=== PATIENT | male | born 1945 | race Caucasian/White ===

== ENCOUNTER → 2016-12-17 | Outpatient (CLI) | payer OTHER ==
[2016-04-22 11:12] VITALS: BP 114/72
--- NOTE | 2016-12-17 11:27 | MRI ---
MRI right knee without contrast Indication: Right knee pain Technique: Multisequence, multiplanar MR images of the right knee were obtained without IV contrast. Comparison: None Findings: No acute fracture, malalignment or suspicious osseous lesion is identified. There is diffuse, full thickness cartilage loss throughout the medial femorotibial compartment with patchy subchondral edema within the posterior weight-bearing medial femoral condyle. The lateral fem otibial and patellofemoral articular cartilage appears relatively well-maintained apart from small p artial thickness cartilage fissures along the mid sagittal ridge and medial patellar facet. Advanced degenerative changes of the proximal tibiofibular articulation are noted with prominent subchondral cyst formation. A small intraosseous ganglion within the posterior lateral tibial plateau is presen t. Prominent tricompartmental marginal osteophytes are noted. There is a small joint effusion. No lo ose intra-articular bodies or Malhotra's cyst is identified. There is a complex degenerative tear of the posterior horn medial meniscus with involvement of the p osterior root. There is also a complex central free edge tear of the medial meniscal body with exten patrick into the anterior junctional zone. There is small, 8 mm multiseptated cyst within the inferior medial gutter, likely a parameniscal cyst. The lateral meniscus is intact. The ACL is attenuated with diffuse intermediate intrasubstance signal. The PCL is intact. There is s mall edema surrounding the superficial MCL, which appears intact. The major lateral stabilizers of t he knee and extensor mechanism are unremarkable. Impression: 1. 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 2. Associated complex degenerative tears of the posterior horn and body medial meniscus with an 8 mm parameniscal cyst within the inferior medial gutter. 3. Mild edema surrounding the intact superficial MCL is either reactive from meniscal tear or reflec t mild grade 1 sprain. 4. 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 5. Small, likely reactive joint effusion. Mucoid ACL Reported By:
== END ==
LOC: RAD 08:31
PROVIDERS: ATTEND Internal Medicine
DX: M25.561 Pain in right knee (principal); M17.0 Bilateral primary osteoarthritis of knee
CPT/HCPCS: 73721

== ENCOUNTER 2020-11-23 14:12 | Inpatient (IN) ==
[2020-11-23 16:43] LABS: BASOPHILS % (AUTO) 0.1 % (0.2-1.0); EOSINOPHILS % (AUTO) 0.5 % (0.9-2.9); HEMOGLOBIN 12.9 g/dL (13.5-18.0); LYMPHOCYTES # (AUTO) 0.1 X10^3/uL (1.3-2.9); LYMPHOCYTES % (AUTO) 1.3 % (21.0-51.0); MEAN CORPUSCULAR HEMOGLOBIN 33.1 pg (27.0-34.0); MEAN CORPUSCULAR HGB CONC 34.8 g/dL (33.0-35.0); MEAN CORPUSCULAR VOLUME 95.2 fL (80.0-100.0); MEAN PLATELET VOLUME 10.2 fL (7.4-11.0); MONOCYTES # (AUTO) 0 x10^3/uL (0.3-0.8); MONOCYTES % (AUTO) 0.8 % (0.0-13.0); NEUTROPHILS # (AUTO) 4.7 x10^3/uL (2.2-4.8); NEUTROPHILS % (AUTO) 97.3 % (42.0-75.0); PLATELET COUNT 78 X10^3/uL (150.0-450.0); RED BLOOD COUNT 3.89 X10^6/uL (4.7-6.0); RED CELL DISTRIBUTION WIDTH 14.9 % (11.6-16.5); WHITE BLOOD COUNT 4.8 X10^3/uL (3.6-10.0)
[2020-11-23 16:52] LABS: ALBUMIN 2.6 g/dL (3.4-5.0); CALCIUM 9.1 mg/dL (8.5-10.1); COR CA(FOR HYPOALB) 10.2 mg/dL (8.5-10.1); CREATININE 4.45 mg/dL (0.70-1.30); TOTAL PROTEIN 7.3 g/dL (6.4-8.2)
[2020-11-23 16:58] LABS: BAND NEUTROPHILS % 12 % (0-10); PLATELET MORPHOLOGY COMMENT NORMAL (NORMAL)
[2020-11-23] MEDS ORDERED: LEVAQUIN PREMIX IV 500 MG 500 MG/100 ML BAG IV SCH (17:00)
[2020-11-23] MEDS ORDERED: NS 100 ML IV 100 ML ONE (17:23)
[2020-11-23] MEDS: NS 1000 ML 1,000 ML IV SCH (17:51)
[2020-11-23] MEDS: ZOSYN VIAL 3.375 GRAMS 3.375 G in NS 100 ML IV + SPIKE MINIBAG* 100 ML IV SCH ×2 (18:32→23:25)
[2020-11-23 18:59] LABS: CKMB % 1.8 % (<4); CREATINE KINASE 56 Units/L (39-308); CREATINE KINASE MB < 1.0 ng/mL (0-4.0); TROPONIN I < 0.02 ng/mL (0-1.5)
[2020-11-23] MEDS ORDERED: DILAUDID PO PRN (19:59)
[2020-11-23] MEDS: ZOCOR TAB 40 MG PO SCH (20:55)
[2020-11-23] MEDS: LIPITOR TAB 40 MG PO SCH (20:55)
[2020-11-23] MEDS: CARDIZEM CD 240 MG 24-HR PO SCH (23:28)
[2020-11-24] MEDS: NS 1000 ML 1,000 ML IV SCH ×5 (05:33→21:05)
[2020-11-24] MEDS: ZOSYN VIAL 3.375 GRAMS 3.375 G in NS 100 ML IV + SPIKE MINIBAG* 100 ML IV SCH (05:34)
[2020-11-24] MEDS: SYNTHROID 50 mcg TAB PO SCH (06:15)
[2020-11-24 06:31] LABS: BASOPHILS % (AUTO) 0.4 % (0.2-1.0); EOSINOPHILS # (AUTO) 0.4 x10^3/uL (0.0-0.2); EOSINOPHILS % (AUTO) 6.9 % (0.9-2.9); HEMATOCRIT 33.8 % (42.0-54.0); HEMOGLOBIN 11.8 g/dL (13.5-18.0); LYMPHOCYTES # (AUTO) 0.3 X10^3/uL (1.3-2.9); LYMPHOCYTES % (AUTO) 3.9 % (21.0-51.0); MEAN CORPUSCULAR HEMOGLOBIN 33.2 pg (27.0-34.0); MEAN CORPUSCULAR HGB CONC 34.9 g/dL (33.0-35.0); MEAN CORPUSCULAR VOLUME 95.1 fL (80.0-100.0); MONOCYTES # (AUTO) 0.4 x10^3/uL (0.3-0.8); MONOCYTES % (AUTO) 5.8 % (0.0-13.0); NEUTROPHILS # (AUTO) 5.3 x10^3/uL (2.2-4.8); PLATELET COUNT 73 X10^3/uL (150.0-450.0); RED BLOOD COUNT 3.55 X10^6/uL (4.7-6.0); RED CELL DISTRIBUTION WIDTH 15.2 % (11.6-16.5); WHITE BLOOD COUNT 6.4 X10^3/uL (3.6-10.0)
[2020-11-24 06:42] LABS: LACTIC ACID 2.5 mmol/L (0.4-2.0)
[2020-11-24 06:44] LABS: ALBUMIN 2.2 g/dL (3.4-5.0); CALCIUM 8.4 mg/dL (8.5-10.1); CARBON DIOXIDE 16.1 mmol/L (21-32); COR CA(FOR HYPOALB) 9.8 mg/dL (8.5-10.1); CREATININE 4.75 mg/dL (0.70-1.30); TOTAL PROTEIN 6.7 g/dL (6.4-8.2)
[2020-11-24 07:18] LABS: BAND NEUTROPHILS % 17 % (0-10); PLATELET MORPHOLOGY COMMENT NORMAL (NORMAL)
[2020-11-24] MEDS: VITAMIN D3 125 mcg (5,000 UNITS) PO SCH (08:25)
[2020-11-24] MEDS: ASPIRIN EC 81 MG PO SCH (08:25)
[2020-11-24] MEDS: CARDIZEM CD 240 MG 24-HR PO SCH ×2 (08:25→21:00)
[2020-11-24] MEDS: HEMOCYTE-PLUS PO SCH (08:25)
[2020-11-24] MEDS ORDERED: LEVOTHYROXINE 50 MCG PO SCH (09:00)
[2020-11-24] MEDS ORDERED: FERROUS SULFATE PO SCH (09:00)
--- NOTE | 2020-11-24 10:03 | DR.H&P ---
H&P - History & Physical for Day of: H&P Date: 11/23/20 - Chief Complaint Chief Complaint: SOB, LOWER EXTREMITY WEAKNESS, LEFT KNEE PAIN AND SWELLING, CHILLS, VOMITING, DECREASED APPETITE - History of Present Illness History of Present Illness: IS A 75 YEAR OLD W/M WHO IS A PATIENT OF OURS. HE WAS A DIRECT ADMISSION TO THE HOSPITAL DUE TO COMPLAINTS OF SHORTNESS OF BREATH, WEAKNESS TO BILATERAL LOWER EXTREMITIES. LEFT KNEE PAIN AND SWELLING. PATIENT REPORTS THAT HE HAS BEEN UNABLE TO BEAR WEIGHT ON THE LEFT LEG. PATIENT ALSO COMPLAINS OF CHILLS, VOMITING, AND DECREASED APPETITE. LEFT KNEE PAIN IS DESCRIBED THROBBING, CONSTANT, AND WAS RATED A 7/10. HE WAS SEEN IN THE ER ON 11/22. LABS WERE DRAWN AT THAT TIME. HIS BUN WAS 40 AND CREATININE 2.35. CHEST XRAY FROM THE ER REVEALED CARDIOMEGALY AND PULMONARY VASCULAR CONGESTION. LEFT KNEE XRAY REVEALED: SOFT TISSUE SWELLING WITH PROBABLE SMALL JOINT EFFUSION. HE WAS SENT HOME TO FOLLOW UP WITH US, HOWEVER SYMPTOMS PERSISTED AND WEAKNESS HAS PROGRESSIVELY GOTTEN WORSE. PATIENTS SPOUSE REPORTS THAT SHE HAS TO CALL HER SONS TO ASSIST THE PATIENT IN AMBULATING DUE TO SEVERE WEAKNESS. ON PATIENTS ARRIVAL TO THE HOSPITAL FOR ADMISSION, HIS VITALS WERE 98.0-80-24-95%-101/63. LABS WERE OBTAINED. ABNORMAL LAB VALUES INCLUDE THE FOLLOWING: RBC 3.89, HGB 12.9, HCT 37.0, PLT COUNT 78, POTASSIUM 3.1, BUN 61, CREATININE 4.45, GLCUOSE 181, TOTAL BILI 1.80, ALK PHOS 195, ALBUMIN 2.6, GLOBULIN 4.7, LACTIC ACID 4.8. STOOL IS POSITIVE FOR OCCULT BLOOD AND WHITE CELLS. BLOOD AND STOOL CULTURES WERE SET UP. HE WAS STARTED ON NORMAL SALINE AT 150 ML/HR, ZOSYN 3.375G IV TID, LEVAQUIN 250MG IV Q48H, HUMULIN R SLIDING SCALE, OTBS ACHS, AND HIS HOME MEDICATIONS OF ECOTRIN 81MG, LIPITOR, CARDIZEM, DILAUDID, SYNTHROID, HEMOCYTE PLUS, AND ZOCOR WERE RESUMED. WE PLAN TO OBTAIN BILATERAL LOWER EXTREMITY VENOUS DOPPLERS AND A CHEST XRAY. OTHERWISE, WE WILL FOLLOW UP WITH AM LABS AND CONTINUE TO MONITOR. TIME SPENT ON CLINICAL ASSESSMENT, REVIEWING LABS AND IMAGING, DECISION MAKING, AND DOCUMENTATION GREATER THAN 75 MINUTES. - Past Medical History Past Medical History: Arthritis, Coronary Artery Disease, Diabetes, Dyslipidemia, Hypertension, Hypothyroidism, Kidney Stones - Past Surgical History Surgical History: CABG/Valve Surgery, Ortho Surgery Additional Surgical History: BILATERAL TKA, HERNIA REPAIR - Family History Family Medical History: [place], Hypertension - Social History Does any household member use tobacco: No Alcohol Use: None Drug Use: None - Medications Home Medications: pseudoephedrine Allergy (Verified 11/23/20 17:33) CONTINUE taking the following medications aspirin [Aspir-81] 81 mg PO DAILY 11/23/20 [History] atorvastatin 40 mg PO HS 11/23/20 [History] cholecalciferol (vitamin D3) [Vitamin D3] 125 mcg PO DAILY 11/23/20 [History] diltiazem HCl 240 mg PO BID 11/23/20 [History] ferrous sulfate [Iron (ferrous sulfate)] 325 mg PO DAILY 11/23/20 [History] hydralazine 25 mg PO TID 11/23/20 [History] hydromorphone 4 mg PO TID PRN 11/23/20 [History] levothyroxine 50 mcg PO DAILY 11/23/20 [History] losartan 100 mg PO HS 11/23/20 [History] modafinil [Provigil] 200 mg PO DAILY 11/23/20 [History] sotalol [Betapace] 80 mg PO BID 11/23/20 [History] tamsulosin 0.4 mg PO HS 11/23/20 [History] - Review of Systems Constitutional: See HPI, Chills, Weakness Eyes: No Symptoms Reported ENT: No Symptoms Reported Respiratory: Shortness of Breath, SOB with Excertion Cardiovascular: No Symptoms Reported Gastrointestinal: Vomiting Genitourinary: No Symptoms Reported Musculoskeletal: See HPI, Leg Pain, Other (LEFT KNEE PAIN ) Neurological: Weakness - Physical Exam Vital Signs: Temperature 97.6 F Pulse Rate [Brachial] 79 Respiratory Rate 24 Blood Pressure [Left Arm] 118/64 O2 Sat by Pulse Oximetry 99 Oriented: Normal Eyes: Normal Ear: Normal Nose: Normal Throat: Normal Respiratory: Wheezes Throughout Cardiovascular: Normal : Normal Auscultation: Bowel Sounds: Normal Palpation: Normal Tenderness: Normal Skin: Red, Hot Musculoskeletal: Right, Left, Knee, Swelling, Tender Psychiatric: Normal Mood Description: Calm Affect: Normal Speech Pattern: Clear - Assessment/Plan (1) Acute renal failure Qualifiers: Acute renal failure type: unspecified Qualified Code(s): N17.9 - Acute kidney failure, unspecified Status: Acute Plan: ADMIT, NORMAL SALINE AT 150 ML/HR, ZOSYN 3.375G IV TID, LEVAQUIN 250MG IV Q48H, HUMULIN R SLIDING SCALE, OTBS ACHS, AND HIS HOME MEDICATIONS OF ECOTRIN 81MG, LIPITOR, CARDIZEM, DILAUDID, SYNTHROID, HEMOCYTE PLUS, AND ZOCOR WERE RESUMED. (2) Lower extremity cellulitis Qualifiers: Laterality: left Qualified Code(s): L03.116 - Cellulitis of left lower limb Status: Acute (3) Dehydration Status: Acute (4) Hypokalemia Status: Acute (5) Nausea and vomiting Qualifiers: Vomiting type: unspecified Vomiting Intractability: non-intractable Qualified Code(s): R11.2 - Nausea with vomiting, unspecified Status: Acute (6) Generalized weakness Status: Acute - Allergies Allergies/Adverse Reactions: Allergies Allergy/AdvReac Type Severity Reaction Status Date / Time pseudoephedrine Allergy Verified 11/23/20 17:33
[2020-11-24] MEDS: XARELTO PO SCH (10:12)
--- NOTE | 2020-11-24 10:34 | RAD ---
HISTORYsob, lower extremity cellulitis, renal failureSTUDYCHEST x-ray, 1 VIEWCOMPARISONX-ray 11/22/2020FINDINGSPrior cardiac surgery. Cardiomegaly is seen but is improved. Pulmonary venous congestion is present but improved. Likely improving mild pulmonary edema. No pneumothorax or pleural effusion is seen.IMPRESSIONLikely CHF and mild pulmonary edema but appearance is improved from prior study.Electronically signed by: Gary Noriega (Nov 24, 2020 10:32:46)
--- NOTE | 2020-11-24 12:25 | VAS ---
Bilateral lower extremity venous DopplerIndication: Bilateral leg painTECHNIQUEDynamic grayscale and color Doppler imaging through the bilateral lower extremity veins compression techniques and spectral analysis.FINDINGSThe bilateral common femoral veins, superficial femoral veins throughout their lengths and popliteal veins are patent and compressible with normal respiratory phasicity. Visualized calf veins are patent. Reactive lymph nodes seen in the left inguinal region.IMPRESSIONNo left or right lower extremity deep vein thrombosis. Left inguinal adenopathy, presumably reactive. Correlate with physical exam.Electronically signed by: THELMA ALATORRE (Nov 24, 2020 12:23:09)
[2020-11-24] MEDS ORDERED: XYLOCAINE 1 % (PLAIN) ONE (17:21)
[2020-11-24] MEDS: ZOFRAN INJ 4 MG VIAL IVP PRN (18:12)
[2020-11-24] MEDS: ZOCOR TAB 40 MG PO SCH (21:00)
[2020-11-24] MEDS: LIPITOR TAB 40 MG PO SCH (21:00)
[2020-11-24] MEDS: ZOSYN VIAL 3.375 GRAMS 3.375 G in NS 50 ML IV + SPIKE MINIBAG* 50 ML IV SCH (21:00)
[2020-11-24] MEDS: SNACK - Diabetic Appropriate PO SCH (21:56)
[2020-11-25] MEDS: NS 1000 ML 1,000 ML IV SCH ×3 (02:44→09:53)
[2020-11-25] MEDS: SYNTHROID 50 mcg TAB PO SCH (05:36)
[2020-11-25 06:00] LABS: BASOPHILS % (AUTO) 0.4 % (0.2-1.0); EOSINOPHILS # (AUTO) 0.2 x10^3/uL (0.0-0.2); EOSINOPHILS % (AUTO) 1.8 % (0.9-2.9); HEMATOCRIT 29.8 % (42.0-54.0); HEMOGLOBIN 10.2 g/dL (13.5-18.0); LYMPHOCYTES # (AUTO) 0.3 X10^3/uL (1.3-2.9); LYMPHOCYTES % (AUTO) 2.9 % (21.0-51.0); MEAN CORPUSCULAR HGB CONC 34.4 g/dL (33.0-35.0); MEAN PLATELET VOLUME 10.6 fL (7.4-11.0); MONOCYTES # (AUTO) 0.7 x10^3/uL (0.3-0.8); MONOCYTES % (AUTO) 6.4 % (0.0-13.0); NEUTROPHILS # (AUTO) 9.8 x10^3/uL (2.2-4.8); NEUTROPHILS % (AUTO) 88.5 % (42.0-75.0); PLATELET COUNT 99 X10^3/uL (150.0-450.0); RED CELL DISTRIBUTION WIDTH 15.4 % (11.6-16.5)
[2020-11-25 06:33] LABS: ALBUMIN 1.9 g/dL (3.4-5.0); CARBON DIOXIDE 15.2 mmol/L (21-32); COR CA(FOR HYPOALB) 9.7 mg/dL (8.5-10.1); CREATININE 4.58 mg/dL (0.70-1.30); TOTAL PROTEIN 6.5 g/dL (6.4-8.2)
[2020-11-25 07:01] LABS: BAND NEUTROPHILS % 10 % (0-10)
[2020-11-25 07:02] LABS: PLATELET MORPHOLOGY COMMENT NORMAL (NORMAL)
--- NOTE | 2020-11-25 07:11 | RAD ---
HISTORYShortness of breath, acute renal failureSTUDYChest AP [id number]/12/2021FINDINGSPatient is rotated slightly to the left. Patient is status post m edian sternotomy. The heart remains enlarged. No definite congestive heart failure on today's examina tion. No definite acute alveolar infiltrates or pleural effusions are identified. Bony thorax is unre markable.IMPRESSIONCardiomegaly without congestive heart failureNo definite infiltratesElectronically signed by: JUSTINE SOUSA (Nov 25, 2020 07:09:51)
[2020-11-25] MEDS: XARELTO PO SCH (08:41)
[2020-11-25] MEDS: ASPIRIN EC 81 MG PO SCH (08:41)
[2020-11-25] MEDS: HEMOCYTE-PLUS PO SCH (08:41)
[2020-11-25] MEDS: CARDIZEM CD 240 MG 24-HR PO SCH ×2 (08:41→20:53)
[2020-11-25] MEDS: VITAMIN D3 125 mcg (5,000 UNITS) PO SCH (08:41)
[2020-11-25] MEDS: ZOSYN VIAL 3.375 GRAMS 3.375 G in NS 50 ML IV + SPIKE MINIBAG* 50 ML IV SCH ×2 (08:43→20:55)
[2020-11-25] MEDS: LEVAQUIN PREMIX IV 250 MG 250 MG/50 ML BAG IV SCH (08:43)
[2020-11-25] MEDS ORDERED: NS 1000 ML 1,000 ML IV ONE ×2 (10:23→10:24)
[2020-11-25] MEDS ORDERED: SODIUM BICARBONATE IV SCH ×2 (11:00)
[2020-11-25] MEDS ORDERED: NS IV SCH ×2 (11:00)
[2020-11-25 11:01] LABS: BILIRUBIN,URINE NEGATIVE (NEGATIVE); BLOOD/HEMOGLOBIN,URINE 2+ (NEGATIVE); GLUCOSE, URINE NEGATIVE (NEGATIVE); KETONES,URINE NEGATIVE (NEGATIVE); LEUKOCYTE ESTERASE ,URINE NEGATIVE (NEGATIVE); NITRITES,URINE NEGATIVE (NEGATIVE); PROTEIN,URINE 2+ (NEGATIVE); UROBILINOGEN,URINE NORMAL (NORMAL)
[2020-11-25 11:08] LABS: AMORPHOUS SEDIMENT,UR 2+ /HPF (NEGATIVE); APPEARANCE,URINE CLEAR (CLEAR); BACTERIA,URINE TRACE /HPF (NEGATIVE); COLOR,URINE YELLOW (YELLOW); SQUAMOUS EPITHELIAL CELL,UR FEW /HPF (NEGATIVE)
[2020-11-25] MEDS: NS 1000 ML 1,000 ML with SODIUM BICARBONATE 8.4% INJ ADULT 100 ML IV SCH ×4 (12:00→20:53)
[2020-11-25] MEDS ORDERED: PHARMACY CONSULT - VANCOMYCIN XX SCH (14:00)
[2020-11-25] MEDS ORDERED: VANCOMYCIN IV *PREMIX 1 G/200 ML BAG 1 G/200 ML PIGGYBACK IV NR (14:30)
[2020-11-25] MEDS: HumuLIN R SUBCUT PRN ×2 (16:58→20:54)
--- NOTE | 2020-11-25 17:26 | PCM.PROG ---
Progress Note - Progress Note for Day of Date of Exam: 11/24/20 - Subjective Subjective: WAS ADMITTED FOR ACUTE RENAL FAILURE, DEHYDRATION, LLE CELLULITIS, HYPOKALEMIA, GENERALIZED WEAKNESS, AND NAUSEA/VOMITING. TODAY, HE IS ALERT AND ORIENTED, LYING IN BED ON MORNING ROUNDS. HE CONTINUES WITH COMPLAINTS OF GENERALIZED WEAKNESS AND BILATERAL LOWER EXTREMITY PAIN AND WEAKNESS. PAIN IS WORSE IN LEFT KNEE. THERE IS MODERATE SWELLING OF THE LEFT KNEE. HE REPORTS BEING UNABLE TO LIFT LEGS OFF OF BED DUE TO SEVERE PAIN. HE DENIES NAUSEA/VOMITING THIS MORNING. ON EXAMINATION, HEART IS REGULAR IN RATE AND RHYTHM. BILATERAL LUNGS ARE NOTED TO HAVE DIMINISHED LUNG SOUNDS THROUGHOUT. ABDOMEN IS ROUND, SOFT, AND NON-TENDER WITH NORMAL BOWEL SOUNDS NOTED IN ALL QUADRANTS. LEFT KNEE NOTED WITH ERYTHEMA AND EDEMA. HIS VITALS THIS MORNING ARE: 97.6-76-28-97%-106/65. LABS WERE OBTAINED. ABNORMAL LAB VALUES INCLUDE THE FOLLOWING: RBC 3.55, HGB 11.8, HCT 33.8, PLT COUNT 73, D-DIMER 5.55, CARBON DIOXIDE 16.1, BUN 75, CREATININE 4.75, GLUCOSE 193, LACTIC ACID 2.5, CALCIUM 8.4 , TOTAL BILI 2.10, AST 41, BNP 1440, ALBUMIN 2.2. BLOOD, STOOL, AND URINE CULTURES ARE PENDING. WE WILL OBTAIN BILATERAL LOWER EXTREMITY VENOUS DOPPLERS AND CHEST XRAY TODAY. HE IS CURRENTLY RECEIVING NORMAL SALINE AT 150 ML/HR, ZOSYN 3.375G IV TID, LEVAQUIN 250MG IV Q48H, HUMULIN R SLIDING SCALE, OTBS ACHS, AND HIS HOME MEDICATIONS OF ECOTRIN 81MG, LIPITOR, CARDIZEM, DILAUDID, SYNTHROID, HEMOCYTE PLUS, AND ZOCOR WERE RESUMED. WE WILL START XARELTO 10MG PO DAILY TODAY. OTHERWISE, WE WILL FOLLOW UP WITH AM LABS AND CONTINUE TO MONITOR. TIME SPENT ON CLINICAL ASSESSMENT, REVIEWING LABS AND IMAGING, DECISION MAKING, AND DOCUMENTATION WAS GREATER THAN 45 MINUTES. - Past Medical Family Social History Past Med/Fam/Surg Hx: No changes since H&P Allergies: Allergies pseudoephedrine Allergy (Verified 11/23/20 17:33) - Review of Systems ROS: No change since H&P - Vital Signs and I&O's Vital Signs: Temperature 97.4 F Pulse Rate [Brachial] 59 Respiratory Rate 20 Blood Pressure [Left Arm] 128/62 O2 Sat by Pulse Oximetry 95 Intake and Output: Intake & Output 11/23/20 11/24/20 11/25/20 11/26/20 11:59 11:59 11:59 11:59 Intake Total 1690 / 1690 3052 / 3052 2680 / 2680 Output Total 100 / 100 800 / 800 600 / 600 Balance 1590 / 1590 2252 / 2252 2080 / 2080 - Physical Exam Oriented: Normal Eyes: Normal Ear: Normal Nose: Normal Throat: Normal Respiratory: Generalized, Diminished Cardiovascular: Normal : Normal Auscultation: Bowel Sounds: Normal Palpation: Normal Tenderness: Normal Skin: Red, Hot Musculoskeletal: Right, Left, Knee, Swelling, Tender Psychiatric: Normal Mood Description: Calm Affect: Normal Speech Pattern: Appropriate - Laboratory and Diagnostics Result Diagrams: 11/25/20 04:25 11/25/20 04:25 Labs: 11/24/20 07:00 Stool Stool Culture - Preliminary 11/24/20 07:00 Stool - Final 11/24/20 14:30 Urine,Clean Catch Urine Culture - Preliminary 11/23/20 16:25 Blood Blood Culture - Preliminary 11/23/20 16:15 Blood Blood Culture - Preliminary Laboratory WBC 11.0 X10^3/uL (3.6-10.0) H 11/25/20 04:25 RBC 3.10 X10^6/uL (4.7-6.0) L 11/25/20 04:25 Hgb 10.2 g/dL (13.5-18.0) L 11/25/20 04:25 Hct 29.8 % (42.0-54.0) L 11/25/20 04:25 MCV 96.0 fL (80.0-100.0) 11/25/20 04:25 MCH 33.0 pg (27.0-34.0) 11/25/20 04:25 MCHC 34.4 g/dL (33.0-35.0) 11/25/20 04:25 RDW 15.4 % (11.6-16.5) 11/25/20 04:25 Plt Count 99 X10^3/uL (150.0-450.0) L 11/25/20 04:25 Plt Count Comment Decreased (ADEQUATE) 11/25/20 04:25 MPV 10.6 fL (7.4-11.0) 11/25/20 04:25 Neut % (Auto) 88.5 % (42.0-75.0) H 11/25/20 04:25 Lymph % (Auto) 2.9 % (21.0-51.0) L 11/25/20 04:25 [place] % (Auto) 6.4 % (0.0-13.0) 11/25/20 04:25 Eos % (Auto) 1.8 % (0.9-2.9) 11/25/20 04:25 Baso % (Auto) 0.4 % (0.2-1.0) 11/25/20 04:25 Neut # (Auto) 9.8 x10^3/uL (2.2-4.8) H 11/25/20 04:25 Lymph # (Auto) 0.3 X10^3/uL (1.3-2.9) L 11/25/20 04:25 [place] # (Auto) 0.7 x10^3/uL (0.3-0.8) 11/25/20 04:25 Eos # (Auto) 0.2 x10^3/uL (0.0-0.2) 11/25/20 04:25 Baso # (Auto) 0.0 X10^3/uL (0.0-0.1) 11/25/20 04:25 Absolute Nucleated RBC 0.1 /100WBC 11/25/20 04:25 Total Counted 100 11/25/20 04:25 Neutrophils % (Manual) 84 % (39-76) H 11/25/20 04:25 Band Neutrophils % 10 % (0-10) 11/25/20 04:25 Lymphocytes % (Manual) 3 % (13-43) L 11/25/20 04:25 Monocytes % (Manual) 3 % (4-9) L 11/25/20 04:25 Plt Morphology Comment Normal (NORMAL) 11/25/20 04:25 RBC Morphology Normal (NORMAL) 11/25/20 04:25 D-Dimer 5.55 ug/ml (0.0-0.57) H* 11/24/20 09:16 Sodium 136 mmol/L (136-145) 11/25/20 04:25 Corrected Sodium 138 mmol/L (136-145) 11/25/20 04:25 Potassium 4.3 mmol/L (3.5-5.1) 11/25/20 04:25 Chloride 103 mmol/L (98-107) 11/25/20 04:25 Carbon Dioxide 15.2 mmol/L (21-32) L 11/25/20 04:25 BUN 92 mg/dL (7-18) H 11/25/20 04:25 Creatinine 4.58 mg/dL (0.70-1.30) H 11/25/20 04:25 Est GFR (MDRD) Af Amer 16 (>60) L 11/25/20 04:25 Est GFR (MDRD) Non-Af 13 (>60) L 11/25/20 04:25 Glucose 184 mg/dL (65-99) H 11/25/20 04:25 POC Glucose (mg/dL) 253 mg/dL (65-99) H 11/25/20 16:45 Lactic Acid 2.5 mmol/L (0.4-2.0) H 11/24/20 05:57 Uric Acid 7.9 mg/dL (3.5-7.2) H 11/25/20 04:25 Calcium 8.0 mg/dL (8.5-10.1) L 11/25/20 04:25 Corrected Calcium 9.7 mg/dL (8.5-10.1) 11/25/20 04:25 Total Bilirubin 2.30 mg/dL (0.2-1.0) H 11/25/20 04:25 AST 83 Units/L (15-37) H 11/25/20 04:25 ALT 24 Units/L (12-78) 11/25/20 04:25 Alkaline Phosphatase 160 Units/L (46-116) H 11/25/20 04:25 Creatine Kinase 56 Units/L (39-308) 11/23/20 16:15 CK-MB (CK-2) < 1.0 ng/mL (0-4.0) 11/23/20 16:15 CK/CKMB % Calc 1.8 % (<4) 11/23/20 16:15 Troponin I < 0.02 ng/mL (0-1.5) 11/23/20 16:15 B-Natriuretic Peptide 439 pg/mL (0-79) H 11/25/20 04:25 Total Protein 6.5 g/dL (6.4-8.2) 11/25/20 04:25 Albumin 1.9 g/dL (3.4-5.0) L 11/25/20 04:25 Globulin 4.6 g/dL (2.5-4.5) H 11/25/20 04:25 Albumin/Globulin Ratio 0.4 Ratio (1.1-2.1) L 11/25/20 04:25 Specimen Type Catherized urine 11/25/20 10:20 Urine Color Yellow (YELLOW) 11/25/20 10:20 Urine Appearance Clear (CLEAR) 11/25/20 10:20 Urine pH 5.0 (5.0 - 8.0) 11/25/20 10:20 Ur Specific [place] 1.020 (1.000-1.030) 11/25/20 10:20 Urine Protein 2+ (NEGATIVE) 11/25/20 10:20 Urine Glucose (UA) Negative (NEGATIVE) 11/25/20 10:20 Urine Ketones Negative (NEGATIVE) 11/25/20 10:20 Urine Occult Blood 2+ (NEGATIVE) 11/25/20 10:20 Urine Nitrite Negative (NEGATIVE) 11/25/20 10:20 Urine Bilirubin Negative (NEGATIVE) 11/25/20 10:20 Urine Urobilinogen Normal (NORMAL) 11/25/20 10:20 Ur Leukocyte Esterase Negative (NEGATIVE) 11/25/20 10:20 Urine RBC 3-5 /HPF (0-3) A 11/25/20 10:20 Urine WBC 0-2 /HPF (0-5) 11/25/20 10:20 Ur Squamous Epith Cells Few /HPF (NEGATIVE) 11/25/20 10:20 Amorphous Sediment 2+ /HPF (NEGATIVE) 11/25/20 10:20 Urine Bacteria Trace /HPF (NEGATIVE) 11/25/20 10:20 Ur Culture Indicated? No/not indicated 11/25/20 10:20 Stool Description 15g unformed brown 11/24/20 07:00 Stl Occult Blood (IFOB) Positive (NEGATIVE) A 11/24/20 07:00 Stool for White Cells Positive (NEGATIVE) A 11/24/20 07:00 Stl C. diff Tox B Gene Negative (NEGATIVE) 11/24/20 07:00 Stl C. diff [id number] Presumptive negative (NEGATIVE) 11/24/20 07:00 - Plan (1) Acute renal failure Status: Acute Qualifiers: Acute renal failure type: unspecified Qualified Code(s): N17.9 - Acute kidney failure, unspecified Plan: , NORMAL SALINE AT 150 ML/HR, ZOSYN 3.375G IV TID, LEVAQUIN 250MG IV Q48H, HUMULIN R SLIDING SCALE, OTBS ACHS, XARELTO 10MG PO DAILY, AND HIS HOME MEDICATIONS OF ECOTRIN 81MG, LIPITOR, CARDIZEM, DILAUDID, SYNTHROID, HEMOCYTE PLUS, AND ZOCOR WERE RESUMED. (2) Lower extremity cellulitis Status: Acute Qualifiers: Laterality: left Qualified Code(s): L03.116 - Cellulitis of left lower limb (3) Dehydration Status: Acute (4) Hypokalemia Status: Acute (5) Nausea and vomiting Status: Acute Qualifiers: Vomiting type: unspecified Vomiting Intractability: non-intractable Qualified Code(s): R11.2 - Nausea with vomiting, unspecified (6) Generalized weakness Status: Acute
--- NOTE | 2020-11-25 17:53 | PCM.PROG ---
Progress Note - Progress Note for Day of Date of Exam: 11/25/20 - Subjective Subjective: WAS ADMITTED FOR ACUTE RENAL FAILURE, DEHYDRATION, LLE CELLULITIS, HYPOKALEMIA, GENERALIZED WEAKNESS, AND NAUSEA/VOMITING. TODAY, HE IS ALERT AND ORIENTED, LYING IN BED ON MORNING ROUNDS. HE CONTINUES WITH COMPLAINTS OF GENERALIZED WEAKNESS AND BILATERAL LOWER EXTREMITY PAIN AND WEAKNESS. PAIN IS WORSE IN LEFT KNEE. THERE CONTINUES TO BE SWELLING OF THE LEFT KNEE, SLIGHTLY IMPROVED SINCE YESTERDAY. HE DENIES NAUSEA/VOMITING THIS MORNING. ON EXAMINATION, HEART IS REGULAR IN RATE AND RHYTHM. BILATERAL LUNGS ARE NOTED TO HAVE DIMINISHED LUNG SOUNDS THROUGHOUT. ABDOMEN IS ROUND, SOFT, AND NON-TENDER WITH NORMAL BOWEL SOUNDS NOTED IN ALL QUADRANTS. LEFT KNEE NOTED WITH ERYTHEMA AND EDEMA. HIS VITALS THIS MORNING ARE: 98.4-58-20-98%-116/58. LABS WERE OBTAINED. ABNORMAL LAB VALUES INCLUDE THE FOLLOWING: HGB 11.0, HCT 3.10, HGB 10.2, HCT 29.8, PLT COUNT 99, CARBON DIOXIDE 15.2, BUN 92, CREATININE 4.58, GLUCOSE 184, URIC ACID 7.9, CALCIUM 8.0, TOTAL BILI 2.30, AST 83, ALK PHOS 160, BNP 439, ALBUMIN 1.9. BLOOD, STOOL, AND URINE CULTURES ARE PENDING. PRELIMINARY BLOOD CULTURES REVEALED: GRAM POSITIVE COCCI. VENOUS DOPPLERS WERE NEGATIVE. CHEST XRAY OBTAINED AND REVEALED: Cardiomegaly without congestive heart failure. No definite infiltrates. HE IS CURRENTLY RECEIVING NORMAL SALINE AT 150 ML/HR, ZOSYN 3.375G IV TID, LEVAQUIN 250MG IV Q48H, HUMULIN R SLIDING SCALE, OTBS ACHS, AND HIS HOME MEDICATIONS OF ECOTRIN 81MG, XARELTO 10MG PO DAILY, LIPITOR, CARDIZEM, DILAUDID, SYNTHROID, HEMOCYTE PLUS, AND ZOCOR WERE RESUMED. TODAY, WE WILL ADD VANCOMYCIN. WE WILL ADMINISTER (TWO) 1 LITER NORMAL SALINE BOLUSES. WE WILL THEN ADD TWO AMPS OF SODIUM BICARBONATE TO EACH LITER OF IV MAINTENANCE FLUIDS. WE WILL INSERT A SHEA CATHETER AND OBTAIN AN ECHOCARDIOGRAM. OTHERWISE, WE WILL FOLLOW UP WITH AM LABS AND CONTINUE TO MONITOR. TIME SPENT ON CLINICAL ASSESSMENT, REVIEWING LABS AND IMAGING, DECISION MAKING, AND DOCUMENTATION WAS GREATER THAN 45 MINUTES. - Past Medical Family Social History Past Med/Fam/Surg Hx: No changes since H&P Allergies: Allergies pseudoephedrine Allergy (Verified 11/23/20 17:33) - Review of Systems ROS: No change since H&P - Vital Signs and I&O's Vital Signs: Temperature 97.4 F Pulse Rate [Brachial] 59 Respiratory Rate 20 Blood Pressure [Left Arm] 128/62 O2 Sat by Pulse Oximetry 95 Intake and Output: Intake & Output 11/23/20 11/24/20 11/25/20 11/26/20 11:59 11:59 11:59 11:59 Intake Total 1690 / 1690 3052 / 3052 2680 / 2680 Output Total 100 / 100 800 / 800 600 / 600 Balance 1590 / 1590 2252 / 2252 2079 / 2079 - Physical Exam Oriented: Normal Eyes: Normal Ear: Normal Nose: Normal Throat: Normal Respiratory: Generalized, Diminished Cardiovascular: Normal : Normal Auscultation: Bowel Sounds: Normal Palpation: Normal Tenderness: Normal Skin: Red, Hot Musculoskeletal: Right, Left, Knee, Swelling, Tender Psychiatric: Normal Mood Description: Calm Affect: Normal Speech Pattern: Appropriate - Laboratory and Diagnostics Result Diagrams: 11/25/20 04:25 11/25/20 04:25 Labs: 11/24/20 07:00 Stool Stool Culture - Preliminary 11/24/20 07:00 Stool - Final 11/24/20 14:30 Urine,Clean Catch Urine Culture - Preliminary 11/23/20 16:25 Blood Blood Culture - Preliminary 11/23/20 16:15 Blood Blood Culture - Preliminary Laboratory WBC 11.0 X10^3/uL (3.6-10.0) H 11/25/20 04:25 RBC 3.10 X10^6/uL (4.7-6.0) L 11/25/20 04:25 Hgb 10.2 g/dL (13.5-18.0) L 11/25/20 04:25 Hct 29.8 % (42.0-54.0) L 11/25/20 04:25 MCV 96.0 fL (80.0-100.0) 11/25/20 04:25 MCH 33.0 pg (27.0-34.0) 11/25/20 04:25 MCHC 34.4 g/dL (33.0-35.0) 11/25/20 04:25 RDW 15.4 % (11.6-16.5) 11/25/20 04:25 Plt Count 99 X10^3/uL (150.0-450.0) L 11/25/20 04:25 Plt Count Comment Decreased (ADEQUATE) 11/25/20 04:25 MPV 10.6 fL (7.4-11.0) 11/25/20 04:25 Neut % (Auto) 88.5 % (42.0-75.0) H 11/25/20 04:25 Lymph % (Auto) 2.9 % (21.0-51.0) L 11/25/20 04:25 [place] % (Auto) 6.4 % (0.0-13.0) 11/25/20 04:25 Eos % (Auto) 1.8 % (0.9-2.9) 11/25/20 04:25 Baso % (Auto) 0.4 % (0.2-1.0) 11/25/20 04:25 Neut # (Auto) 9.8 x10^3/uL (2.2-4.8) H 11/25/20 04:25 Lymph # (Auto) 0.3 X10^3/uL (1.3-2.9) L 11/25/20 04:25 [place] # (Auto) 0.7 x10^3/uL (0.3-0.8) 11/25/20 04:25 Eos # (Auto) 0.2 x10^3/uL (0.0-0.2) 11/25/20 04:25 Baso # (Auto) 0.0 X10^3/uL (0.0-0.1) 11/25/20 04:25 Absolute Nucleated RBC 0.1 /100WBC 11/25/20 04:25 Total Counted 100 11/25/20 04:25 Neutrophils % (Manual) 84 % (39-76) H 11/25/20 04:25 Band Neutrophils % 10 % (0-10) 11/25/20 04:25 Lymphocytes % (Manual) 3 % (13-43) L 11/25/20 04:25 Monocytes % (Manual) 3 % (4-9) L 11/25/20 04:25 Plt Morphology Comment Normal (NORMAL) 11/25/20 04:25 RBC Morphology Normal (NORMAL) 11/25/20 04:25 D-Dimer 5.55 ug/ml (0.0-0.57) H* 11/24/20 09:16 Sodium 136 mmol/L (136-145) 11/25/20 04:25 Corrected Sodium 138 mmol/L (136-145) 11/25/20 04:25 Potassium 4.3 mmol/L (3.5-5.1) 11/25/20 04:25 Chloride 103 mmol/L (98-107) 11/25/20 04:25 Carbon Dioxide 15.2 mmol/L (21-32) L 11/25/20 04:25 BUN 92 mg/dL (7-18) H 11/25/20 04:25 Creatinine 4.58 mg/dL (0.70-1.30) H 11/25/20 04:25 Est GFR (MDRD) Af Amer 16 (>60) L 11/25/20 04:25 Est GFR (MDRD) Non-Af 13 (>60) L 11/25/20 04:25 Glucose 184 mg/dL (65-99) H 11/25/20 04:25 POC Glucose (mg/dL) 253 mg/dL (65-99) H 11/25/20 16:45 Lactic Acid 2.5 mmol/L (0.4-2.0) H 11/24/20 05:57 Uric Acid 7.9 mg/dL (3.5-7.2) H 11/25/20 04:25 Calcium 8.0 mg/dL (8.5-10.1) L 11/25/20 04:25 Corrected Calcium 9.7 mg/dL (8.5-10.1) 11/25/20 04:25 Total Bilirubin 2.30 mg/dL (0.2-1.0) H 11/25/20 04:25 AST 83 Units/L (15-37) H 11/25/20 04:25 ALT 24 Units/L (12-78) 11/25/20 04:25 Alkaline Phosphatase 160 Units/L (46-116) H 11/25/20 04:25 Creatine Kinase 56 Units/L (39-308) 11/23/20 16:15 CK-MB (CK-2) < 1.0 ng/mL (0-4.0) 11/23/20 16:15 CK/CKMB % Calc 1.8 % (<4) 11/23/20 16:15 Troponin I < 0.02 ng/mL (0-1.5) 11/23/20 16:15 B-Natriuretic Peptide 439 pg/mL (0-79) H 11/25/20 04:25 Total Protein 6.5 g/dL (6.4-8.2) 11/25/20 04:25 Albumin 1.9 g/dL (3.4-5.0) L 11/25/20 04:25 Globulin 4.6 g/dL (2.5-4.5) H 11/25/20 04:25 Albumin/Globulin Ratio 0.4 Ratio (1.1-2.1) L 11/25/20 04:25 Specimen Type Catherized urine 11/25/20 10:20 Urine Color Yellow (YELLOW) 11/25/20 10:20 Urine Appearance Clear (CLEAR) 11/25/20 10:20 Urine pH 5.0 (5.0 - 8.0) 11/25/20 10:20 Ur Specific [place] 1.020 (1.000-1.030) 11/25/20 10:20 Urine Protein 2+ (NEGATIVE) 11/25/20 10:20 Urine Glucose (UA) Negative (NEGATIVE) 11/25/20 10:20 Urine Ketones Negative (NEGATIVE) 11/25/20 10:20 Urine Occult Blood 2+ (NEGATIVE) 11/25/20 10:20 Urine Nitrite Negative (NEGATIVE) 11/25/20 10:20 Urine Bilirubin Negative (NEGATIVE) 11/25/20 10:20 Urine Urobilinogen Normal (NORMAL) 11/25/20 10:20 Ur Leukocyte Esterase Negative (NEGATIVE) 11/25/20 10:20 Urine RBC 3-5 /HPF (0-3) A 11/25/20 10:20 Urine WBC 0-2 /HPF (0-5) 11/25/20 10:20 Ur Squamous Epith Cells Few /HPF (NEGATIVE) 11/25/20 10:20 Amorphous Sediment 2+ /HPF (NEGATIVE) 11/25/20 10:20 Urine Bacteria Trace /HPF (NEGATIVE) 11/25/20 10:20 Ur Culture Indicated? No/not indicated 11/25/20 10:20 Stool Description 15g unformed brown 11/24/20 07:00 Stl Occult Blood (IFOB) Positive (NEGATIVE) A 11/24/20 07:00 Stool for White Cells Positive (NEGATIVE) A 11/24/20 07:00 Stl C. diff Tox B Gene Negative (NEGATIVE) 11/24/20 07:00 Stl C. diff [id number] Presumptive negative (NEGATIVE) 11/24/20 07:00 - Plan (1) Acute renal failure Status: Acute Qualifiers: Acute renal failure type: unspecified Qualified Code(s): N17.9 - Acute kidney failure, unspecified Plan: NS BOLUS X 2, NORMAL SALINE WITH 2 AMPS SODIUM BICARB AT 150 ML/HR, ZOSYN 3.375G IV TID, LEVAQUIN 250MG IV Q48H, VANCOMYCIN, HUMULIN R SLIDING SCALE, OTBS ACHS, XARELTO 10MG PO DAILY, AND HIS HOME MEDICATIONS OF ECOTRIN 81MG, LIPITOR, CARDIZEM, DILAUDID, SYNTHROID, HEMOCYTE PLUS, AND ZOCOR WERE RESUMED. (2) Sepsis Status: Acute Qualifiers: Sepsis type: sepsis due to unspecified organism Sepsis acute organ dysfunction status: with acute organ dysfunction Severe sepsis acute organ dysfunction type: acute renal failure Acute renal failure type: unspecified Severe sepsis shock status: unspecified Qualified Code(s): A41.9 - Sepsis, unspecified organism; R65.20 - Severe sepsis without septic shock; N17.9 - Acute kidney failure, unspecified (3) Lower extremity cellulitis Status: Acute Qualifiers: Laterality: left Qualified Code(s): L03.116 - Cellulitis of left lower limb (4) Dehydration Status: Acute (5) Hypokalemia Status: Acute (6) Nausea and vomiting Status: Acute Qualifiers: Vomiting type: unspecified Vomiting Intractability: non-intractable Qualified Code(s): R11.2 - Nausea with vomiting, unspecified (7) Generalized weakness Status: Acute
[2020-11-25] MEDS: ZOFRAN INJ 4 MG VIAL IVP PRN (18:16)
[2020-11-25] MEDS: SNACK - Diabetic Appropriate PO SCH (20:00)
[2020-11-25] MEDS: LIPITOR TAB 40 MG PO SCH (20:53)
[2020-11-25] MEDS: ZOCOR TAB 40 MG PO SCH (20:54)
[2020-11-26] MEDS: NS 1000 ML 1,000 ML with SODIUM BICARBONATE 8.4% INJ ADULT 100 ML IV SCH ×8 (05:56→20:16)
[2020-11-26] MEDS: HumuLIN R SUBCUT PRN ×4 (05:56→20:17)
[2020-11-26] MEDS: SYNTHROID 50 mcg TAB PO SCH (05:57)
[2020-11-26 06:02] LABS: BASOPHILS % (AUTO) 0.2 % (0.2-1.0); EOSINOPHILS % (AUTO) 0.2 % (0.9-2.9); HEMATOCRIT 29.9 % (42.0-54.0); HEMOGLOBIN 10.5 g/dL (13.5-18.0); LYMPHOCYTES # (AUTO) 0.3 X10^3/uL (1.3-2.9); LYMPHOCYTES % (AUTO) 2.6 % (21.0-51.0); MEAN CORPUSCULAR HGB CONC 35.1 g/dL (33.0-35.0); MEAN CORPUSCULAR VOLUME 94.1 fL (80.0-100.0); MEAN PLATELET VOLUME 10.1 fL (7.4-11.0); MONOCYTES # (AUTO) 0.7 x10^3/uL (0.3-0.8); MONOCYTES % (AUTO) 7.1 % (0.0-13.0); NEUTROPHILS # (AUTO) 9.5 x10^3/uL (2.2-4.8); NEUTROPHILS % (AUTO) 89.9 % (42.0-75.0); PLATELET COUNT 105 X10^3/uL (150.0-450.0); RED BLOOD COUNT 3.18 X10^6/uL (4.7-6.0); RED CELL DISTRIBUTION WIDTH 15.4 % (11.6-16.5); WHITE BLOOD COUNT 10.5 X10^3/uL (3.6-10.0)
[2020-11-26 07:00] LABS: ALBUMIN 1.8 g/dL (3.4-5.0); CALCIUM 7.6 mg/dL (8.5-10.1); CARBON DIOXIDE 22.3 mmol/L (21-32); COR CA(FOR HYPOALB) 9.4 mg/dL (8.5-10.1); CREATININE 3.63 mg/dL (0.70-1.30); TOTAL PROTEIN 6.2 g/dL (6.4-8.2)
[2020-11-26 08:28] LABS: HEMATOCRIT 31.1 % (42.0-54.0); HEMOGLOBIN 10.8 g/dL (13.5-18.0)
--- NOTE | 2020-11-26 08:34 | RAD ---
HISTORYshortness of breathSTUDYCHEST x-ray, 1 VIEWCOMPARISONChest x-ray 11/25/2020FINDINGSPrior cardiac surgery. Probable cardiomegaly and possible CHF. Possible hazy lung infiltrates could be pulmonary edema but may be artifactual appearance from AP portable technique. Possible small pleural effusions. No pneumothorax is seen.IMPRESSIONCardiomegaly and possible CHF. Pulmonary edema is not excluded but appearance in the lungs could be artifactual. Continued x-ray follow-up is recommended.Electronically signed by: Gary Noriega (Nov 26, 2020 08:32:38)
[2020-11-26] MEDS: ZOFRAN INJ 4 MG VIAL IVP PRN ×2 (08:37→20:15)
[2020-11-26] MEDS: CARDIZEM CD 240 MG 24-HR PO SCH ×2 (08:38→20:15)
[2020-11-26] MEDS: ASPIRIN EC 81 MG PO SCH (08:38)
[2020-11-26] MEDS: HEMOCYTE-PLUS PO SCH (08:38)
[2020-11-26] MEDS: VITAMIN D3 125 mcg (5,000 UNITS) PO SCH (08:38)
[2020-11-26] MEDS: XARELTO PO SCH (08:38)
[2020-11-26] MEDS: ZOSYN VIAL 3.375 GRAMS 3.375 G in NS 50 ML IV + SPIKE MINIBAG* 50 ML IV SCH ×2 (09:37→20:15)
[2020-11-26] MEDS ORDERED: LASIX IVP ONE (10:12)
[2020-11-26] MEDS ORDERED: PHENERGAN INJ 25 MG IM PRN (10:14)
[2020-11-26] MEDS ORDERED: PHARMACY CONSULT - VANCOMYCIN XX SCH (11:00)
[2020-11-26] MEDS ORDERED: PEPCID 20 MG IV PREMIX* 20 MG/50 ML BAG IV SCH (11:00)
[2020-11-26] MEDS: PROTONIX INJ 40 MG VIAL IVP SCH ×2 (11:17→20:15)
[2020-11-26] MEDS ORDERED: PHARMACY COMMENT IV NR (13:30)
[2020-11-26 16:38] LABS: VANCOMYCIN,TROUGH 5.1 ug/mL (15-20)
[2020-11-26] MEDS ORDERED: VANCOMYCIN IV *PREMIX 1.25 G/250 ML BAG 1.25 G/250 ML PIGGYBACK IV SCH (17:00)
--- NOTE | 2020-11-26 19:51 | PCM.PROG ---
Progress Note - Progress Note for Day of Date of Exam: 11/26/20 - Subjective Subjective: IS BEING TREATED FOR SEPSIS, ACUTE RENAL FAILURE, DEHYDRATION, LLE CELLULITIS, HYPOKALEMIA, GENERALIZED WEAKNESS, AND NAUSEA/VOMITING. TODAY, HE IS ALERT AND ORIENTED, LYING IN BED ON MORNING ROUNDS. HE CONTINUES WITH COMPLAINTS OF GENERALIZED WEAKNESS AND BILATERAL LOWER EXTREMITY PAIN AND WEAKNESS. PAIN IS WORSE IN LEFT KNEE. THERE CONTINUES TO BE SWELLING OF THE LEFT KNEE. SWELLING AND ERYTHEMA HAS SLIGHTLY IMPROVED SINCE YESTERDAY. HE ADMITS TO NAUSEA AND VOMITING THIS MORNING. NURSING STAFF REPORTS THAT PATIENT VOMITED COFFEE GROUND EMESIS PRIOR TO MORNING ROUNDS. ON EXA MINATION, HEART IS REGULAR IN RATE AND RHYTHM. BILATERAL LUNGS ARE NOTED TO HAVE DIMINISHED LUNG SOUNDS THROUGHOUT. ABDOMEN IS ROUND, SOFT, AND NON-TENDER WITH NORMAL BOWEL SOUNDS NOTED IN ALL QUADRANTS. LEFT KNEE NOTED WITH ERYTHEMA AND EDEMA. HIS VITALS THIS MORNING ARE: 97.6-67-18-96%-159/77. LABS WERE OBTAINED. ABNORMAL LAB VALUES INCLUDE THE FOLLOWING: WBC 10.5, RBC 3.18, HGB 10.5, HCT 29.9, PLT COUNT 105, BUN 87, CREATININE 3.63, GLUCOSE 217, CALCIUM 7.6, TOTAL BILI 1.20, AST 81, ALK PHOS 189, BNP 747, TOTAL PROTEIN 6.2, ALBUMIN 1.8. BLOOD, STOOL, AND URINE CULTURES ARE PENDING. PRELIMINARY BLOOD CULTURES REVEALED: GRAM POSITIVE COCCI. VENOUS DOPPLERS WERE NEGATIVE. CHEST XRAY OBTAINED AND REVEALED: Cardiomegaly and possible CHF. Pulmonary edema is not excluded but appearance in the lungs could be artifactual. Continued x-ray follow-up is recommended. HE IS CURRENTLY RECEIVING NORMAL SALINE WITH 2 AMPS OF BICARB AT 150 ML/HR, VANCOMYCIN 1.25G IV DAILY, ZOSYN 3.375G IV TID, LEVAQUIN 250MG IV Q48H, HUMULIN R SLIDING SCALE, OTBS ACHS, AND HIS HOME MEDICATIONS OF ECOTRIN 81MG, XARELTO 10MG PO DAILY, LIPITOR, CARDIZEM, DILAUDID, SYNTHROID, HEMOCYTE PLUS, AND ZOCOR WERE RESUMED. TODAY, WE WILL ADD PEPCID 20MG IV BID, PROTONIX 40MG IV BID, AND LASIX 20MG IV X 1 DOSE. OTHERWISE, WE WILL FOLLOW UP WITH AM LABS AND CONTINUE TO MONITOR. TIME SPENT ON CLINICAL ASSESSMENT, REVIEWING LABS AND IMAGING, DECISION MAKING, AND DOCUMENTATION WAS GREATER THAN 45 MINUTES. - Past Medical Family Social History Past Med/Fam/Surg Hx: No changes since H&P Allergies: Allergies pseudoephedrine Allergy (Verified 11/23/20 17:33) - Review of Systems ROS: No change since H&P - Vital Signs and I&O's Vital Signs: Temperature 98.2 F Pulse Rate [Brachial] 74 Respiratory Rate 18 Blood Pressure [Left Arm] 162/83 O2 Sat by Pulse Oximetry 97 Intake and Output: Intake & Output 11/24/20 11/25/20 11/26/20 11/27/20 11:59 11:59 11:59 11:59 Intake Total 1690 / 1690 3052 / 3052 5361 / 5361 1460 / 1460 Output Total 100 / 100 800 / 800 2150 / 2150 2800 / 2800 Balance 1590 / 1590 2252 / 2252 3211 / 3211 -1340 / -1340 - Physical Exam Oriented: Normal Eyes: Normal Ear: Normal Nose: Normal Throat: Normal Respiratory: Generalized, Diminished Cardiovascular: Normal : Normal Auscultation: Bowel Sounds: Normal Palpation: Normal Tenderness: Normal Skin: Red, Hot Musculoskeletal: Right, Left, Knee, Swelling, Tender Psychiatric: Normal Mood Description: Calm Affect: Normal Speech Pattern: Clear, Appropriate - Laboratory and Diagnostics Result Diagrams: 11/26/20 08:21 11/26/20 16:06 Labs: 11/23/20 16:25 Blood Blood Culture - Preliminary 11/23/20 16:15 Blood Blood Culture - Preliminary 11/24/20 07:00 Stool Stool Culture - Final 11/24/20 07:00 Stool - Final 11/24/20 14:30 Urine,Clean Catch Urine Culture - Final Laboratory WBC 10.5 X10^3/uL (3.6-10.0) H 11/26/20 04:45 RBC 3.18 X10^6/uL (4.7-6.0) L 11/26/20 04:45 Hgb 10.8 g/dL (13.5-18.0) L 11/26/20 08:21 Hct 31.1 % (42.0-54.0) L 11/26/20 08:21 MCV 94.1 fL (80.0-100.0) 11/26/20 04:45 MCH 33.0 pg (27.0-34.0) 11/26/20 04:45 MCHC 35.1 g/dL (33.0-35.0) H 11/26/20 04:45 RDW 15.4 % (11.6-16.5) 11/26/20 04:45 Plt Count 105 X10^3/uL (150.0-450.0) L 11/26/20 04:45 Plt Count Comment Decreased (ADEQUATE) 11/25/20 04:25 MPV 10.1 fL (7.4-11.0) 11/26/20 04:45 Neut % (Auto) 89.9 % (42.0-75.0) H 11/26/20 04:45 Lymph % (Auto) 2.6 % (21.0-51.0) L 11/26/20 04:45 [place] % (Auto) 7.1 % (0.0-13.0) 11/26/20 04:45 Eos % (Auto) 0.2 % (0.9-2.9) L 11/26/20 04:45 Baso % (Auto) 0.2 % (0.2-1.0) 11/26/20 04:45 Neut # (Auto) 9.5 x10^3/uL (2.2-4.8) H 11/26/20 04:45 Lymph # (Auto) 0.3 X10^3/uL (1.3-2.9) L 11/26/20 04:45 [place] # (Auto) 0.7 x10^3/uL (0.3-0.8) 11/26/20 04:45 Eos # (Auto) 0.0 x10^3/uL (0.0-0.2) 11/26/20 04:45 Baso # (Auto) 0.0 X10^3/uL (0.0-0.1) 11/26/20 04:45 Absolute Nucleated RBC 0.0 /100WBC 11/26/20 04:45 Total Counted 100 11/25/20 04:25 Neutrophils % (Manual) 84 % (39-76) H 11/25/20 04:25 Band Neutrophils % 10 % (0-10) 11/25/20 04:25 Lymphocytes % (Manual) 3 % (13-43) L 11/25/20 04:25 Monocytes % (Manual) 3 % (4-9) L 11/25/20 04:25 Plt Morphology Comment Normal (NORMAL) 11/25/20 04:25 RBC Morphology Normal (NORMAL) 11/25/20 04:25 D-Dimer 5.55 ug/ml (0.0-0.57) H* 11/24/20 09:16 Sodium 142 mmol/L (136-145) 11/26/20 04:45 Corrected Sodium 145 mmol/L (136-145) 11/26/20 04:45 Potassium 3.5 mmol/L (3.5-5.1) 11/26/20 04:45 Chloride 107 mmol/L (98-107) 11/26/20 04:45 Carbon Dioxide 22.3 mmol/L (21-32) 11/26/20 04:45 BUN 87 mg/dL (7-18) H 11/26/20 04:45 Creatinine 3.00 mg/dL (0.70-1.30) H 11/26/20 16:06 Est GFR (MDRD) Af Amer 21 (>60) L 11/26/20 04:45 Est GFR (MDRD) Non-Af 17 (>60) L 11/26/20 04:45 Glucose 217 mg/dL (65-99) H 11/26/20 04:45 POC Glucose (mg/dL) 226 mg/dL (65-99) H 11/26/20 19:27 Lactic Acid 2.5 mmol/L (0.4-2.0) H 11/24/20 05:57 Uric Acid 7.9 mg/dL (3.5-7.2) H 11/25/20 04:25 Calcium 7.6 mg/dL (8.5-10.1) L 11/26/20 04:45 Corrected Calcium 9.4 mg/dL (8.5-10.1) 11/26/20 04:45 Total Bilirubin 1.20 mg/dL (0.2-1.0) H 11/26/20 04:45 AST 81 Units/L (15-37) H 11/26/20 04:45 ALT 32 Units/L (12-78) 11/26/20 04:45 Alkaline Phosphatase 189 Units/L (46-116) H 11/26/20 04:45 Creatine Kinase 56 Units/L (39-308) 11/23/20 16:15 CK-MB (CK-2) < 1.0 ng/mL (0-4.0) 11/23/20 16:15 CK/CKMB % Calc 1.8 % (<4) 11/23/20 16:15 Troponin I < 0.02 ng/mL (0-1.5) 11/23/20 16:15 B-Natriuretic Peptide 747 pg/mL (0-79) H* 11/26/20 04:45 Total Protein 6.2 g/dL (6.4-8.2) L 11/26/20 04:45 Albumin 1.8 g/dL (3.4-5.0) L 11/26/20 04:45 Globulin 4.4 g/dL (2.5-4.5) 11/26/20 04:45 Albumin/Globulin Ratio 0.4 Ratio (1.1-2.1) L 11/26/20 04:45 Specimen Type Catherized urine 11/25/20 10:20 Urine Color Yellow (YELLOW) 11/25/20 10:20 Urine Appearance Clear (CLEAR) 11/25/20 10:20 Urine pH 5.0 (5.0 - 8.0) 11/25/20 10:20 Ur Specific [place] 1.020 (1.000-1.030) 11/25/20 10:20 Urine Protein 2+ (NEGATIVE) 11/25/20 10:20 Urine Glucose (UA) Negative (NEGATIVE) 11/25/20 10:20 Urine Ketones Negative (NEGATIVE) 11/25/20 10:20 Urine Occult Blood 2+ (NEGATIVE) 11/25/20 10:20 Urine Nitrite Negative (NEGATIVE) 11/25/20 10:20 Urine Bilirubin Negative (NEGATIVE) 11/25/20 10:20 Urine Urobilinogen Normal (NORMAL) 11/25/20 10:20 Ur Leukocyte Esterase Negative (NEGATIVE) 11/25/20 10:20 Urine RBC 3-5 /HPF (0-3) A 11/25/20 10:20 Urine WBC 0-2 /HPF (0-5) 11/25/20 10:20 Ur Squamous Epith Cells Few /HPF (NEGATIVE) 11/25/20 10:20 Amorphous Sediment 2+ /HPF (NEGATIVE) 11/25/20 10:20 Urine Bacteria Trace /HPF (NEGATIVE) 11/25/20 10:20 Ur Culture Indicated? No/not indicated 11/25/20 10:20 Stool Description 15g unformed brown 11/24/20 07:00 Stl Occult Blood (IFOB) Positive (NEGATIVE) A 11/24/20 07:00 Stool for White Cells Positive (NEGATIVE) A 11/24/20 07:00 Stl C. diff Tox B Gene Negative (NEGATIVE) 11/24/20 07:00 Stl C. diff [id number] Presumptive negative (NEGATIVE) 11/24/20 07:00 Vancomycin Trough 5.1 ug/mL (15-) L 11/26/20 16:06 - Plan (1) Acute renal failure Status: Acute Qualifiers: Acute renal failure type: unspecified Qualified Code(s): N17.9 - Acute kidney failure, unspecified Plan: NORMAL SALINE WITH 2 AMPS SODIUM BICARB AT 150 ML/HR, ZOSYN 3.375G IV TID, LEVAQUIN 250MG IV Q48H, VANCOMYCIN, PEPCID IV BID, PROTONIX IV BID, HUMULIN R SLIDING SCALE, OTBS ACHS, XARELTO 10MG PO DAILY, AND HIS HOME MEDICATIONS OF ECOTRIN 81MG, LIPITOR, CARDIZEM, DILAUDID, SYNTHROID, HEMOCYTE PLUS, AND ZOCOR WERE RESUMED. (2) Sepsis Status: Acute Qualifiers: Sepsis type: sepsis due to unspecified organism Sepsis acute organ dysfunction status: with acute organ dysfunction Severe sepsis acute organ dysfunction type: acute renal failure Acute renal failure type: unspecified Severe sepsis shock status: unspecified Qualified Code(s): A41.9 - Sepsis, unspecified organism; R65.20 - Severe sepsis without septic shock; N17.9 - Acute kidney failure, unspecified (3) Lower extremity cellulitis Status: Acute Qualifiers: Laterality: left Qualified Code(s): L03.116 - Cellulitis of left lower limb (4) Dehydration Status: Acute (5) Hypokalemia Status: Acute (6) Nausea and vomiting Status: Acute Qualifiers: Vomiting type: unspecified Vomiting Intractability: non-intractable Qualified Code(s): R11.2 - Nausea with vomiting, unspecified (7) Generalized weakness Status: Acute
[2020-11-26] MEDS: SNACK - Diabetic Appropriate PO SCH (20:00)
[2020-11-26] MEDS: ZOCOR TAB 40 MG PO SCH (20:16)
[2020-11-26] MEDS: LIPITOR TAB 40 MG PO SCH (20:16)
[2020-11-27 05:34] LABS: BASOPHILS % (AUTO) 0.2 % (0.2-1.0); EOSINOPHILS % (AUTO) 0.2 % (0.9-2.9); HEMATOCRIT 29.5 % (42.0-54.0); HEMOGLOBIN 10.4 g/dL (13.5-18.0); LYMPHOCYTES # (AUTO) 0.5 X10^3/uL (1.3-2.9); LYMPHOCYTES % (AUTO) 6.9 % (21.0-51.0); MEAN CORPUSCULAR HEMOGLOBIN 32.9 pg (27.0-34.0); MEAN CORPUSCULAR HGB CONC 35.3 g/dL (33.0-35.0); MEAN CORPUSCULAR VOLUME 93.2 fL (80.0-100.0); MEAN PLATELET VOLUME 9.9 fL (7.4-11.0); MONOCYTES # (AUTO) 0.9 x10^3/uL (0.3-0.8); MONOCYTES % (AUTO) 12.2 % (0.0-13.0); NEUTROPHILS # (AUTO) 6.2 x10^3/uL (2.2-4.8); NEUTROPHILS % (AUTO) 80.5 % (42.0-75.0); PLATELET COUNT 111 X10^3/uL (150.0-450.0); RED BLOOD COUNT 3.16 X10^6/uL (4.7-6.0); RED CELL DISTRIBUTION WIDTH 15.6 % (11.6-16.5); WHITE BLOOD COUNT 7.7 X10^3/uL (3.6-10.0)
[2020-11-27] MEDS: SYNTHROID 50 mcg TAB PO SCH (05:41)
[2020-11-27] MEDS: HumuLIN R SUBCUT PRN ×3 (05:41→22:31)
[2020-11-27] MEDS: NS 1000 ML 1,000 ML with SODIUM BICARBONATE 8.4% INJ ADULT 100 ML IV SCH ×4 (05:41→13:33)
[2020-11-27 05:45] LABS: ALBUMIN 1.7 g/dL (3.4-5.0); CALCIUM 7.9 mg/dL (8.5-10.1); CARBON DIOXIDE 27.1 mmol/L (21-32); COR CA(FOR HYPOALB) 9.7 mg/dL (8.5-10.1); CREATININE 2.48 mg/dL (0.70-1.30); MAGNESIUM 2.6 mg/dL (1.7-2.9)
[2020-11-27 06:16] LABS: PLATELET MORPHOLOGY COMMENT NORMAL (NORMAL)
--- NOTE | 2020-11-27 07:59 | RAD ---
HISTORYShortness of breathSTUDYChest AP [id number]/2021FINDINGSPatient is status post median sternotomy. The heart is enlarged. No definite congestive heart failure is noted. No acute alveolar infiltrates or pleural effusions are identified. Bony thorax is unremarkable.IMPRESSIONCardiomegaly without congestive heart failureElect ronically signed by: JUSTINE SOUSA (Nov 27, 2020 07:57:52)
[2020-11-27] MEDS: ASPIRIN EC 81 MG PO SCH (10:00)
[2020-11-27] MEDS: VITAMIN D3 125 mcg (5,000 UNITS) PO SCH (10:00)
[2020-11-27] MEDS: VANCOMYCIN IV *PREMIX 1 G/200 ML BAG 1 G/200 ML PIGGYBACK IV SCH ×2 (10:00→22:07)
[2020-11-27] MEDS: XARELTO PO SCH (10:00)
[2020-11-27] MEDS: HEMOCYTE-PLUS PO SCH (10:00)
[2020-11-27] MEDS: PROTONIX INJ 40 MG VIAL IVP SCH ×2 (10:00→22:07)
[2020-11-27] MEDS: CARDIZEM CD 240 MG 24-HR PO SCH ×2 (10:46→22:05)
[2020-11-27] MEDS: ZOSYN VIAL 3.375 GRAMS 3.375 G in NS 50 ML IV + SPIKE MINIBAG* 50 ML IV SCH ×2 (11:00→22:04)
[2020-11-27] MEDS ORDERED: LASIX IVP ONE (11:13)
--- NOTE | 2020-11-27 11:19 | PCM.PROG ---
Progress Note - Progress Note for Day of Date of Exam: 11/27/20 - Subjective Subjective: IS BEING TREATED FOR SEPSIS, ACUTE RENAL FAILURE, DEHYDRATION, LLE CELLULITIS, HYPOKALEMIA, GENERALIZED WEAKNESS, AND NAUSEA/VOMITING. TODAY, HE IS ALERT AND ORIENTED, LYING IN BED ON MORNING ROUNDS. HE CONTINUES WITH COMPLAINTS OF GENERALIZED WEAKNESS AND BILATERAL LOWER EXTREMITY PAIN AND WEAKNESS. PAIN IS WORSE IN LEFT KNEE. THERE CONTINUES TO BE SWELLING OF THE LEFT KNEE. SWELLING AND ERYTHEMA HAS SLIGHTLY IMPROVED SINCE YESTERDAY. HE ALSO ADMITS TO MILD SHORTNESS OF BREATH. HE DENIES NAUSEA THIS MORNING. ON EXAMINATION, HEART IS REGULAR IN RATE AND RHYTHM. BILATERAL LUNGS ARE NOTED TO HAVE DIMINISHED LUNG SOUNDS THROUGHOUT. ABDOMEN IS ROUND, SOFT, AND NON-TENDER WITH NORMAL BOWEL SOUNDS NOTED IN ALL QUADRANTS. LEFT KNEE NOTED WITH ERYTHEMA AND EDEMA. HIS VITALS THIS MORNING ARE: 98.5-69-18-97%-158/70. LABS WERE OBTAINED. ABNORMAL LAB VALUES INCLUDE THE FOLLOWING: RBC 3.16, HGB 10.4, HCT 29.5, PLT COUNT 111, SODIUM 147, POTASSIUM 3.1, CARBON DIOXIDE 110, BUN 63, CREATININE 2.48, GLUCOSE 241, CALCIUM 7.9, TOTAL BILI 1.10, AST 58, ALK PHOS 165, BNP 1460, TOTAL PROTEIN 6.0, ALBUMIN 1.7. BLOOD, STOOL, AND URINE CULTURES ARE PENDING. PRELIMINARY BLOOD CULTURES REVEALED: GRAM POSITIVE COCCI. VENOUS DOPPLERS WERE NEGATIVE. CHEST XRAY OBTAINED AND REVEALED: Cardiomegaly without congestive heart failure. HE IS CURRENTLY RECEIVING NORMAL SALINE WITH 2 AMPS OF BICARB AT 150 ML/HR, VANCOMYCIN 1.25G IV DAILY, ZOSYN 3.375G IV TID, LEVAQUIN 250MG IV Q48H, HUMULIN R SLIDING SCALE, OTBS ACHS, PEPCID 20MG IV BID, PROTONIX 40MG IV BID, AND HIS HOME MEDICATIONS OF ECOTRIN 81MG, XARELTO 10MG PO DAILY, LIPITOR, CARDIZEM, DILAUDID, SYNTHROID, HEMOCYTE PLUS, AND ZOCOR WERE RESUMED. WE WILL ADMINISTER LASIX 20MG IV X 1 DOSE. WE WILL ALSO START ALBUMIN 25% IV DAILY. OTHERWISE, WE WILL FOLLOW UP WITH AM LABS AND CONTINUE TO MONITOR. TIME SPENT ON CLINICAL ASSESSMENT, REVIEWING LABS AND IMAGING, DECISION MAKING, AND DOCUMENTATION WAS GREATER THAN 45 MINUTES. - Past Medical Family Social History Past Med/Fam/Surg Hx: No changes since H&P Allergies: Allergies pseudoephedrine Allergy (Verified 11/23/20 17:33) - Review of Systems ROS: No change since H&P - Vital Signs and I&O's Vital Signs: Temperature 98.5 F Pulse Rate [Brachial] 69 Respiratory Rate 18 Blood Pressure [Left Arm] 158/70 O2 Sat by Pulse Oximetry 97 Intake and Output: Intake & Output 11/24/20 11/25/20 11/26/20 11/27/20 11:59 11:59 11:59 11:59 Intake Total 1690 / 1690 3052 / 3052 5361 / 5361 5379 / 5379 Output Total 100 / 100 800 / 800 2150 / 2150 5425 / 5425 Balance 1590 / 1590 2252 / 2252 3211 / 3211 -46 / -46 - Physical Exam Oriented: Normal Eyes: Normal Ear: Normal Nose: Normal Throat: Normal Respiratory: Generalized, Diminished Cardiovascular: Normal : Normal Auscultation: Bowel Sounds: Normal Tenderness: Normal Skin: Red, Hot Musculoskeletal: Right, Left, Knee, Swelling, Tender Psychiatric: Normal Mood Description: Calm Affect: Normal Speech Pattern: Clear, Appropriate - Laboratory and Diagnostics Result Diagrams: 11/27/20 04:29 11/27/20 04:29 Labs: 11/23/20 16:25 Blood Blood Culture - Preliminary 11/23/20 16:15 Blood Blood Culture - Preliminary 11/24/20 07:00 Stool Stool Culture - Final 11/24/20 07:00 Stool - Final 11/24/20 14:30 Urine,Clean Catch Urine Culture - Final Laboratory WBC 7.7 X10^3/uL (3.6-10.0) 11/27/20 04:29 RBC 3.16 X10^6/uL (4.7-6.0) L 11/27/20 04:29 Hgb 10.4 g/dL (13.5-18.0) L 11/27/20 04:29 Hct 29.5 % (42.0-54.0) L 11/27/20 04:29 MCV 93.2 fL (80.0-100.0) 11/27/20 04:29 MCH 32.9 pg (27.0-34.0) 11/27/20 04:29 MCHC 35.3 g/dL (33.0-35.0) H 11/27/20 04:29 RDW 15.6 % (11.6-16.5) 11/27/20 04:29 Plt Count 111 X10^3/uL (150.0-450.0) L 11/27/20 04:29 Plt Count Comment Decreased (ADEQUATE) 11/27/20 04:29 MPV 9.9 fL (7.4-11.0) 11/27/20 04:29 Neut % (Auto) 80.5 % (42.0-75.0) H 11/27/20 04:29 Lymph % (Auto) 6.9 % (21.0-51.0) L 11/27/20 04:29 [place] % (Auto) 12.2 % (0.0-13.0) 11/27/20 04:29 Eos % (Auto) 0.2 % (0.9-2.9) L 11/27/20 04:29 Baso % (Auto) 0.2 % (0.2-1.0) 11/27/20 04:29 Neut # (Auto) 6.2 x10^3/uL (2.2-4.8) H 11/27/20 04:29 Lymph # (Auto) 0.5 X10^3/uL (1.3-2.9) L 11/27/20 04:29 [place] # (Auto) 0.9 x10^3/uL (0.3-0.8) H 11/27/20 04:29 Eos # (Auto) 0.0 x10^3/uL (0.0-0.2) 11/27/20 04:29 Baso # (Auto) 0.0 X10^3/uL (0.0-0.1) 11/27/20 04:29 Absolute Nucleated RBC 0.0 /100WBC 11/27/20 04:29 Total Counted 100 11/27/20 04:29 Neutrophils % (Manual) 78 % (39-76) H 11/27/20 04:29 Band Neutrophils % 10 % (0-10) 11/25/20 04:25 Lymphocytes % (Manual) 16 % (13-43) 11/27/20 04:29 Monocytes % (Manual) 8 % (4-9) 11/27/20 04:29 Plt Morphology Comment Normal (NORMAL) 11/27/20 04:29 RBC Morphology Normal (NORMAL) 11/27/20 04:29 D-Dimer 5.55 ug/ml (0.0-0.57) H* 11/24/20 09:16 Sodium 147 mmol/L (136-145) H 11/27/20 04:29 Corrected Sodium 150 mmol/L (136-145) H 11/27/20 04:29 Potassium 3.1 mmol/L (3.5-5.1) L 11/27/20 04:29 Chloride 110 mmol/L (98-107) H 11/27/20 04:29 Carbon Dioxide 27.1 mmol/L (21-32) 11/27/20 04:29 BUN 63 mg/dL (7-18) H 11/27/20 04:29 Creatinine 2.48 mg/dL (0.70-1.30) H 11/27/20 04:29 Est GFR (MDRD) Af Amer 33 (>60) L 11/27/20 04:29 Est GFR (MDRD) Non-Af 27 (>60) L 11/27/20 04:29 Glucose 241 mg/dL (65-99) H 11/27/20 04:29 POC Glucose (mg/dL) 225 mg/dL (65-99) H 11/27/20 05:14 Lactic Acid 2.5 mmol/L (0.4-2.0) H 11/24/20 05:57 Uric Acid 7.9 mg/dL (3.5-7.2) H 11/25/20 04:25 Calcium 7.9 mg/dL (8.5-10.1) L 11/27/20 04:29 Corrected Calcium 9.7 mg/dL (8.5-10.1) 11/27/20 04:29 Magnesium 2.6 mg/dL (1.7-2.9) 11/27/20 04:29 Total Bilirubin 1.10 mg/dL (0.2-1.0) H 11/27/20 04:29 AST 58 Units/L (15-37) H 11/27/20 04:29 ALT 25 Units/L (12-78) 11/27/20 04:29 Alkaline Phosphatase 165 Units/L (46-116) H 11/27/20 04:29 Creatine Kinase 56 Units/L (39-308) 11/23/20 16:15 CK-MB (CK-2) < 1.0 ng/mL (0-4.0) 11/23/20 16:15 CK/CKMB % Calc 1.8 % (<4) 11/23/20 16:15 Troponin I < 0.02 ng/mL (0-1.5) 11/23/20 16:15 B-Natriuretic Peptide 1460 pg/mL (0-79) H* 11/27/20 04:29 Total Protein 6.0 g/dL (6.4-8.2) L 11/27/20 04:29 Albumin 1.7 g/dL (3.4-5.0) L 11/27/20 04:29 Globulin 4.3 g/dL (2.5-4.5) 11/27/20 04:29 Albumin/Globulin Ratio 0.4 Ratio (1.1-2.1) L 11/27/20 04:29 Specimen Type Catherized urine 11/25/20 10:20 Urine Color Yellow (YELLOW) 11/25/20 10:20 Urine Appearance Clear (CLEAR) 11/25/20 10:20 Urine pH 5.0 (5.0 - 8.0) 11/25/20 10:20 Ur Specific [place] 1.020 (1.000-1.030) 11/25/20 10:20 Urine Protein 2+ (NEGATIVE) 11/25/20 10:20 Urine Glucose (UA) Negative (NEGATIVE) 11/25/20 10:20 Urine Ketones Negative (NEGATIVE) 11/25/20 10:20 Urine Occult Blood 2+ (NEGATIVE) 11/25/20 10:20 Urine Nitrite Negative (NEGATIVE) 11/25/20 10:20 Urine Bilirubin Negative (NEGATIVE) 11/25/20 10:20 Urine Urobilinogen Normal (NORMAL) 11/25/20 10:20 Ur Leukocyte Esterase Negative (NEGATIVE) 11/25/20 10:20 Urine RBC 3-5 /HPF (0-3) A 11/25/20 10:20 Urine WBC 0-2 /HPF (0-5) 11/25/20 10:20 Ur Squamous Epith Cells Few /HPF (NEGATIVE) 11/25/20 10:20 Amorphous Sediment 2+ /HPF (NEGATIVE) 11/25/20 10:20 Urine Bacteria Trace /HPF (NEGATIVE) 11/25/20 10:20 Ur Culture Indicated? No/not indicated 11/25/20 10:20 Stool Description 15g unformed brown 11/24/20 07:00 Stl Occult Blood (IFOB) Positive (NEGATIVE) A 11/24/20 07:00 Stool for White Cells Positive (NEGATIVE) A 11/24/20 07:00 Stl C. diff Tox B Gene Negative (NEGATIVE) 11/24/20 07:00 Stl C. diff [id number] Presumptive negative (NEGATIVE) 11/24/20 07:00 Vancomycin Trough 5.1 ug/mL (15-20) L 11/26/20 16:06 Random Vancomycin 12.8 ug/mL 11/27/20 04:29 - Plan (1) Acute renal failure Status: Acute Qualifiers: Acute renal failure type: unspecified Qualified Code(s): N17.9 - Acute kidney failure, unspecified Plan: NORMAL SALINE WITH 2 AMPS SODIUM BICARB AT 150 ML/HR, ZOSYN 3.375G IV TID, LEVAQUIN 250MG IV Q48H, VANCOMYCIN, PEPCID IV BID, PROTONIX IV BID, HUMULIN R SLIDING SCALE, OTBS ACHS, XARELTO 10MG PO DAILY, AND HIS HOME MEDICATIONS OF ECOTRIN 81MG, LIPITOR, CARDIZEM, DILAUDID, SYNTHROID, HEMOCYTE PLUS, AND ZOCOR WERE RESUMED. (2) Sepsis Status: Acute Qualifiers: Sepsis type: sepsis due to unspecified organism Sepsis acute organ dysfunction status: with acute organ dysfunction Severe sepsis acute organ dysfunction type: acute renal failure Acute renal failure type: unspecified Severe sepsis shock status: unspecified Qualified Code(s): A41.9 - Sepsis, unspecified organism; R65.20 - Severe sepsis without septic shock; N17.9 - Acute kidney failure, unspecified (3) Lower extremity cellulitis Status: Acute Qualifiers: Laterality: left Qualified Code(s): L03.116 - Cellulitis of left lower limb (4) Dehydration Status: Acute (5) Hypokalemia Status: Acute (6) Nausea and vomiting Status: Acute Qualifiers: Vomiting type: unspecified Vomiting Intractability: non-intractable Qualified Code(s): R11.2 - Nausea with vomiting, unspecified (7) Generalized weakness Status: Acute
[2020-11-27] MEDS: PEPCID 20 MG IV PREMIX* 20 MG/50 ML BAG IV SCH (13:32)
[2020-11-27] MEDS: LEVAQUIN PREMIX IV 250 MG 250 MG/50 ML BAG IV SCH (14:10)
[2020-11-27] MEDS: ALBUMIN HUMAN 25%- 100 ML 100 ML IV SCH (14:10)
[2020-11-27] MEDS: ZOCOR TAB 40 MG PO SCH ×2 (22:05→22:26)
[2020-11-27] MEDS: SNACK - Diabetic Appropriate PO SCH (22:10)
[2020-11-27] MEDS: LIPITOR TAB 40 MG PO SCH (22:25)
[2020-11-28] MEDS ORDERED: CATAPRES TAB 0.1 MG PO ONE (01:21)
[2020-11-28] MEDS ORDERED: CATAPRES TAB 0.1 MG ONE (01:25)
[2020-11-28 05:39] LABS: BASOPHILS % (AUTO) 0.2 % (0.2-1.0); EOSINOPHILS # (AUTO) 0.1 x10^3/uL (0.0-0.2); EOSINOPHILS % (AUTO) 0.8 % (0.9-2.9); HEMATOCRIT 28.4 % (42.0-54.0); LYMPHOCYTES # (AUTO) 0.6 X10^3/uL (1.3-2.9); LYMPHOCYTES % (AUTO) 9.5 % (21.0-51.0); MEAN CORPUSCULAR HEMOGLOBIN 32.7 pg (27.0-34.0); MEAN CORPUSCULAR HGB CONC 35.2 g/dL (33.0-35.0); MEAN CORPUSCULAR VOLUME 92.9 fL (80.0-100.0); MEAN PLATELET VOLUME 9.4 fL (7.4-11.0); MONOCYTES # (AUTO) 0.7 x10^3/uL (0.3-0.8); MONOCYTES % (AUTO) 11.4 % (0.0-13.0); NEUTROPHILS # (AUTO) 5.1 x10^3/uL (2.2-4.8); NEUTROPHILS % (AUTO) 78.1 % (42.0-75.0); PLATELET COUNT 121 X10^3/uL (150.0-450.0); RED BLOOD COUNT 3.06 X10^6/uL (4.7-6.0); RED CELL DISTRIBUTION WIDTH 15.4 % (11.6-16.5); WHITE BLOOD COUNT 6.5 X10^3/uL (3.6-10.0)
[2020-11-28] MEDS: SYNTHROID 50 mcg TAB PO SCH (05:46)
[2020-11-28] MEDS: HumuLIN R SUBCUT PRN ×3 (05:47→17:34)
[2020-11-28 06:01] LABS: BAND NEUTROPHILS % 1 % (0-10)
[2020-11-28 06:02] LABS: PLATELET MORPHOLOGY COMMENT NORMAL (NORMAL)
[2020-11-28] MEDS: NS 1000 ML 1,000 ML with SODIUM BICARBONATE 8.4% INJ ADULT 100 ML IV SCH ×2 (06:06)
[2020-11-28 06:12] LABS: ALBUMIN 1.9 g/dL (3.4-5.0); CALCIUM 7.8 mg/dL (8.5-10.1); CARBON DIOXIDE 31.6 mmol/L (21-32); COR CA(FOR HYPOALB) 9.5 mg/dL (8.5-10.1); CREATININE 1.7 mg/dL (0.70-1.30)
[2020-11-28] MEDS ORDERED: K-RIDER 10 MEQ/NS 100 ML 10 MEQ/100 ML BAG IV PRN (06:31)
[2020-11-28] MEDS ORDERED: POTASSIUM CHL 60 MEQ/NS 0.45% 500 ML IV PRN (06:31)
[2020-11-28] MEDS ORDERED: POTASSIUM CHLORIDE LIQ 20 MEQ UDC PO PRN (06:31)
[2020-11-28] MEDS ORDERED: K-DUR TAB 20 MEQ PO PRN (06:31)
[2020-11-28] MEDS ORDERED: MICRO K EXTEN CAP 10 MEQ PO PRN (06:31)
[2020-11-28] MEDS ORDERED: POTASSIUM CHL 40 MEQ/NS 0.45% 500 ML IV PRN (06:31)
[2020-11-28] MEDS ORDERED: KLOR-CON PO PRN (06:31)
--- NOTE | 2020-11-28 07:35 | RAD ---
HISTORYShortness of breathSTUDYChest AP tacerqhuIBRSITSJFE94/15/2021FINDINGSPatient is status post median sternotomy. The heart is mildly enl arged. No congestive heart failure is noted. No definite acute alveolar infiltrates or pleural effusi ons are identified. Bony thorax is unremarkable.IMPRESSIONCardiomegaly without congestive heart failu Mode definite infiltratesElectronically signed by: JUSTINE SOUSA (Nov 28, 2020 07:33:21)
[2020-11-28] MEDS: XARELTO PO SCH (09:15)
[2020-11-28] MEDS: ALBUMIN HUMAN 25%- 100 ML 100 ML IV SCH (09:15)
[2020-11-28] MEDS: CARDIZEM CD 240 MG 24-HR PO SCH ×2 (09:15→22:11)
[2020-11-28] MEDS: PROTONIX INJ 40 MG VIAL IVP SCH ×2 (09:15→22:13)
[2020-11-28] MEDS: ASPIRIN EC 81 MG PO SCH (09:15)
[2020-11-28] MEDS: VANCOMYCIN IV *PREMIX 1 G/200 ML BAG 1 G/200 ML PIGGYBACK IV SCH ×2 (09:15→21:28)
[2020-11-28] MEDS: VITAMIN D3 125 mcg (5,000 UNITS) PO SCH (09:15)
[2020-11-28] MEDS: HEMOCYTE-PLUS PO SCH (09:15)
[2020-11-28] MEDS ORDERED: ZOSYN VIAL 3.375 GRAMS IV ONE (11:15)
[2020-11-28] MEDS: PEPCID 20 MG IV PREMIX* 20 MG/50 ML BAG IV SCH (12:09)
[2020-11-28] MEDS: ZOSYN VIAL 3.375 GRAMS 3.375 G in NS 50 ML IV + SPIKE MINIBAG* 50 ML IV SCH ×2 (12:09→22:10)
--- NOTE | 2020-11-28 14:28 | MRI ---
HISTORYSEVERE LOWER EXTREMITY WEAKNESS; 20CC MULTIHANCESTUDYLUMBAR W W/O CONCOMPARISONNoneTECHNIQUEMultiplanar multisequence MRI of the lumbar spine was obtained utilizing standard departmental protocol without and with IV contrast.FINDINGSNormal lumbar spinal alignment. Marrow signal is benign. No acute fracture. The conus terminates normally. No abnormal postcontrast enhancement.No significant soft tissue abnormality.T12 -- L1: No significant spinal canal or neural foraminal stenosis.L1 -- L2: No significant spinal canal or neural foraminal stenosis.L2 -- L3: Broad-based disc bulge and ligamentum flavum thickening with moderate spinal canal stenosis. No significant neural foraminal narrowing.L3 -- L4: Broad-based disc bulge and ligamentum flavum thickening with right paracentral disc protrusion and moderate spinal canal stenosis. No significant neural foraminal narrowing.L4 -- L5: Broad-based disc bulge and ligamentum flavum thickening without significant spinal canal or neural foraminal stenosis.L5 -- S1:Broad-based disc bulge without significant spinal canal or neural foraminal stenosis.IMPRESSIONMultilevel lumbar disc disease with right paracentral disc protrusion and moderate spinal canal stenosis at L3-L4.Electronically signed by: JUSTINE SOUSA (Nov 28, 2020 14:26:59)
[2020-11-28] MEDS: APRESOLINE TAB 25 MG PO SCH ×2 (14:46→22:11)
[2020-11-28] MEDS: NS + KCL 20 MEQ/L 1,000 ML IV SCH ×2 (14:46→17:34)
[2020-11-28] MEDS ORDERED: PHARMACY COMMENT IV NR (20:30)
[2020-11-28 20:54] LABS: CREATININE 1.23 mg/dL (0.70-1.30)
[2020-11-28 21:00] LABS: VANCOMYCIN,TROUGH 22.2 ug/mL (15-20)
[2020-11-28] MEDS: COZAAR PO SCH (22:10)
[2020-11-28] MEDS: FLOMAX PO SCH (22:12)
[2020-11-28] MEDS: LIPITOR TAB 40 MG PO SCH (22:12)
[2020-11-28] MEDS: SNACK - Diabetic Appropriate PO SCH (22:14)
[2020-11-29] MEDS: NS + KCL 20 MEQ/L 1,000 ML IV SCH ×4 (00:05→09:08)
[2020-11-29 05:22] LABS: BASOPHILS % (AUTO) 0.3 % (0.2-1.0); EOSINOPHILS # (AUTO) 0.1 x10^3/uL (0.0-0.2); EOSINOPHILS % (AUTO) 0.9 % (0.9-2.9); HEMATOCRIT 28.7 % (42.0-54.0); HEMOGLOBIN 10.2 g/dL (13.5-18.0); LYMPHOCYTES # (AUTO) 0.6 X10^3/uL (1.3-2.9); LYMPHOCYTES % (AUTO) 9.4 % (21.0-51.0); MEAN CORPUSCULAR HEMOGLOBIN 32.8 pg (27.0-34.0); MEAN CORPUSCULAR HGB CONC 35.4 g/dL (33.0-35.0); MEAN CORPUSCULAR VOLUME 92.6 fL (80.0-100.0); MEAN PLATELET VOLUME 9.4 fL (7.4-11.0); MONOCYTES # (AUTO) 0.6 x10^3/uL (0.3-0.8); NEUTROPHILS # (AUTO) 5.1 x10^3/uL (2.2-4.8); NEUTROPHILS % (AUTO) 80.4 % (42.0-75.0); PLATELET COUNT 115 X10^3/uL (150.0-450.0); RED CELL DISTRIBUTION WIDTH 15.1 % (11.6-16.5); WHITE BLOOD COUNT 6.4 X10^3/uL (3.6-10.0)
--- NOTE | 2020-11-29 05:35 | RAD ---
PROCEDURE: Chest X-ray 1 View .HISTORY: Dyspnea.TECHNIQUE: AP view.COMPARISON: 11/28/2020.TECHNICAL QUALITY: Satisfactory .FINDINGS:Normal size heart .Mediastinum and hilar regions show no masses or lymphadenopathy .Normal central vascularity .Mild consolidation right base could represent pneumonia. No pleural fluid, mass, or pneumothorax.No acute bony abnormality. Previous sternotomy.IMPRESSION:Possible right basilar pneumonia and follow-up films may be helpful.Electronically signed by: Conrad Castillo (Nov 29, 2020 05:33:37)
[2020-11-29 05:39] LABS: ALANINE AMINOTRANSFERASE 15 Units/L (12-78); ALBUMIN 2.1 g/dL (3.4-5.0); ALKALINE PHOSPHATASE 119 Units/L (46-116); ASPARTATE AMINO TRANSFERASE 31 Units/L (15-37); BLOOD UREA NITROGEN 25 mg/dL (7-18); CALCIUM 8.1 mg/dL (8.5-10.1); CHLORIDE 105 mmol/L (98-107); COR CA(FOR HYPOALB) 9.6 mg/dL (8.5-10.1); COR NA(FOR HYPERGLY) 144 mmol/L (136-145); SODIUM 142 mmol/L (136-145); TOTAL PROTEIN 6.1 g/dL (6.4-8.2); eGFR NON BLACK RACES 53 (>60)
[2020-11-29] MEDS ORDERED: VANCOMYCIN IV *PREMIX 1 G/200 ML BAG 1 G/200 ML PIGGYBACK IV SCH (06:00)
[2020-11-29] MEDS: SYNTHROID 50 mcg TAB PO SCH (06:36)
[2020-11-29] MEDS: APRESOLINE TAB 25 MG PO SCH ×3 (06:36→21:50)
[2020-11-29] MEDS: HumuLIN R SUBCUT PRN ×4 (06:41→21:46)
[2020-11-29] MEDS ORDERED: PHARMACY COMMENT IV NR (08:30)
[2020-11-29] MEDS: ZOSYN VIAL 3.375 GRAMS 3.375 G in NS 50 ML IV + SPIKE MINIBAG* 50 ML IV SCH ×2 (08:49→21:48)
[2020-11-29] MEDS: LEVAQUIN PREMIX IV 500 MG 500 MG/100 ML BAG IV SCH (08:50)
[2020-11-29] MEDS: PEPCID 20 MG IV PREMIX* 20 MG/50 ML BAG IV SCH (08:50)
[2020-11-29] MEDS: PROTONIX INJ 40 MG VIAL IVP SCH ×2 (08:50→21:49)
[2020-11-29] MEDS: VITAMIN D3 125 mcg (5,000 UNITS) PO SCH (08:51)
[2020-11-29] MEDS: HEMOCYTE-PLUS PO SCH (08:51)
[2020-11-29] MEDS: ALBUMIN HUMAN 25%- 100 ML 100 ML IV SCH (08:51)
[2020-11-29] MEDS: XARELTO PO SCH (08:52)
[2020-11-29] MEDS: ASPIRIN EC 81 MG PO SCH (08:52)
[2020-11-29] MEDS: CARDIZEM CD 240 MG 24-HR PO SCH ×2 (08:52→21:46)
[2020-11-29] MEDS: NS + KCL 40 MEQ/L 1,000 ML IV SCH (12:41)
--- NOTE | 2020-11-29 16:47 | PCM.PROG ---
Progress Note Progress Note for Day of Date of Exam: 11/29/20 Subjective Subjective: Patient seen at bedside, no acute events. Patient states he still has leg weakness. He was not able to work with PT as much yesterday. He states its slowly improving. He reports normal appetite. He has been having dry cough. He is currently being treated for ARF, dehydration, left lower ext cellulitis and generalized weakness. Patient's pre-benitez blood cultures growing Gm + cocci. Labs: WBC 6.4 Hgb 10.2 Plt 115 Na: 142 K: 2.9 BUN/Cr: 25/1.40 Glucose 211 BNP 935 Echo: EF 52% CXR: right sided pneumonia MRI lumbar: multilevel DDD 11/23/20: Blood Cx x 2 Strep pyogenes Plan: DC vancomycin. Continue IV antibiotics including Levaquin and Zosyn. Will repeat blood cultures. Will decrease IVF to 75cc/hr, NS + KCl 40meQ and also give additional 40meQ. Repeat K level later his afternoon. Will check Mg. Continue nebs, pulmicort and IS. Continue PT/OT as tolerated. Monitor AM labs and imaging. Past Medical Family Social History Past Med/Fam/Surg Hx: No changes since H&P Allergies: Allergies pseudoephedrine Allergy (Verified 11/23/20 17:33) Review of Systems ROS: No change since H&P Vital Signs and I&O's Vital Signs: Temperature 97.9 F Pulse Rate [Brachial] 80 Respiratory Rate 18 Blood Pressure [Left Arm] 175/82 O2 Sat by Pulse Oximetry 97 Intake and Output: Intake & Output 11/26/20 11/27/20 11/28/20 11/29/20 23:59 23:59 23:59 23:59 Intake Total 4303 / 4303 5592 / 5592 3160 / 3160 350 / 350 Output Total 4675 / 4675 6175 / 6175 3925 / 3925 1100 / 1100 Balance -372 / -372 -583 / -583 -765 / -765 -750 / -750 Physical Exam Oriented: Normal Eyes: Normal Ear: Normal Nose: Normal Throat: Normal Respiratory: Generalized, Diminished and R[place] Cardiovascular: Normal and Edema Auscultation: Bowel Sounds: Normal Tenderness: Normal Skin: Normal Musculoskeletal: Right, Left, Knee, Swelling and Tender Psychiatric: Normal Mood Description: Calm Affect: Normal Speech Pattern: Clear and Appropriate Laboratory and Diagnostics Result Diagrams: 11/29/20 04:53 11/29/20 04:53 Labs: 11/23/20 16:25 Blood Blood Culture - Final 11/23/20 16:15 Blood Blood Culture - Final Strep Pyogenes (Grp A) 11/24/20 07:00 Stool Stool Culture - Final 11/24/20 07:00 Stool - Final 11/24/20 14:30 Urine,Clean Catch Urine Culture - Final Laboratory WBC 6.4 X10^3/uL (3.6-10.0) 11/29/20 04:53 RBC 3.10 X10^6/uL (4.7-6.0) L 11/29/20 04:53 Hgb 10.2 g/dL (13.5-18.0) L 11/29/20 04:53 Hct 28.7 % (42.0-54.0) L 11/29/20 04:53 MCV 92.6 fL (80.0-100.0) 11/29/20 04:53 MCH 32.8 pg (27.0-34.0) 11/29/20 04:53 MCHC 35.4 g/dL (33.0-35.0) H 11/29/20 04:53 RDW 15.1 % (11.6-16.5) 11/29/20 04:53 Plt Count 115 X10^3/uL (150.0-450.0) L 11/29/20 04:53 Plt Count Comment Decreased (ADEQUATE) 11/28/20 05:13 MPV 9.4 fL (7.4-11.0) 11/29/20 04:53 Neut % (Auto) 80.4 % (42.0-75.0) H 11/29/20 04:53 Lymph % (Auto) 9.4 % (21.0-51.0) L 11/29/20 04:53 [place] % (Auto) 9.0 % (0.0-13.0) 11/29/20 04:53 Eos % (Auto) 0.9 % (0.9-2.9) 11/29/20 04:53 Baso % (Auto) 0.3 % (0.2-1.0) 11/29/20 04:53 Neut # (Auto) 5.1 x10^3/uL (2.2-4.8) H 11/29/20 04:53 Lymph # (Auto) 0.6 X10^3/uL (1.3-2.9) L 11/29/20 04:53 [place] # (Auto) 0.6 x10^3/uL (0.3-0.8) 11/29/20 04:53 Eos # (Auto) 0.1 x10^3/uL (0.0-0.2) 11/29/20 04:53 Baso # (Auto) 0.0 X10^3/uL (0.0-0.1) 11/29/20 04:53 Absolute Nucleated RBC 0.0 /100WBC 11/29/20 04:53 Total Counted 100 11/28/20 05:13 Neutrophils % (Manual) 79 % (39-76) H 11/28/20 05:13 Band Neutrophils % 1 % (0-10) 11/28/20 05:13 Lymphocytes % (Manual) 11 % (13-43) L 11/28/20 05:13 Monocytes % (Manual) 9 % (4-9) 11/28/20 05:13 Plt Morphology Comment Normal (NORMAL) 11/28/20 05:13 RBC Morphology Normal (NORMAL) 11/28/20 05:13 D-Dimer 5.55 ug/ml (0.0-0.57) H* 11/24/20 09:16 Sodium 142 mmol/L (136-145) 11/29/20 04:53 Corrected Sodium 144 mmol/L (136-145) 11/29/20 04:53 Potassium 2.9 mmol/L (3.5-5.1) L* 11/29/20 04:53 Chloride 105 mmol/L (98-107) 11/29/20 04:53 Carbon Dioxide 30.0 mmol/L (21-32) 11/29/20 04:53 BUN 25 mg/dL (7-18) H 11/29/20 04:53 Creatinine 1.40 mg/dL (0.70-1.30) H 11/29/20 04:53 Est GFR (MDRD) Af Amer > 60 (>60) 11/29/20 04:53 Est GFR (MDRD) Non-Af 53 (>60) L 11/29/20 04:53 Glucose 197 mg/dL (65-99) H 11/29/20 04:53 POC Glucose (mg/dL) 214 mg/dL (65-99) H 11/29/20 11:48 Lactic Acid 2.5 mmol/L (0.4-2.0) H 11/24/20 05:57 Uric Acid 7.9 mg/dL (3.5-7.2) H 11/25/20 04:25 Calcium 8.1 mg/dL (8.5-10.1) L 11/29/20 04:53 Corrected Calcium 9.6 mg/dL (8.5-10.1) 11/29/20 04:53 Magnesium 2.3 mg/dL (1.7-2.9) 11/28/20 05:13 Total Bilirubin 1.30 mg/dL (0.2-1.0) H 11/29/20 04:53 AST 31 Units/L (15-37) 11/29/20 04:53 ALT 15 Units/L (12-78) 11/29/20 04:53 Alkaline Phosphatase 119 Units/L (46-116) H 11/29/20 04:53 Creatine Kinase 56 Units/L (39-308) 11/23/20 16:15 CK-MB (CK-2) < 1.0 ng/mL (0-4.0) 11/23/20 16:15 CK/CKMB % Calc 1.8 % (<4) 11/23/20 16:15 Troponin I < 0.02 ng/mL (0-1.5) 11/23/20 16:15 B-Natriuretic Peptide 934 pg/mL (0-79) H* 11/29/20 04:53 Total Protein 6.1 g/dL (6.4-8.2) L 11/29/20 04:53 Albumin 2.1 g/dL (3.4-5.0) L 11/29/20 04:53 Globulin 4.0 g/dL (2.5-4.5) 11/29/20 04:53 Albumin/Globulin Ratio 0.5 Ratio (1.1-2.1) L 11/29/20 04:53 Specimen Type Catherized urine 11/25/20 10:20 Urine Color Yellow (YELLOW) 11/25/20 10:20 Urine Appearance Clear (CLEAR) 11/25/20 10:20 Urine pH 5.0 (5.0 - 8.0) 11/25/20 10:20 Ur Specific [place] 1.020 (1.000-1.030) 11/25/20 10:20 Urine Protein 2+ (NEGATIVE) 11/25/20 10:20 Urine Glucose (UA) Negative (NEGATIVE) 11/25/20 10:20 Urine Ketones Negative (NEGATIVE) 11/25/20 10:20 Urine Occult Blood 2+ (NEGATIVE) 11/25/20 10:20 Urine Nitrite Negative (NEGATIVE) 11/25/20 10:20 Urine Bilirubin Negative (NEGATIVE) 11/25/20 10:20 Urine Urobilinogen Normal (NORMAL) 11/25/20 10:20 Ur Leukocyte Esterase Negative (NEGATIVE) 11/25/20 10:20 Urine RBC 3-5 /HPF (0-3) A 11/25/20 10:20 Urine WBC 0-2 /HPF (0-5) 11/25/20 10:20 Ur Squamous Epith Cells Few /HPF (NEGATIVE) 11/25/20 10:20 Amorphous Sediment 2+ /HPF (NEGATIVE) 11/25/20 10:20 Urine Bacteria Trace /HPF (NEGATIVE) 11/25/20 10:20 Ur Culture Indicated? No/not indicated 11/25/20 10:20 Stool Description 30 grams loose dark 11/27/20 14:00 Stl Occult Blood (IFOB) Negative (NEGATIVE) 11/27/20 14:00 Stool for White Cells Positive (NEGATIVE) A 11/24/20 07:00 Stl C. diff Tox B Gene Negative (NEGATIVE) 11/24/20 07:00 Stl C. diff [id number] Presumptive negative (NEGATIVE) 11/24/20 07:00 Vancomycin Trough 22.2 ug/mL (15-20) H* 11/28/20 20:06 Random Vancomycin 12.8 ug/mL 11/27/20 04:29 Plan (1) Pneumonia: Status: Acute Qualifiers: Pneumonia type: due to unspecified organism Laterality: right Lung location: unspecified part of lung Qualified Code(s): J18.9 - Pneumonia, unspecified organism (2) Generalized weakness: Status: Acute (3) Bacteremia: Status: Acute (4) Acute renal failure: Status: Acute Qualifiers: Acute renal failure type: unspecified Qualified Code(s): N17.9 - Acute kidney failure, unspecified Plan: NORMAL SALINE WITH 2 AMPS SODIUM BICARB AT 150 ML/HR, ZOSYN 3.375G IV TID, LEVAQUIN 250MG IV Q48H, VANCOMYCIN, PEPCID IV BID, PROTONIX IV BID, HUMULIN R SLIDING SCALE, OTBS ACHS, XARELTO 10MG PO DAILY, AND HIS HOME MEDICATIONS OF ECOTRIN 81MG, LIPITOR, CARDIZEM, DILAUDID, SYNTHROID, HEMOCYTE PLUS, AND ZOCOR WERE RESUMED. (5) Sepsis: Status: Acute Qualifiers: Acute renal failure type: unspecified Sepsis acute organ dysfunction status: with acute organ dysfunction Sepsis type: sepsis due to unspecified organism Severe sepsis acute organ dysfunction type: acute renal failure Severe sepsis shock status: unspecified Qualified Code(s): A41.9 - Sepsis, unspecified organism; R65.20 - Severe sepsis without septic shock; N17.9 - Acute kidney failure, unspecified (6) Lower extremity cellulitis: Status: Acute Qualifiers: Laterality: left Qualified Code(s): L03.116 - Cellulitis of left lower limb (7) Dehydration: Status: Acute (8) Hypokalemia: Status: Acute (9) Nausea and vomiting: Status: Acute Qualifiers: Vomiting Intractability: non-intractable Vomiting type: unspecified Qualified Code(s): R11.2 - Nausea with vomiting, unspecified
[2020-11-29] MEDS: K-DUR TAB 20 MEQ PO SCH (21:44)
[2020-11-29] MEDS: FLOMAX PO SCH (21:45)
[2020-11-29] MEDS: COZAAR PO SCH (21:46)
[2020-11-29] MEDS: LIPITOR TAB 40 MG PO SCH (21:46)
[2020-11-29] MEDS: SNACK - Diabetic Appropriate PO SCH (21:49)
[2020-11-29] MEDS: DUONEB 0.5 MG/3 MG (3 mL) NEB SCH (23:45)
[2020-11-29] MEDS ORDERED: ATIVAN INJ 2 MG VIAL ONE (23:56)
[2020-11-29] MEDS ORDERED: ATIVAN INJ 2 MG VIAL IVP ONE (23:57)
[2020-11-30] MEDS ORDERED: DUONEB 0.5 MG/3 MG (3 mL) NEB ONE ×2 (00:04→11:42)
[2020-11-30] MEDS: DUONEB 0.5 MG/3 MG (3 mL) NEB SCH ×5 (00:05→20:00)
--- NOTE | 2020-11-30 00:37 | RAD ---
PROCEDURE: Chest X-ray 1 View .HISTORY: Dyspnea.TECHNIQUE: AP view .COMPARISON: 11/29/2020.TECHNICAL QUALITY: Satisfactory .FINDINGS:Unchanged heart size upper limits of normal.Mediastinum and hilar regions show no masses or lymphadenopathy .Normal central vascularity .Increasing consolidation throughout the right lung field consistent with pneumonia. No pleural fluid or pneumothorax. Left lung beverly clear.No acute bony abnormality .IMPRESSION:Increasing pneumonia right lung field.Electronically signed by: Conrad Castillo (Nov 30, 2020 00:34:50)
[2020-11-30] MEDS: NS + KCL 40 MEQ/L 1,000 ML IV SCH ×2 (03:17→14:38)
[2020-11-30 05:38] LABS: BASOPHILS % (AUTO) 0.1 % (0.2-1.0); EOSINOPHILS % (AUTO) 0.2 % (0.9-2.9); HEMATOCRIT 26.9 % (42.0-54.0); HEMOGLOBIN 9.5 g/dL (13.5-18.0); LYMPHOCYTES # (AUTO) 0.5 X10^3/uL (1.3-2.9); LYMPHOCYTES % (AUTO) 7.1 % (21.0-51.0); MEAN CORPUSCULAR HEMOGLOBIN 32.8 pg (27.0-34.0); MEAN CORPUSCULAR HGB CONC 35.4 g/dL (33.0-35.0); MEAN CORPUSCULAR VOLUME 92.8 fL (80.0-100.0); MEAN PLATELET VOLUME 9.6 fL (7.4-11.0); MONOCYTES # (AUTO) 0.5 x10^3/uL (0.3-0.8); MONOCYTES % (AUTO) 7.5 % (0.0-13.0); NEUTROPHILS % (AUTO) 85.1 % (42.0-75.0); PLATELET COUNT 126 X10^3/uL (150.0-450.0); RED CELL DISTRIBUTION WIDTH 14.9 % (11.6-16.5); WHITE BLOOD COUNT 7.1 X10^3/uL (3.6-10.0)
[2020-11-30 05:47] LABS: ALANINE AMINOTRANSFERASE 14 Units/L (12-78); ALBUMIN 2.1 g/dL (3.4-5.0); ALKALINE PHOSPHATASE 105 Units/L (46-116); ASPARTATE AMINO TRANSFERASE 23 Units/L (15-37); BLOOD UREA NITROGEN 21 mg/dL (7-18); CALCIUM 8.1 mg/dL (8.5-10.1); CARBON DIOXIDE 29.5 mmol/L (21-32); CHLORIDE 106 mmol/L (98-107); COR CA(FOR HYPOALB) 9.6 mg/dL (8.5-10.1); COR NA(FOR HYPERGLY) 146 mmol/L (136-145); CREATININE 1.45 mg/dL (0.70-1.30); SODIUM 142 mmol/L (136-145); eGFR NON BLACK RACES 50 (>60)
[2020-11-30] MEDS: APRESOLINE TAB 25 MG PO SCH ×3 (05:55→21:22)
[2020-11-30] MEDS: SYNTHROID 50 mcg TAB PO SCH (05:55)
[2020-11-30] MEDS: HumuLIN R SUBCUT PRN ×4 (06:07→21:29)
[2020-11-30] MEDS: ZOSYN VIAL 3.375 GRAMS 3.375 G in NS 50 ML IV + SPIKE MINIBAG* 50 ML IV SCH ×2 (09:28→21:19)
[2020-11-30] MEDS: LEVAQUIN PREMIX IV 500 MG 500 MG/100 ML BAG IV SCH (09:29)
[2020-11-30] MEDS: PEPCID 20 MG IV PREMIX* 20 MG/50 ML BAG IV SCH (09:29)
[2020-11-30] MEDS: ALBUMIN HUMAN 25%- 100 ML 100 ML IV SCH (09:30)
[2020-11-30] MEDS: K-DUR TAB 20 MEQ PO SCH ×2 (09:30→21:21)
[2020-11-30] MEDS: CARDIZEM CD 240 MG 24-HR PO SCH ×2 (09:31→21:22)
[2020-11-30] MEDS: XARELTO PO SCH (09:31)
[2020-11-30] MEDS: PROTONIX INJ 40 MG VIAL IVP SCH ×2 (09:31→21:34)
[2020-11-30] MEDS: HEMOCYTE-PLUS PO SCH (09:31)
[2020-11-30] MEDS: VITAMIN D3 125 mcg (5,000 UNITS) PO SCH (09:31)
[2020-11-30] MEDS: ASPIRIN EC 81 MG PO SCH (09:31)
[2020-11-30] MEDS ORDERED: DUONEB 0.5 MG/3 MG (3 mL) NEB SCH (13:00)
--- NOTE | 2020-11-30 15:12 | PCM.PROG ---
Progress Note Progress Note for Day of Date of Exam: 11/30/20 Subjective Subjective: Patient seen at bedside, overnight patient had some dyspnea and anxiety. CXR was obtained which showed worsening right pneumonia. Patient was given a breathing treatment and ativan 0.5 mg. This morning he feels better. He is still complaining of LE weakness but states it's better. He continues to have dry cough. He is currently being treated for ARF, dehydration, left lower ext cellulitis and generalized weakness. Patient also has chronic left knee pain, no erythema but slightly swollen and warm on exam. Labs: WBC 8.4 Hgb 9.5 Plt 126 Na: 142 K: 3.2 BUN/Cr: 21/1.45 Glucose 249 Echo: EF 52% CXR: increased right sided pneumonia MRI lumbar: multilevel DDD Knee XR: joint effusion noted 11/23/20: Blood Cx x 2 Strep pyogenes Plan: Continue IV antibiotics including Levaquin and Zosyn. Repeat blood cultures pending. Continue IVF at 75cc/hr, NS + KCl 40meQ and also give additional 40meQ BID. Repeat K level later his afternoon. Continue nebs, pulmicort and IS. Continue PT/OT as tolerated. Continue Xarelto and other home medications. Monitor AM labs and imaging. Past Medical Family Social History Past Med/Fam/Surg Hx: No changes since H&P Allergies: Allergies pseudoephedrine Allergy (Verified 11/23/20 17:33) Review of Systems ROS: No change since H&P Vital Signs and I&O's Vital Signs: Temperature 98.3 F Pulse Rate [Brachial] 82 Pulse Rate 74 Respiratory Rate 16 Blood Pressure [Left Arm] 199/91 O2 Sat by Pulse Oximetry 98 Intake and Output: Intake & Output 11/27/20 11/28/20 11/29/20 11/30/20 23:59 23:59 23:59 23:59 Intake Total 5592 / 5592 3160 / 3160 2650 / 2650 750 / 750 Output Total 6175 / 6175 3925 / 3925 3600 / 3600 2900 / 2900 Balance -583 / -583 -765 / -765 -950 / -950 -2150 / -2150 Physical Exam Oriented: Normal Eyes: Normal Ear: Normal Nose: Normal Throat: Normal Respiratory: Generalized and Diminished Cardiovascular: Normal and Edema Auscultation: Bowel Sounds: Normal Tenderness: Normal Skin: Normal Musculoskeletal: Right, Left, Knee (slightly warm, swelling noted, no erythema, surgical scar present, limited ROM due to leg weakness ), Leg, Back:Thoracic, Back:Lumbar, Swelling and Tender Psychiatric: Normal Mood Description: Calm Affect: Normal Speech Pattern: Clear and Appropriate Laboratory and Diagnostics Result Diagrams: 11/30/20 05:10 11/30/20 05:10 Labs: 11/23/20 16:25 Blood Blood Culture - Final 11/23/20 16:15 Blood Blood Culture - Final Strep Pyogenes (Grp A) 11/24/20 07:00 Stool Stool Culture - Final 11/24/20 07:00 Stool - Final 11/24/20 14:30 Urine,Clean Catch Urine Culture - Final Laboratory WBC 7.1 X10^3/uL (3.6-10.0) 11/30/20 05:10 RBC 2.90 X10^6/uL (4.7-6.0) L 11/30/20 05:10 Hgb 9.5 g/dL (13.5-18.0) L 11/30/20 05:10 Hct 26.9 % (42.0-54.0) L 11/30/20 05:10 MCV 92.8 fL (80.0-100.0) 11/30/20 05:10 MCH 32.8 pg (27.0-34.0) 11/30/20 05:10 MCHC 35.4 g/dL (33.0-35.0) H 11/30/20 05:10 RDW 14.9 % (11.6-16.5) 11/30/20 05:10 Plt Count 126 X10^3/uL (150.0-450.0) L 11/30/20 05:10 Plt Count Comment Decreased (ADEQUATE) 11/28/20 05:13 MPV 9.6 fL (7.4-11.0) 11/30/20 05:10 Neut % (Auto) 85.1 % (42.0-75.0) H 11/30/20 05:10 Lymph % (Auto) 7.1 % (21.0-51.0) L 11/30/20 05:10 [place] % (Auto) 7.5 % (0.0-13.0) 11/30/20 05:10 Eos % (Auto) 0.2 % (0.9-2.9) L 11/30/20 05:10 Baso % (Auto) 0.1 % (0.2-1.0) L 11/30/20 05:10 Neut # (Auto) 6.0 x10^3/uL (2.2-4.8) H 11/30/20 05:10 Lymph # (Auto) 0.5 X10^3/uL (1.3-2.9) L 11/30/20 05:10 [place] # (Auto) 0.5 x10^3/uL (0.3-0.8) 11/30/20 05:10 Eos # (Auto) 0.0 x10^3/uL (0.0-0.2) 11/30/20 05:10 Baso # (Auto) 0.0 X10^3/uL (0.0-0.1) 11/30/20 05:10 Absolute Nucleated RBC 0.0 /100WBC 11/30/20 05:10 Total Counted 100 11/28/20 05:13 Neutrophils % (Manual) 79 % (39-76) H 11/28/20 05:13 Band Neutrophils % 1 % (0-10) 11/28/20 05:13 Lymphocytes % (Manual) 11 % (13-43) L 11/28/20 05:13 Monocytes % (Manual) 9 % (4-9) 11/28/20 05:13 Plt Morphology Comment Normal (NORMAL) 11/28/20 05:13 RBC Morphology Normal (NORMAL) 11/28/20 05:13 D-Dimer 5.55 ug/ml (0.0-0.57) H* 11/24/20 09:16 Sodium 142 mmol/L (136-145) 11/30/20 05:10 Corrected Sodium 146 mmol/L (136-145) H 11/30/20 05:10 Potassium 3.2 mmol/L (3.5-5.1) L 11/30/20 05:10 Chloride 106 mmol/L (98-107) 11/30/20 05:10 Carbon Dioxide 29.5 mmol/L (21-32) 11/30/20 05:10 BUN 21 mg/dL (7-18) H 11/30/20 05:10 Creatinine 1.45 mg/dL (0.70-1.30) H 11/30/20 05:10 Est GFR (MDRD) Af Amer > 60 (>60) 11/30/20 05:10 Est GFR (MDRD) Non-Af 50 (>60) L 11/30/20 05:10 Glucose 273 mg/dL (65-99) H 11/30/20 05:10 POC Glucose (mg/dL) 270 mg/dL (65-99) H 11/30/20 12:20 Lactic Acid 2.5 mmol/L (0.4-2.0) H 11/24/20 05:57 Uric Acid 7.9 mg/dL (3.5-7.2) H 11/25/20 04:25 Calcium 8.1 mg/dL (8.5-10.1) L 11/30/20 05:10 Corrected Calcium 9.6 mg/dL (8.5-10.1) 11/30/20 05:10 Magnesium 2.1 mg/dL (1.7-2.9) 11/30/20 05:10 Total Bilirubin 1.10 mg/dL (0.2-1.0) H 11/30/20 05:10 AST 23 Units/L (15-37) 11/30/20 05:10 ALT 14 Units/L (12-78) 11/30/20 05:10 Alkaline Phosphatase 105 Units/L (46-116) 11/30/20 05:10 Creatine Kinase 56 Units/L (39-308) 11/23/20 16:15 CK-MB (CK-2) < 1.0 ng/mL (0-4.0) 11/23/20 16:15 CK/CKMB % Calc 1.8 % (<4) 11/23/20 16:15 Troponin I < 0.02 ng/mL (0-1.5) 11/23/20 16:15 B-Natriuretic Peptide 934 pg/mL (0-79) H* 11/29/20 04:53 Total Protein 6.0 g/dL (6.4-8.2) L 11/30/20 05:10 Albumin 2.1 g/dL (3.4-5.0) L 11/30/20 05:10 Globulin 3.9 g/dL (2.5-4.5) 11/30/20 05:10 Albumin/Globulin Ratio 0.5 Ratio (1.1-2.1) L 11/30/20 05:10 Specimen Type Catherized urine 11/25/20 10:20 Urine Color Yellow (YELLOW) 11/25/20 10:20 Urine Appearance Clear (CLEAR) 11/25/20 10:20 Urine pH 5.0 (5.0 - 8.0) 11/25/20 10:20 Ur Specific [place] 1.020 (1.000-1.030) 11/25/20 10:20 Urine Protein 2+ (NEGATIVE) 11/25/20 10:20 Urine Glucose (UA) Negative (NEGATIVE) 11/25/20 10:20 Urine Ketones Negative (NEGATIVE) 11/25/20 10:20 Urine Occult Blood 2+ (NEGATIVE) 11/25/20 10:20 Urine Nitrite Negative (NEGATIVE) 11/25/20 10:20 Urine Bilirubin Negative (NEGATIVE) 11/25/20 10:20 Urine Urobilinogen Normal (NORMAL) 11/25/20 10:20 Ur Leukocyte Esterase Negative (NEGATIVE) 11/25/20 10:20 Urine RBC 3-5 /HPF (0-3) A 11/25/20 10:20 Urine WBC 0-2 /HPF (0-5) 11/25/20 10:20 Ur Squamous Epith Cells Few /HPF (NEGATIVE) 11/25/20 10:20 Amorphous Sediment 2+ /HPF (NEGATIVE) 11/25/20 10:20 Urine Bacteria Trace /HPF (NEGATIVE) 11/25/20 10:20 Ur Culture Indicated? No/not indicated 11/25/20 10:20 Stool Description 30 grams loose dark 11/27/20 14:00 Stl Occult Blood (IFOB) Negative (NEGATIVE) 11/27/20 14:00 Stool for White Cells Positive (NEGATIVE) A 11/24/20 07:00 Stl C. diff Tox B Gene Negative (NEGATIVE) 11/24/20 07:00 Stl C. diff [id number] Presumptive negative (NEGATIVE) 11/24/20 07:00 Vancomycin Trough 22.2 ug/mL (15-20) H* 11/28/20 20:06 Random Vancomycin 12.8 ug/mL 11/27/20 04:29 Plan (1) Pneumonia: Status: Acute Qualifiers: Laterality: right Lung location: unspecified part of lung Pneumonia type: due to unspecified organism Qualified Code(s): J18.9 - Pneumonia, unspecified organism (2) Generalized weakness: Status: Acute (3) Bacteremia: Status: Acute (4) Acute renal failure: Status: Acute Qualifiers: Acute renal failure type: unspecified Qualified Code(s): N17.9 - Acute kidney failure, unspecified Plan: NORMAL SALINE WITH 2 AMPS SODIUM BICARB AT 150 ML/HR, ZOSYN 3.375G IV TID, LEVAQUIN 250MG IV Q48H, VANCOMYCIN, PEPCID IV BID, PROTONIX IV BID, HUMULIN R SLIDING SCALE, OTBS ACHS, XARELTO 10MG PO DAILY, AND HIS HOME MEDICATIONS OF ECOTRIN 81MG, LIPITOR, CARDIZEM, DILAUDID, SYNTHROID, HEMOCYTE PLUS, AND ZOCOR WERE RESUMED. (5) Sepsis: Status: Acute Qualifiers: Acute renal failure type: unspecified Sepsis acute organ dysfunction status: with acute organ dysfunction Sepsis type: sepsis due to unspecified organism Severe sepsis acute organ dysfunction type: acute renal failure Severe sepsis shock status: unspecified Qualified Code(s): A41.9 - Sepsis, unspecified organism; R65.20 - Severe sepsis without septic shock; N17.9 - Acute kidney failure, unspecified (6) Lower extremity cellulitis: Status: Acute Qualifiers: Laterality: left Qualified Code(s): L03.116 - Cellulitis of left lower limb (7) Dehydration: Status: Acute (8) Hypokalemia: Status: Acute (9) Nausea and vomiting: Status: Acute Qualifiers: Vomiting Intractability: non-intractable Vomiting type: unspecified Qualified Code(s): R11.2 - Nausea with vomiting, unspecified
[2020-11-30] MEDS ORDERED: LABETALOL HCL IVP ONE (16:46)
[2020-11-30] MEDS ORDERED: NORMODYNE INJ 20 MG VIAL IVP ONE (16:58)
[2020-11-30] MEDS ORDERED: NORMODYNE INJ 20 MG VIAL ONE (17:03)
[2020-11-30] MEDS ORDERED: PULMICORT NEB TX 0.5 MG NEB ONE (19:16)
[2020-11-30] MEDS: PULMICORT NEB TX 0.5 MG NEB SCH (20:00)
--- NOTE | 2020-11-30 20:27 | PCM.PROG ---
Progress Note - Progress Note for Day of Date of Exam: 11/28/20 - Subjective Subjective: IS BEING TREATED FOR SEPSIS, ACUTE RENAL FAILURE, DEHYDRATION, LLE CELLULITIS, HYPOKALEMIA, GENERALIZED WEAKNESS, AND NAUSEA/VOMITING. TODAY, HE IS ALERT AND ORIENTED, LYING IN BED ON MORNING ROUNDS. HE CONTINUES WITH COMPLAINTS OF GENERALIZED WEAKNESS AND BILATERAL LOWER EXTREMITY WEAKNESS, AND LOWER BACK PAIN. HE DOES HAVE MILD PAIN TO THE LEFT KNEE. SWELLING AND ERYTHEMA HAS DECREASED SINCE ADMISSION. HE ALSO CONTINUES WITH MILD SHORTNESS OF BREATH. HE DENIES NAUSEA THIS MORNING. ON EXAMINATION, HEART IS REGULAR IN RATE AND RHYTHM. BILATERAL LUNGS ARE NOTED TO HAVE DIMINIS HED LUNG SOUNDS THROUGHOUT. ABDOMEN IS ROUND, SOFT, AND NON-TENDER WITH NORMAL BOWEL SOUNDS NOTED IN ALL QUADRANTS. HIS VITALS THIS MORNING ARE: 97.9-65-20-98%-139/79. LABS WERE OBTAINED. ABNORMAL LAB VALUES INCLUDE THE FOLLOWING: RBC 3.06, HGB 10, HCT 28.4, PLT COUNT 121, POTASSIUM 2.8, BUN 41, CRE ATININE 1.70, GLUCOSE 225, CALCIUM 7.8, TOTAL BILI 1.10, AST 39, ALK PHOS 137, BNP 777, TOTAL PROTEIN 6.0, ALBUMIN 1.9. BLOOD CULTURES REVEAL GROWTH OF STREP PYOGENES (GROUP A). CHEST XRAY OBTAINED AND REVEALED: Patient is status post median sternotomy. The heart is mildly enlarged. No congestive heart failure is noted. No definite acute alveolar infiltrates or pleural effusions are identified. Bony thorax is unremarkable. HE IS CURRENTLY RECEIVING NORMAL SALINE WITH 2 AMPS OF BICARB AT 150 ML/HR, VANCOMYCIN 1.25G IV DAILY, ZOSYN 3.375G IV TID, LEVAQUIN 250MG IV Q48H, ALBUMIN 25% IV DAILY, HUMULIN R SLIDING SCALE, OTBS ACHS, PEPCID 20MG IV BID, PROTONIX 40MG IV BID, AND HIS HOME MEDICATIONS OF ECOTRIN 81MG, XARELTO 10MG PO DAILY, LIPITOR, CARDIZEM, DILAUDID, SYNTHROID, HEMOCYTE PLUS, AND ZOCOR WERE RESUMED. TODAY, WE WILL DISCONTINUE THE SODIUM BICARB FROM THE IV FLUIDS AND ADD POTASSIUM. WE WILL OBTAIN A LUMBAR SPINE MRI TO RULE OUT ABSCESS. OTHERWISE, WE WILL FOLLOW UP WITH AM LABS AND CONTINUE TO MONITOR. TIME SPENT ON CLINICAL ASSESSMENT, REVIEWING LABS AND IMAGING, DECISION MAKING, AND DOCUMENTATION WAS GREATER THAN 45 MINUTES. - Past Medical Family Social History Past Med/Fam/Surg Hx: No changes since H&P Allergies: Allergies pseudoephedrine Allergy (Verified 11/23/20 17:33) - Review of Systems ROS: No change since H&P - Vital Signs and I&O's Vital Signs: Temperature 98.5 F Pulse Rate [Brachial] 95 Pulse Rate 74 Respiratory Rate 18 Blood Pressure [Left Arm] 168/80 O2 Sat by Pulse Oximetry 97 Intake and Output: Intake & Output 11/28/20 11/29/20 11/30/20 12/01/20 11:59 11:59 11:59 11:59 Intake Total 3830 / 3830 3110 / 3110 3050 / 3050 480 / 480 Output Total 5650 / 5650 4000 / 4000 4000 / 4000 1400 / 1400 Balance -1820 / -1820 -890 / -890 -950 / -950 -920 / -920 - Physical Exam Oriented: Normal Eyes: Normal Ear: Normal Nose: Normal Throat: Normal Respiratory: Generalized, Diminished Cardiovascular: Normal, Edema : Normal Auscultation: Bowel Sounds: Normal Tenderness: Normal Skin: Normal Musculoskeletal: Right, Left, Knee (slightly warm, swelling noted, no erythema, surgical scar present, limited ROM due to leg weakness), Leg, Back:Thoracic, Back:Lumbar, Swelling, Tender Psychiatric: Normal Mood Description: Calm Affect: Normal Speech Pattern: Clear, Appropriate - Laboratory and Diagnostics Result Diagrams: 11/30/20 05:10 11/30/20 15:29 Labs: 11/23/20 16:25 Blood Blood Culture - Final 11/23/20 16:15 Blood Blood Culture - Final Strep Pyogenes (Grp A) 11/24/20 07:00 Stool Stool Culture - Final 11/24/20 07:00 Stool - Final 11/24/20 14:30 Urine,Clean Catch Urine Culture - Final Laboratory WBC 7.1 X10^3/uL (3.6-10.0) 11/30/20 05:10 RBC 2.90 X10^6/uL (4.7-6.0) L 11/30/20 05:10 Hgb 9.5 g/dL (13.5-18.0) L 11/30/20 05:10 Hct 26.9 % (42.0-54.0) L 11/30/20 05:10 MCV 92.8 fL (80.0-100.0) 11/30/20 05:10 MCH 32.8 pg (27.0-34.0) 11/30/20 05:10 MCHC 35.4 g/dL (33.0-35.0) H 11/30/20 05:10 RDW 14.9 % (11.6-16.5) 11/30/20 05:10 Plt Count 126 X10^3/uL (150.0-450.0) L 11/30/20 05:10 Plt Count Comment Decreased (ADEQUATE) 11/28/20 05:13 MPV 9.6 fL (7.4-11.0) 11/30/20 05:10 Neut % (Auto) 85.1 % (42.0-75.0) H 11/30/20 05:10 Lymph % (Auto) 7.1 % (21.0-51.0) L 11/30/20 05:10 [place] % (Auto) 7.5 % (0.0-13.0) 11/30/20 05:10 Eos % (Auto) 0.2 % (0.9-2.9) L 11/30/20 05:10 Baso % (Auto) 0.1 % (0.2-1.0) L 11/30/20 05:10 Neut # (Auto) 6.0 x10^3/uL (2.2-4.8) H 11/30/20 05:10 Lymph # (Auto) 0.5 X10^3/uL (1.3-2.9) L 11/30/20 05:10 [place] # (Auto) 0.5 x10^3/uL (0.3-0.8) 11/30/20 05:10 Eos # (Auto) 0.0 x10^3/uL (0.0-0.2) 11/30/20 05:10 Baso # (Auto) 0.0 X10^3/uL (0.0-0.1) 11/30/20 05:10 Absolute Nucleated RBC 0.0 /100WBC 11/30/20 05:10 Total Counted 100 11/28/20 05:13 Neutrophils % (Manual) 79 % (39-76) H 11/28/20 05:13 Band Neutrophils % 1 % (0-10) 11/28/20 05:13 Lymphocytes % (Manual) 11 % (13-43) L 11/28/20 05:13 Monocytes % (Manual) 9 % (4-9) 11/28/20 05:13 Plt Morphology Comment Normal (NORMAL) 11/28/20 05:13 RBC Morphology Normal (NORMAL) 11/28/20 05:13 D-Dimer 5.55 ug/ml (0.0-0.57) H* 11/24/20 09:16 Sodium 142 mmol/L (136-145) 11/30/20 05:10 Corrected Sodium 146 mmol/L (136-145) H 11/30/20 05:10 Potassium 3.7 mmol/L (3.5-5.1) 11/30/20 15:29 Chloride 106 mmol/L (98-107) 11/30/20 05:10 Carbon Dioxide 29.5 mmol/L (21-32) 11/30/20 05:10 BUN 21 mg/dL (7-18) H 11/30/20 05:10 Creatinine 1.45 mg/dL (0.70-1.30) H 11/30/20 05:10 Est GFR (MDRD) Af Amer > 60 (>60) 11/30/20 05:10 Est GFR (MDRD) Non-Af 50 (>60) L 11/30/20 05:10 Glucose 273 mg/dL (65-99) H 11/30/20 05:10 POC Glucose (mg/dL) 242 mg/dL (65-99) H 11/30/20 16:35 Lactic Acid 2.5 mmol/L (0.4-2.0) H 11/24/20 05:57 Uric Acid 7.9 mg/dL (3.5-7.2) H 11/25/20 04:25 Calcium 8.1 mg/dL (8.5-10.1) L 11/30/20 05:10 Corrected Calcium 9.6 mg/dL (8.5-10.1) 11/30/20 05:10 Magnesium 2.1 mg/dL (1.7-2.9) 11/30/20 05:10 Total Bilirubin 1.10 mg/dL (0.2-1.0) H 11/30/20 05:10 AST 23 Units/L (15-37) 11/30/20 05:10 ALT 14 Units/L (12-78) 11/30/20 05:10 Alkaline Phosphatase 105 Units/L (46-116) 11/30/20 05:10 Creatine Kinase 56 Units/L (39-308) 11/23/20 16:15 CK-MB (CK-2) < 1.0 ng/mL (0-4.0) 11/23/20 16:15 CK/CKMB % Calc 1.8 % (<4) 11/23/20 16:15 Troponin I < 0.02 ng/mL (0-1.5) 11/23/20 16:15 B-Natriuretic Peptide 934 pg/mL (0-79) H* 11/29/20 04:53 Total Protein 6.0 g/dL (6.4-8.2) L 11/30/20 05:10 Albumin 2.1 g/dL (3.4-5.0) L 11/30/20 05:10 Globulin 3.9 g/dL (2.5-4.5) 11/30/20 05:10 Albumin/Globulin Ratio 0.5 Ratio (1.1-2.1) L 11/30/20 05:10 Specimen Type Catherized urine 11/25/20 10:20 Urine Color Yellow (YELLOW) 11/25/20 10:20 Urine Appearance Clear (CLEAR) 11/25/20 10:20 Urine pH 5.0 (5.0 - 8.0) 11/25/20 10:20 Ur Specific [place] 1.020 (1.000-1.030) 11/25/20 10:20 Urine Protein 2+ (NEGATIVE) 11/25/20 10:20 Urine Glucose (UA) Negative (NEGATIVE) 11/25/20 10:20 Urine Ketones Negative (NEGATIVE) 11/25/20 10:20 Urine Occult Blood 2+ (NEGATIVE) 11/25/20 10:20 Urine Nitrite Negative (NEGATIVE) 11/25/20 10:20 Urine Bilirubin Negative (NEGATIVE) 11/25/20 10:20 Urine Urobilinogen Normal (NORMAL) 11/25/20 10:20 Ur Leukocyte Esterase Negative (NEGATIVE) 11/25/20 10:20 Urine RBC 3-5 /HPF (0-3) A 11/25/20 10:20 Urine WBC 0-2 /HPF (0-5) 11/25/20 10:20 Ur Squamous Epith Cells Few /HPF (NEGATIVE) 11/25/20 10:20 Amorphous Sediment 2+ /HPF (NEGATIVE) 11/25/20 10:20 Urine Bacteria Trace /HPF (NEGATIVE) 11/25/20 10:20 Ur Culture Indicated? No/not indicated 11/25/20 10:20 Stool Description 30 grams loose dark 11/27/20 14:00 Stl Occult Blood (IFOB) Negative (NEGATIVE) 11/27/20 14:00 Stool for White Cells Positive (NEGATIVE) A 11/24/20 07:00 Stl C. diff Tox B Gene Negative (NEGATIVE) 11/24/20 07:00 Stl C. diff [id number] Presumptive negative (NEGATIVE) 11/24/20 07:00 Vancomycin Trough 22.2 ug/mL (15-20) H* 11/28/20 20:06 Random Vancomycin 12.8 ug/mL 11/27/20 04:29 - Plan (1) Acute renal failure Status: Acute Qualifiers: Acute renal failure type: unspecified Qualified Code(s): N17.9 - Acute kidney failure, unspecified Plan: NORMAL SALINE WITH KCL AT 150 ML/HR, ZOSYN 3.375G IV TID, LEVAQUIN 250MG IV Q48H, VANCOMYCIN, PEPCID IV BID, PROTONIX IV BID, HUMULIN R SLIDING SCALE, OTBS ACHS, XARELTO 10MG PO DAILY, AND HIS HOME MEDICATIONS OF ECOTRIN 81MG, LIPITOR, CARDIZEM, DILAUDID, SYNTHROID, HEMOCYTE PLUS, AND ZOCOR WERE RESUMED. (2) Sepsis Status: Acute Qualifiers: Sepsis type: Streptococcus group A Sepsis acute organ dysfunction status: with acute organ dysfunction Severe sepsis acute organ dysfunction type: acute renal failure Acute renal failure type: unspecified Severe sepsis shock status: unspecified Qualified Code(s): A40.0 - Sepsis due to streptococcus, group A; R65.20 - Severe sepsis without septic shock; N17.9 - Acute kidney failure, unspecified (3) Lower extremity cellulitis Status: Acute Qualifiers: Laterality: left Qualified Code(s): L03.116 - Cellulitis of left lower limb (4) Dehydration Status: Acute (5) Hypokalemia Status: Acute (6) Nausea and vomiting Status: Acute Qualifiers: Vomiting type: unspecified Vomiting Intractability: non-intractable Qualified Code(s): R11.2 - Nausea with vomiting, unspecified (7) Generalized weakness Status: Acute
[2020-11-30] MEDS: COZAAR PO SCH (21:19)
[2020-11-30] MEDS: LIPITOR TAB 40 MG PO SCH (21:23)
[2020-11-30] MEDS: SNACK - Diabetic Appropriate PO SCH (21:32)
[2020-11-30] MEDS: FLOMAX PO SCH (21:33)
[2020-12-01] MEDS: DUONEB 0.5 MG/3 MG (3 mL) NEB SCH ×6 (00:09→21:15)
[2020-12-01] MEDS ORDERED: LABETALOL HCL IVP ONE (01:13)
[2020-12-01 04:57] LABS: BASOPHILS % (AUTO) 0.4 % (0.2-1.0); EOSINOPHILS % (AUTO) 0.6 % (0.9-2.9); HEMATOCRIT 25.4 % (42.0-54.0); HEMOGLOBIN 8.9 g/dL (13.5-18.0); LYMPHOCYTES # (AUTO) 0.5 X10^3/uL (1.3-2.9); LYMPHOCYTES % (AUTO) 9.9 % (21.0-51.0); MEAN CORPUSCULAR HEMOGLOBIN 32.8 pg (27.0-34.0); MEAN CORPUSCULAR HGB CONC 35.1 g/dL (33.0-35.0); MEAN CORPUSCULAR VOLUME 93.4 fL (80.0-100.0); MEAN PLATELET VOLUME 9.4 fL (7.4-11.0); MONOCYTES # (AUTO) 0.5 x10^3/uL (0.3-0.8); MONOCYTES % (AUTO) 9.5 % (0.0-13.0); NEUTROPHILS # (AUTO) 4.4 x10^3/uL (2.2-4.8); NEUTROPHILS % (AUTO) 79.6 % (42.0-75.0); PLATELET COUNT 142 X10^3/uL (150.0-450.0); RED BLOOD COUNT 2.72 X10^6/uL (4.7-6.0); RED CELL DISTRIBUTION WIDTH 14.7 % (11.6-16.5); WHITE BLOOD COUNT 5.5 X10^3/uL (3.6-10.0)
[2020-12-01 05:17] LABS: ALANINE AMINOTRANSFERASE 13 Units/L (12-78); ALBUMIN 2.3 g/dL (3.4-5.0); ALKALINE PHOSPHATASE 92 Units/L (46-116); ASPARTATE AMINO TRANSFERASE 25 Units/L (15-37); BLOOD UREA NITROGEN 16 mg/dL (7-18); CALCIUM 8.4 mg/dL (8.5-10.1); CARBON DIOXIDE 28.9 mmol/L (21-32); CHLORIDE 106 mmol/L (98-107); COR CA(FOR HYPOALB) 9.8 mg/dL (8.5-10.1); COR NA(FOR HYPERGLY) 147 mmol/L (136-145); CREATININE 1.32 mg/dL (0.70-1.30); SODIUM 142 mmol/L (136-145); TOTAL PROTEIN 6.3 g/dL (6.4-8.2); eGFR NON BLACK RACES 56 (>60)
[2020-12-01] MEDS: SYNTHROID 50 mcg TAB PO SCH (05:47)
[2020-12-01] MEDS: APRESOLINE TAB 25 MG PO SCH ×3 (05:48→21:08)
[2020-12-01] MEDS: HumuLIN R SUBCUT PRN ×4 (05:49→21:11)
--- NOTE | 2020-12-01 05:50 | RAD ---
PROCEDURE: Chest X-ray 1 View .HISTORY: Dyspnea.TECHNIQUE: AP portable view done at 5:10 a.m..COMPARISON: 11/30/2020.TECHNICAL QUALITY: Satisfactory .FINDINGS:Unremarkable cardio mediastinal silhouette.Normal central vascularity.Improved consolidation on the right with mild changes remaining present at the base. No pleural fluid or pneumothorax.IMPRESSION:Improving pneumonia on the right with mild residual changes at the base.Electronically signed by: Conrad Castillo (Dec 01, 2020 05:48:59)
[2020-12-01] MEDS ORDERED: SALINE 3% 15 ML NEB TX ONE (08:47)
[2020-12-01] MEDS: PULMICORT NEB TX 0.5 MG NEB SCH ×2 (08:50→21:15)
[2020-12-01] MEDS ORDERED: SALINE 3% 15 ML NEB TX NEB ONE (09:31)
[2020-12-01] MEDS: ALBUMIN HUMAN 25%- 100 ML 100 ML IV SCH (09:36)
[2020-12-01] MEDS: NS + KCL 40 MEQ/L 1,000 ML IV SCH ×2 (09:36→17:36)
[2020-12-01] MEDS: K-DUR TAB 20 MEQ PO SCH ×2 (09:37→21:09)
[2020-12-01] MEDS: HEMOCYTE-PLUS PO SCH (09:37)
[2020-12-01] MEDS: CARDIZEM CD 240 MG 24-HR PO SCH ×2 (09:37→21:09)
[2020-12-01] MEDS: ZOSYN VIAL 3.375 GRAMS 3.375 G in NS 50 ML IV + SPIKE MINIBAG* 50 ML IV SCH ×2 (09:37→21:11)
[2020-12-01] MEDS: ASPIRIN EC 81 MG PO SCH (09:37)
[2020-12-01] MEDS: VITAMIN D3 125 mcg (5,000 UNITS) PO SCH (09:38)
[2020-12-01] MEDS: XARELTO PO SCH (09:38)
[2020-12-01] MEDS: LEVAQUIN PREMIX IV 500 MG 500 MG/100 ML BAG IV SCH (09:38)
[2020-12-01] MEDS: PROTONIX INJ 40 MG VIAL IVP SCH ×2 (09:38→21:11)
[2020-12-01] MEDS: PEPCID 20 MG IV PREMIX* 20 MG/50 ML BAG IV SCH (09:38)
--- NOTE | 2020-12-01 10:01 | PCM.PROG ---
Progress Note - Progress Note for Day of Date of Exam: 12/01/20 - Subjective Subjective: IS BEING TREATED FOR SEPSIS, ACUTE RENAL FAILURE, DEHYDRATION, LLE CELLULITIS, HYPOKALEMIA, GENERALIZED WEAKNESS, AND NAUSEA/VOMITING. CHEST XRAY OVER THE WEEKEND SHOWED A RIGHT BASILAR PNEUMONIA. TODAY, HE IS ALERT AND ORIENTED, LYING IN BED ON MORNING ROUNDS. HE CONTINUES WITH COMPLAINTS OF GENERALIZED WEAKNESS, BILATERAL LOWER EXTREMITY WEAKNESS, AND SHORNESS OF BREATH. HE REPORTS THAT HE WASNT ABLE TO GET OUT OF BED OVER THE WEEKEND. ON EXAMINATION, HEART IS REGULAR IN RATE AND RHYTHM. BILATERAL LUNGS ARE NOTED TO HAVE DIMINISHED LUNG SOUNDS THROUGHOUT. ABDOMEN IS ROUND, SOFT, AND NON-TENDER WITH NORMAL BOWEL SOUNDS NOTED IN ALL QUADRANTS. BLE ARE NOTED TO HAVE TRACE EDEMA. HIS VITALS THIS MORNING ARE: 98.1-88-18-95%-183/89. LABS WERE OBTAINED. ABNORMAL LAB VALUES INCLUDE THE FOLLOWING: RBC 2.72, HGB 8.9, HCT 25.4, PLT COUNT 142, POTASSIUM 2.9, BUN 25, CREATININE 1.40, GLUCOSE 197, CALCIUM 8.1, TOTAL BILI 1.30, ALK PHOS 119, BNP 934, TOTAL PROTEIN 6.1, ALBUMIN 2.1. BLOOD CULTURES REVEALED GROWTH OF STREP PYOGENES (GROUP A). REPEAT BLOOD CULTURES WERE OBTAINED. CHEST XRAY OBTAINED AND REVEALED: Improving pneumonia on the right with mild residual changes at the base. HE IS CURRENTLY RECEIVING NORMAL SALINE WITH 40MEQ KCL AT 75 ML/HR, ZOSYN 3.375G IV TID, LEVAQUIN 500MG IV DAILY, DUONEBS Q4H, PULMICORT NEBS BID, ALBUMIN 25% IV DAILY, HUMULIN R SLIDING SCALE, OTBS ACHS, PEPCID 20MG IV BID, PROTONIX 40MG IV BID, AND HIS HOME MEDICATIONS OF ECOTRIN 81MG, XARELTO 10MG PO DAILY, LIPITOR, CARDIZEM, DILAUDID, SYNTHROID, HEMOCYTE PLUS, AND ZOCOR WERE RESUMED. WE WILL CONTINUE WITH CURRENT PLAN OF CARE TODAY. PHYSICAL THERAPY WILL WORK WITH PATIENT ON ATTEMPTING TO AMBULATE. OTHERWISE, WE WILL FOLLOW UP WITH AM LABS AND CHEST XRAY AND CONTINUE TO MONITOR. TIME SPENT ON CLINICAL ASSESSMENT, REVIEWING LABS AND IMAGING, DECISION MAKING, AND DOCUMENTATION WAS GREATER THAN 45 MINUTES. - Past Medical Family Social History Past Med/Fam/Surg Hx: No changes since H&P Allergies: Allergies pseudoephedrine Allergy (Verified 11/23/20 17:33) - Review of Systems ROS: No change since H&P - Vital Signs and I&O's Vital Signs: Temperature 98.1 F Pulse Rate [Brachial] 88 Pulse Rate 93 Respiratory Rate 18 Blood Pressure [Left Arm] 183/89 O2 Sat by Pulse Oximetry 94 Intake and Output: Intake & Output 11/28/20 11/29/20 11/30/20 12/01/20 11:59 11:59 11:59 11:59 Intake Total 3830 / 3830 3110 / 3110 3050 / 3050 2755 / 2755 Output Total 5650 / 5650 4000 / 4000 4000 / 4000 3475 / 3475 Balance -1820 / -1820 -890 / -890 -950 / -950 -720 / -720 - Physical Exam Oriented: Normal Eyes: Normal Ear: Normal Nose: Normal Throat: Normal Respiratory: Generalized, Diminished Cardiovascular: Normal, Edema : Normal Auscultation: Bowel Sounds: Normal Palpation: Normal Tenderness: Normal Skin: Normal Musculoskeletal: Right, Left, Knee (slightly warm, swelling noted, no erythema, surgical scar present, limited ROM due to leg weakness), Leg, Back:Thoracic, Back:Lumbar, Swelling, Tender Psychiatric: Normal Mood Description: Calm Affect: Normal Speech Pattern: Clear, Appropriate - Laboratory and Diagnostics Result Diagrams: 12/01/20 04:30 12/01/20 04:30 Labs: 11/23/20 16:25 Blood Blood Culture - Final 11/23/20 16:15 Blood Blood Culture - Final Strep Pyogenes (Grp A) 11/24/20 07:00 Stool Stool Culture - Final 11/24/20 07:00 Stool - Final 11/24/20 14:30 Urine,Clean Catch Urine Culture - Final Laboratory WBC 5.5 X10^3/uL (3.6-10.0) 12/01/20 04:30 RBC 2.72 X10^6/uL (4.7-6.0) L 12/01/20 04:30 Hgb 8.9 g/dL (13.5-18.0) L 12/01/20 04:30 Hct 25.4 % (42.0-54.0) L 12/01/20 04:30 MCV 93.4 fL (80.0-100.0) 12/01/20 04:30 MCH 32.8 pg (27.0-34.0) 12/01/20 04:30 MCHC 35.1 g/dL (33.0-35.0) H 12/01/20 04:30 RDW 14.7 % (11.6-16.5) 12/01/20 04:30 Plt Count 142 X10^3/uL (150.0-450.0) L 12/01/20 04:30 Plt Count Comment Decreased (ADEQUATE) 11/28/20 05:13 MPV 9.4 fL (7.4-11.0) 12/01/20 04:30 Neut % (Auto) 79.6 % (42.0-75.0) H 12/01/20 04:30 Lymph % (Auto) 9.9 % (21.0-51.0) L 12/01/20 04:30 [place] % (Auto) 9.5 % (0.0-13.0) 12/01/20 04:30 Eos % (Auto) 0.6 % (0.9-2.9) L 12/01/20 04:30 Baso % (Auto) 0.4 % (0.2-1.0) 12/01/20 04:30 Neut # (Auto) 4.4 x10^3/uL (2.2-4.8) 12/01/20 04:30 Lymph # (Auto) 0.5 X10^3/uL (1.3-2.9) L 12/01/20 04:30 [place] # (Auto) 0.5 x10^3/uL (0.3-0.8) 12/01/20 04:30 Eos # (Auto) 0.0 x10^3/uL (0.0-0.2) 12/01/20 04:30 Baso # (Auto) 0.0 X10^3/uL (0.0-0.1) 12/01/20 04:30 Absolute Nucleated RBC 0.0 /100WBC 12/01/20 04:30 Total Counted 100 11/28/20 05:13 Neutrophils % (Manual) 79 % (39-76) H 11/28/20 05:13 Band Neutrophils % 1 % (0-10) 11/28/20 05:13 Lymphocytes % (Manual) 11 % (13-43) L 11/28/20 05:13 Monocytes % (Manual) 9 % (4-9) 11/28/20 05:13 Plt Morphology Comment Normal (NORMAL) 11/28/20 05:13 RBC Morphology Normal (NORMAL) 11/28/20 05:13 D-Dimer 5.55 ug/ml (0.0-0.57) H* 11/24/20 09:16 Sodium 142 mmol/L (136-145) 12/01/20 04:30 Corrected Sodium 147 mmol/L (136-145) H 12/01/20 04:30 Potassium 4.1 mmol/L (3.5-5.1) 12/01/20 04:30 Chloride 106 mmol/L (98-107) 12/01/20 04:30 Carbon Dioxide 28.9 mmol/L (21-32) 12/01/20 04:30 BUN 16 mg/dL (7-18) 12/01/20 04:30 Creatinine 1.32 mg/dL (0.70-1.30) H 12/01/20 04:30 Est GFR (MDRD) Af Amer > 60 (>60) 12/01/20 04:30 Est GFR (MDRD) Non-Af 56 (>60) L 12/01/20 04:30 Glucose 288 mg/dL (65-99) H 12/01/20 04:30 POC Glucose (mg/dL) 323 mg/dL (65-99) H 11/30/20 21:19 Lactic Acid 2.5 mmol/L (0.4-2.0) H 11/24/20 05:57 Uric Acid 7.9 mg/dL (3.5-7.2) H 11/25/20 04:25 Calcium 8.4 mg/dL (8.5-10.1) L 12/01/20 04:30 Corrected Calcium 9.8 mg/dL (8.5-10.1) 12/01/20 04:30 Magnesium 2.1 mg/dL (1.7-2.9) 11/30/20 05:10 Total Bilirubin 0.90 mg/dL (0.2-1.0) 12/01/20 04:30 AST 25 Units/L (15-37) 12/01/20 04:30 ALT 13 Units/L (12-78) 12/01/20 04:30 Alkaline Phosphatase 92 Units/L (46-116) 12/01/20 04:30 Creatine Kinase 56 Units/L (39-308) 11/23/20 16:15 CK-MB (CK-2) < 1.0 ng/mL (0-4.0) 11/23/20 16:15 CK/CKMB % Calc 1.8 % (<4) 11/23/20 16:15 Troponin I < 0.02 ng/mL (0-1.5) 11/23/20 16:15 B-Natriuretic Peptide 934 pg/mL (0-79) H* 11/29/20 04:53 Total Protein 6.3 g/dL (6.4-8.2) L 12/01/20 04:30 Albumin 2.3 g/dL (3.4-5.0) L 12/01/20 04:30 Globulin 4.0 g/dL (2.5-4.5) 12/01/20 04:30 Albumin/Globulin Ratio 0.6 Ratio (1.1-2.1) L 12/01/20 04:30 Specimen Type Catherized urine 11/25/20 10:20 Urine Color Yellow (YELLOW) 11/25/20 10:20 Urine Appearance Clear (CLEAR) 11/25/20 10:20 Urine pH 5.0 (5.0 - 8.0) 11/25/20 10:20 Ur Specific [place] 1.020 (1.000-1.030) 11/25/20 10:20 Urine Protein 2+ (NEGATIVE) 11/25/20 10:20 Urine Glucose (UA) Negative (NEGATIVE) 11/25/20 10:20 Urine Ketones Negative (NEGATIVE) 11/25/20 10:20 Urine Occult Blood 2+ (NEGATIVE) 11/25/20 10:20 Urine Nitrite Negative (NEGATIVE) 11/25/20 10:20 Urine Bilirubin Negative (NEGATIVE) 11/25/20 10:20 Urine Urobilinogen Normal (NORMAL) 11/25/20 10:20 Ur Leukocyte Esterase Negative (NEGATIVE) 11/25/20 10:20 Urine RBC 3-5 /HPF (0-3) A 11/25/20 10:20 Urine WBC 0-2 /HPF (0-5) 11/25/20 10:20 Ur Squamous Epith Cells Few /HPF (NEGATIVE) 11/25/20 10:20 Amorphous Sediment 2+ /HPF (NEGATIVE) 11/25/20 10:20 Urine Bacteria Trace /HPF (NEGATIVE) 11/25/20 10:20 Ur Culture Indicated? No/not indicated 11/25/20 10:20 Stool Description 30 grams loose dark 11/27/20 14:00 Stl Occult Blood (IFOB) Negative (NEGATIVE) 11/27/20 14:00 Stool for White Cells Positive (NEGATIVE) A 11/24/20 07:00 Stl C. diff Tox B Gene Negative (NEGATIVE) 11/24/20 07:00 Stl C. diff [id number] Presumptive negative (NEGATIVE) 11/24/20 07:00 Vancomycin Trough 22.2 ug/mL (15-20) H* 11/28/20 20:06 Random Vancomycin 12.8 ug/mL 11/27/20 04:29 - Plan (1) Pneumonia Status: Acute Qualifiers: Pneumonia type: due to unspecified organism Laterality: right Lung location: unspecified part of lung Qualified Code(s): J18.9 - Pneumonia, unspecified organism Plan: NORMAL SALINE WITH 40MEQ KCL AT 75 ML/HR, ZOSYN 3.375G IV TID, LEVAQUIN 500MG IV DAILY, DUONEBS Q4H, PULMICORT NEBS BID, ALBUMIN 25% IV DAILY, HUMULIN R SLIDING SCALE, OTBS ACHS, PEPCID 20MG IV BID, PROTONIX 40MG IV BID, AND HIS HOME MEDICATIONS OF ECOTRIN 81MG, XARELTO 10MG PO DAILY, LIPITOR, CARDIZEM, DILAUDID, SYNTHROID, HEMOCYTE PLUS, AND ZOCOR WERE RESUMED. (2) Acute renal failure Status: Acute Qualifiers: Acute renal failure type: unspecified Qualified Code(s): N17.9 - Acute kidney failure, unspecified (3) Sepsis Status: Acute Qualifiers: Sepsis type: Streptococcus group A Sepsis acute organ dysfunction status: with acute organ dysfunction Severe sepsis acute organ dysfunction type: acute renal failure Acute renal failure type: unspecified Severe sepsis shock status: unspecified Qualified Code(s): A40.0 - Sepsis due to streptococcus, group A; R65.20 - Severe sepsis without septic shock; N17.9 - Acute kidney failure, unspecified (4) Lower extremity cellulitis Status: Acute Qualifiers: Laterality: left Qualified Code(s): L03.116 - Cellulitis of left lower limb (5) Dehydration Status: Acute (6) Hypokalemia Status: Acute (7) Nausea and vomiting Status: Acute Qualifiers: Vomiting type: unspecified Vomiting Intractability: non-intractable Qualified Code(s): R11.2 - Nausea with vomiting, unspecified (8) Generalized weakness Status: Acute
[2020-12-01] MEDS ORDERED: PHARMACY COMMENT IV ONE (11:00)
[2020-12-01 11:33] VITALS: BMI 34.4
[2020-12-01 12:26] LABS: CREATININE 1.39 mg/dL (0.70-1.30); VANCOMYCIN,TROUGH 2.7 ug/mL (15-20)
[2020-12-01] MEDS: FLOMAX PO SCH (21:08)
[2020-12-01] MEDS: LIPITOR TAB 40 MG PO SCH (21:09)
[2020-12-01] MEDS: COZAAR PO SCH (21:09)
[2020-12-01] MEDS: SNACK - Diabetic Appropriate PO SCH (21:12)
[2020-12-02] MEDS: NS + KCL 40 MEQ/L 1,000 ML IV SCH ×2 (00:24→19:21)
[2020-12-02] MEDS: DUONEB 0.5 MG/3 MG (3 mL) NEB SCH ×6 (00:36→20:55)
[2020-12-02 05:13] LABS: BASOPHILS % (AUTO) 0.4 % (0.2-1.0); EOSINOPHILS % (AUTO) 0.5 % (0.9-2.9); HEMATOCRIT 24.3 % (42.0-54.0); HEMOGLOBIN 8.5 g/dL (13.5-18.0); LYMPHOCYTES # (AUTO) 0.6 X10^3/uL (1.3-2.9); LYMPHOCYTES % (AUTO) 10.5 % (21.0-51.0); MEAN CORPUSCULAR HEMOGLOBIN 32.6 pg (27.0-34.0); MEAN CORPUSCULAR HGB CONC 35.1 g/dL (33.0-35.0); MEAN CORPUSCULAR VOLUME 92.9 fL (80.0-100.0); MEAN PLATELET VOLUME 9.4 fL (7.4-11.0); MONOCYTES # (AUTO) 0.5 x10^3/uL (0.3-0.8); MONOCYTES % (AUTO) 9.4 % (0.0-13.0); NEUTROPHILS # (AUTO) 4.5 x10^3/uL (2.2-4.8); NEUTROPHILS % (AUTO) 79.2 % (42.0-75.0); PLATELET COUNT 157 X10^3/uL (150.0-450.0); RED BLOOD COUNT 2.62 X10^6/uL (4.7-6.0); RED CELL DISTRIBUTION WIDTH 15.1 % (11.6-16.5); WHITE BLOOD COUNT 5.7 X10^3/uL (3.6-10.0)
[2020-12-02 05:15] LABS: ALANINE AMINOTRANSFERASE 13 Units/L (12-78); ALBUMIN 2.4 g/dL (3.4-5.0); ALKALINE PHOSPHATASE 81 Units/L (46-116); ASPARTATE AMINO TRANSFERASE 20 Units/L (15-37); BLOOD UREA NITROGEN 16 mg/dL (7-18); CALCIUM 8.5 mg/dL (8.5-10.1); CARBON DIOXIDE 26.3 mmol/L (21-32); CHLORIDE 107 mmol/L (98-107); COR CA(FOR HYPOALB) 9.8 mg/dL (8.5-10.1); COR NA(FOR HYPERGLY) 144 mmol/L (136-145); CREATININE 1.32 mg/dL (0.70-1.30); SODIUM 140 mmol/L (136-145); TOTAL PROTEIN 6.3 g/dL (6.4-8.2); eGFR NON BLACK RACES 56 (>60)
[2020-12-02] MEDS: APRESOLINE TAB 25 MG PO SCH ×3 (05:48→21:13)
[2020-12-02] MEDS: SYNTHROID 50 mcg TAB PO SCH (05:48)
[2020-12-02] MEDS: HumuLIN R SUBCUT PRN ×4 (06:03→21:33)
--- NOTE | 2020-12-02 06:24 | RAD ---
HISTORYShortness of breathSTUDYChest AP [id number] is status post median sternotomy. The heart is enlarged. No definite congestive heart failure is noted. Haziness in the right lung base may be due to residual infiltrate remainder of the right lung and left upper lung beverly are clear. There is increased dens ity in the retrocardiac area of the left lower lobe obscuring the medial left hemidiaphragm. This cou ld be due to atelectasis or infiltrate. No pleural effusion is identified. Bony thorax is unremarkabl e.IMPRESSIONHaziness in the right lung base may represent residual infiltrate unchanged in appearance from the prior examinationIncreased density retrocardiac area left lower lobe obscuring the medial l eft hemidiaphragm. This could represent atelectasis or infiltrate.Electronically signed by: JUSTINE JHAVERI (Dec 02, 2020 06:21:54)
[2020-12-02] MEDS: ALBUMIN HUMAN 25%- 100 ML 100 ML IV SCH (09:11)
[2020-12-02] MEDS: K-DUR TAB 20 MEQ PO SCH ×2 (09:12→21:10)
[2020-12-02] MEDS: HEMOCYTE-PLUS PO SCH (09:12)
[2020-12-02] MEDS: ASPIRIN EC 81 MG PO SCH (09:12)
[2020-12-02] MEDS: CARDIZEM CD 240 MG 24-HR PO SCH ×2 (09:12→21:08)
[2020-12-02] MEDS: PROTONIX INJ 40 MG VIAL IVP SCH ×2 (09:13→21:06)
[2020-12-02] MEDS: PEPCID 20 MG IV PREMIX* 20 MG/50 ML BAG IV SCH (09:13)
[2020-12-02] MEDS: LEVAQUIN PREMIX IV 500 MG 500 MG/100 ML BAG IV SCH (09:13)
[2020-12-02] MEDS: VITAMIN D3 125 mcg (5,000 UNITS) PO SCH (09:13)
[2020-12-02] MEDS: ZOSYN VIAL 3.375 GRAMS 3.375 G in NS 50 ML IV + SPIKE MINIBAG* 50 ML IV SCH ×2 (09:13→21:05)
[2020-12-02] MEDS: XARELTO PO SCH (09:13)
[2020-12-02] MEDS: PULMICORT NEB TX 0.5 MG NEB SCH ×2 (09:28→20:55)
--- NOTE | 2020-12-02 11:14 | PCM.PROG ---
Progress Note - Progress Note for Day of Date of Exam: 12/02/20 - Subjective Subjective: IS BEING TREATED FOR PNEUMONIA, SEPSIS, ACUTE RENAL FAILURE, DEHYDRATION, LLE CELLULITIS, HYPOKALEMIA, GENERALIZED WEAKNESS, AND NAUSEA/VOMITING. RENAL FAILURE HAS RESOLVED. TODAY, HE IS ALERT AND ORIENTED, LYING IN BED ON MORNING ROUNDS. HE CONTINUES WITH COMPLAINTS OF GENERALIZED WEAKNESS, BILATERAL LOWER EXTREMITY WEAKNESS, AND SHORNESS OF BREATH. ON EXAMINATION, HEART IS REGULAR IN RATE AND RHYTHM. BILATERAL LUNGS ARE NOTED TO HAVE DIMINISHED LUNG SOUNDS THROUGHOUT. ABDOMEN IS ROUND, SOFT, AND NON-TENDER WITH NORMAL BOWEL SOUNDS NOTED IN ALL QUADRANTS. BLE ARE NOTED TO HAVE TRACE EDEMA. HIS VITALS THIS MORNING ARE: 98.0-97-22-96%-181/82. LABS WERE OBTAINED. ABNORMAL LAB VALUES INCLUDE THE FOLLOWING: RBC 2.62, HGB 8.5, HCT 24.3, CREATININE 1.32, GLUCOSE 275, TOTAL PROTEIN 6.3, ALBUMIN 2.4. BLOOD CULTURES REVEALED GROWTH OF STREP PYOGENES (GROUP A). REPEAT BLOOD CULTURES WERE OBTAINED. A SPUTUM CULTURE IS ALSO PENDING. CHEST XRAY OBTAINED AND REVEALED: Haziness in the right lung base may represent residual infiltrate unchanged in appearance from the prior examination. Increased density retrocardiac area left lower lobe obscuring the medial left hemidiaphragm. This could represent atelectasis or infiltrate. PHYSICAL THERAPY REPORTS THAT PATIENT WAS ONLY ABLE TO PARTICIPATE IN EXERCISES WHILE IN THE BED OR CHAIR YESTERDAY. HE REQUIRED MODERATE ASSISTANCE FOR TRANSFER TO CHAIR. HE WAS NOT ABLE TO BEAR WEIGHT ON LEGS DUE TO SEVERE BILATERAL KNEE PAIN WHEN STANDING. WE ENCOURAGED PATIENT TO BE AGGRESSIVE WITH PHYSICAL THERAPY. WE DISCUSSED THE POSSIBILITY OF A SHORT TERM REHAB STAY AT THE [facility] IF NO IMPROVEMENT SOON. HE IS CURRENTLY RECEIVING NORMAL SALINE WITH 40MEQ KCL AT 75 ML/HR, ZOSYN 3.375G IV TID, LEVAQUIN 500MG IV DAILY, DUONEBS Q4H, PULMICORT NEBS BID, ALBUMIN 25% IV DAILY, HUMULIN R SLIDING SCALE, OTBS ACHS, PEPCID 20MG IV BID, PROTONIX 40MG IV BID, AND HIS HOME MEDICATIONS OF ECOTRIN 81MG, XARELTO 10MG PO DAILY, LIPITOR, CARDIZEM, DILAUDID, SYNTHROID, HEMOCYTE PLUS, AND ZOCOR WERE RESUMED. WE WILL CONTINUE WITH CURRENT PLAN OF CARE TODAY. PHYSICAL THERAPY WILL WORK WITH PATIENT ON ATTEMPTING TO AMBULATE. OTHERWISE, WE WILL FOLLOW UP WITH AM LABS AND CHEST XRAY AND CONTINUE TO MONITOR. TIME SPENT ON CLINICAL ASSESSMENT, REVIEWING LABS AND IMAGING, DECISION MAKING, AND DOCUMENTATION WAS GREATER THAN 45 MINUTES. - Past Medical Family Social History Past Med/Fam/Surg Hx: No changes since H&P Allergies: Allergies pseudoephedrine Allergy (Verified 11/23/20 17:33) - Review of Systems ROS: No change since H&P - Vital Signs and I&O's Vital Signs: Temperature 98.0 F Pulse Rate [Brachial] 97 Pulse Rate 102 Respiratory Rate 22 Blood Pressure [Left Arm] 172/101 O2 Sat by Pulse Oximetry 94 Intake and Output: Intake & Output 11/29/20 11/30/20 12/01/20 12/02/20 11:59 11:59 11:59 11:59 Intake Total 3110 / 3110 3050 / 3050 2755 / 2755 3389 / 3389 Output Total 4000 / 4000 4000 / 4000 3475 / 3475 3500 / 3500 Balance -890 / -890 -950 / -950 -720 / -720 -111 / -111 - Physical Exam Oriented: Normal Eyes: Normal Ear: Normal Nose: Normal Throat: Normal Respiratory: Generalized, Diminished Cardiovascular: Normal, Edema : Normal Auscultation: Bowel Sounds: Normal Tenderness: Normal Skin: Normal Musculoskeletal: Right, Left, Knee (slightly warm, swelling noted, no erythema, surgical scar present, limited ROM due to leg weakness), Leg, Back:Thoracic, Back:Lumbar, Swelling, Tender Psychiatric: Normal Mood Description: Calm Affect: Normal Speech Pattern: Clear, Appropriate - Laboratory and Diagnostics Result Diagrams: 12/02/20 04:32 12/02/20 04:32 Labs: 12/01/20 17:45 Sputum - Expectorated Sputum Sputum Culture - Preliminary 12/01/20 17:45 Sputum - Expectorated Sputum - Final 11/23/20 16:25 Blood Blood Culture - Final 11/23/20 16:15 Blood Blood Culture - Final Strep Pyogenes (Grp A) 11/24/20 07:00 Stool Stool Culture - Final 11/24/20 07:00 Stool - Final 11/24/20 14:30 Urine,Clean Catch Urine Culture - Final Laboratory WBC 5.7 X10^3/uL (3.6-10.0) 12/02/20 04:32 RBC 2.62 X10^6/uL (4.7-6.0) L 12/02/20 04:32 Hgb 8.5 g/dL (13.5-18.0) L 12/02/20 04:32 Hct 24.3 % (42.0-54.0) L 12/02/20 04:32 MCV 92.9 fL (80.0-100.0) 12/02/20 04:32 MCH 32.6 pg (27.0-34.0) 12/02/20 04:32 MCHC 35.1 g/dL (33.0-35.0) H 12/02/20 04:32 RDW 15.1 % (11.6-16.5) 12/02/20 04:32 Plt Count 157 X10^3/uL (150.0-450.0) 12/02/20 04:32 Plt Count Comment Decreased (ADEQUATE) 11/28/20 05:13 MPV 9.4 fL (7.4-11.0) 12/02/20 04:32 Neut % (Auto) 79.2 % (42.0-75.0) H 12/02/20 04:32 Lymph % (Auto) 10.5 % (21.0-51.0) L 12/02/20 04:32 [place] % (Auto) 9.4 % (0.0-13.0) 12/02/20 04:32 Eos % (Auto) 0.5 % (0.9-2.9) L 12/02/20 04:32 Baso % (Auto) 0.4 % (0.2-1.0) 12/02/20 04:32 Neut # (Auto) 4.5 x10^3/uL (2.2-4.8) 12/02/20 04:32 Lymph # (Auto) 0.6 X10^3/uL (1.3-2.9) L 12/02/20 04:32 [place] # (Auto) 0.5 x10^3/uL (0.3-0.8) 12/02/20 04:32 Eos # (Auto) 0.0 x10^3/uL (0.0-0.2) 12/02/20 04:32 Baso # (Auto) 0.0 X10^3/uL (0.0-0.1) 12/02/20 04:32 Absolute Nucleated RBC 0.1 /100WBC 12/02/20 04:32 Total Counted 100 11/28/20 05:13 Neutrophils % (Manual) 79 % (39-76) H 11/28/20 05:13 Band Neutrophils % 1 % (0-10) 11/28/20 05:13 Lymphocytes % (Manual) 11 % (13-43) L 11/28/20 05:13 Monocytes % (Manual) 9 % (4-9) 11/28/20 05:13 Plt Morphology Comment Normal (NORMAL) 11/28/20 05:13 RBC Morphology Normal (NORMAL) 11/28/20 05:13 D-Dimer 5.55 ug/ml (0.0-0.57) H* 11/24/20 09:16 Sodium 140 mmol/L (136-145) 12/02/20 04:32 Corrected Sodium 144 mmol/L (136-145) 12/02/20 04:32 Potassium 5.0 mmol/L (3.5-5.1) 12/02/20 04:32 Chloride 107 mmol/L (98-107) 12/02/20 04:32 Carbon Dioxide 26.3 mmol/L (21-32) 12/02/20 04:32 BUN 16 mg/dL (7-18) 12/02/20 04:32 Creatinine 1.32 mg/dL (0.70-1.30) H 12/02/20 04:32 Est GFR (MDRD) Af Amer > 60 (>60) 12/02/20 04:32 Est GFR (MDRD) Non-Af 56 (>60) L 12/02/20 04:32 Glucose 275 mg/dL (65-99) H 12/02/20 04:32 POC Glucose (mg/dL) 256 mg/dL (65-99) H 12/02/20 05:48 Lactic Acid 2.5 mmol/L (0.4-2.0) H 11/24/20 05:57 Uric Acid 7.9 mg/dL (3.5-7.2) H 11/25/20 04:25 Calcium 8.5 mg/dL (8.5-10.1) 12/02/20 04:32 Corrected Calcium 9.8 mg/dL (8.5-10.1) 12/02/20 04:32 Magnesium 2.1 mg/dL (1.7-2.9) 11/30/20 05:10 Total Bilirubin 1.00 mg/dL (0.2-1.0) 12/02/20 04:32 AST 20 Units/L (15-37) 12/02/20 04:32 ALT 13 Units/L (12-78) 12/02/20 04:32 Alkaline Phosphatase 81 Units/L (46-116) 12/02/20 04:32 Creatine Kinase 56 Units/L (39-308) 11/23/20 16:15 CK-MB (CK-2) < 1.0 ng/mL (0-4.0) 11/23/20 16:15 CK/CKMB % Calc 1.8 % (<4) 11/23/20 16:15 Troponin I < 0.02 ng/mL (0-1.5) 11/23/20 16:15 B-Natriuretic Peptide 934 pg/mL (0-79) H* 11/29/20 04:53 Total Protein 6.3 g/dL (6.4-8.2) L 12/02/20 04:32 Albumin 2.4 g/dL (3.4-5.0) L 12/02/20 04:32 Globulin 3.9 g/dL (2.5-4.5) 12/02/20 04:32 Albumin/Globulin Ratio 0.6 Ratio (1.1-2.1) L 12/02/20 04:32 Specimen Type Catherized urine 11/25/20 10:20 Urine Color Yellow (YELLOW) 11/25/20 10:20 Urine Appearance Clear (CLEAR) 11/25/20 10:20 Urine pH 5.0 (5.0 - 8.0) 11/25/20 10:20 Ur Specific [place] 1.020 (1.000-1.030) 11/25/20 10:20 Urine Protein 2+ (NEGATIVE) 11/25/20 10:20 Urine Glucose (UA) Negative (NEGATIVE) 11/25/20 10:20 Urine Ketones Negative (NEGATIVE) 11/25/20 10:20 Urine Occult Blood 2+ (NEGATIVE) 11/25/20 10:20 Urine Nitrite Negative (NEGATIVE) 11/25/20 10:20 Urine Bilirubin Negative (NEGATIVE) 11/25/20 10:20 Urine Urobilinogen Normal (NORMAL) 11/25/20 10:20 Ur Leukocyte Esterase Negative (NEGATIVE) 11/25/20 10:20 Urine RBC 3-5 /HPF (0-3) A 11/25/20 10:20 Urine WBC 0-2 /HPF (0-5) 11/25/20 10:20 Ur Squamous Epith Cells Few /HPF (NEGATIVE) 11/25/20 10:20 Amorphous Sediment 2+ /HPF (NEGATIVE) 11/25/20 10:20 Urine Bacteria Trace /HPF (NEGATIVE) 11/25/20 10:20 Ur Culture Indicated? No/not indicated 11/25/20 10:20 Stool Description 30 grams loose dark 11/27/20 14:00 Stl Occult Blood (IFOB) Negative (NEGATIVE) 11/27/20 14:00 Stool for White Cells Positive (NEGATIVE) A 11/24/20 07:00 Stl C. diff Tox B Gene Negative (NEGATIVE) 11/24/20 07:00 Stl C. diff [id number] Presumptive negative (NEGATIVE) 11/24/20 07:00 Vancomycin Trough 2.7 ug/mL (15-20) L 12/01/20 11:52 Random Vancomycin 12.8 ug/mL 11/27/20 04:29 - Plan (1) Pneumonia Status: Acute Qualifiers: Pneumonia type: due to unspecified organism Laterality: right Lung location: unspecified part of lung Qualified Code(s): J18.9 - Pneumonia, unspecified organism Plan: NORMAL SALINE WITH 40MEQ KCL AT 75 ML/HR, ZOSYN 3.375G IV TID, LEVAQUIN 500MG IV DAILY, DUONEBS Q4H, PULMICORT NEBS BID, ALBUMIN 25% IV DAILY, HUMULIN R SLIDING SCALE, OTBS ACHS, PEPCID 20MG IV BID, PROTONIX 40MG IV BID, AND HIS HOME MEDICATIONS OF ECOTRIN 81MG, XARELTO 10MG PO DAILY, LIPITOR, CARDIZEM, DILAUDID, SYNTHROID, HEMOCYTE PLUS, AND ZOCOR WERE RESUMED. (2) Acute renal failure Status: Acute Qualifiers: Acute renal failure type: unspecified Qualified Code(s): N17.9 - Acute kidney failure, unspecified Plan: NORMAL SALINE WITH KCL AT 150 ML/HR, ZOSYN 3.375G IV TID, LEVAQUIN 250MG IV Q48H, VANCOMYCIN, PEPCID IV BID, PROTONIX IV BID, HUMULIN R SLIDING SCALE, OTBS ACHS, XARELTO 10MG PO DAILY, AND HIS HOME MEDICATIONS OF ECOTRIN 81MG, LIPITOR, CARDIZEM, DILAUDID, SYNTHROID, HEMOCYTE PLUS, AND ZOCOR WERE RESUMED. (3) Sepsis Status: Acute Qualifiers: Sepsis type: Streptococcus group A Sepsis acute organ dysfunction status: with acute organ dysfunction Severe sepsis acute organ dysfunction type: acute renal failure Acute renal failure type: unspecified Severe sepsis shock status: unspecified Qualified Code(s): A40.0 - Sepsis due to streptococcus, group A; R65.20 - Severe sepsis without septic shock; N17.9 - Acute kidney failure, unspecified (4) Lower extremity cellulitis Status: Acute Qualifiers: Laterality: left Qualified Code(s): L03.116 - Cellulitis of left lower limb (5) Dehydration Status: Acute (6) Hypokalemia Status: Acute (7) Nausea and vomiting Status: Acute Qualifiers: Vomiting type: unspecified Vomiting Intractability: non-intractable Qualified Code(s): R11.2 - Nausea with vomiting, unspecified (8) Generalized weakness Status: Acute
[2020-12-02] MEDS ORDERED: APRESOLINE TAB 25 MG PO ONE (18:07)
[2020-12-02] MEDS ORDERED: APRESOLINE TAB 25 MG ONE (18:12)
[2020-12-02] MEDS: LIPITOR TAB 40 MG PO SCH (21:06)
[2020-12-02] MEDS: FLOMAX PO SCH (21:06)
[2020-12-02] MEDS: COZAAR PO SCH (21:06)
[2020-12-02] MEDS: SNACK - Diabetic Appropriate PO SCH ×2 (21:08→22:53)
[2020-12-03] MEDS: DUONEB 0.5 MG/3 MG (3 mL) NEB SCH ×6 (01:30→20:27)
[2020-12-03 05:19] LABS: BASOPHILS % (AUTO) 0.5 % (0.2-1.0); EOSINOPHILS % (AUTO) 0.7 % (0.9-2.9); HEMOGLOBIN 8.4 g/dL (13.5-18.0); LYMPHOCYTES # (AUTO) 0.7 X10^3/uL (1.3-2.9); LYMPHOCYTES % (AUTO) 11.8 % (21.0-51.0); MEAN CORPUSCULAR HEMOGLOBIN 32.9 pg (27.0-34.0); MEAN CORPUSCULAR HGB CONC 35.2 g/dL (33.0-35.0); MEAN CORPUSCULAR VOLUME 93.4 fL (80.0-100.0); MEAN PLATELET VOLUME 9.4 fL (7.4-11.0); MONOCYTES # (AUTO) 0.6 x10^3/uL (0.3-0.8); MONOCYTES % (AUTO) 10.6 % (0.0-13.0); NEUTROPHILS # (AUTO) 4.3 x10^3/uL (2.2-4.8); NEUTROPHILS % (AUTO) 76.4 % (42.0-75.0); PLATELET COUNT 189 X10^3/uL (150.0-450.0); RED BLOOD COUNT 2.57 X10^6/uL (4.7-6.0); RED CELL DISTRIBUTION WIDTH 15.1 % (11.6-16.5); WHITE BLOOD COUNT 5.6 X10^3/uL (3.6-10.0)
[2020-12-03 05:29] LABS: ALANINE AMINOTRANSFERASE 15 Units/L (12-78); ALBUMIN 2.5 g/dL (3.4-5.0); ALKALINE PHOSPHATASE 82 Units/L (46-116); ASPARTATE AMINO TRANSFERASE 25 Units/L (15-37); BLOOD UREA NITROGEN 18 mg/dL (7-18); CALCIUM 8.6 mg/dL (8.5-10.1); CARBON DIOXIDE 25.1 mmol/L (21-32); CHLORIDE 108 mmol/L (98-107); COR CA(FOR HYPOALB) 9.8 mg/dL (8.5-10.1); COR NA(FOR HYPERGLY) 142 mmol/L (136-145); CREATININE 1.32 mg/dL (0.70-1.30); SODIUM 139 mmol/L (136-145); TOTAL PROTEIN 6.4 g/dL (6.4-8.2); eGFR NON BLACK RACES 56 (>60)
[2020-12-03] MEDS: APRESOLINE TAB 25 MG PO SCH ×3 (05:50→21:23)
[2020-12-03] MEDS: SYNTHROID 50 mcg TAB PO SCH (05:51)
[2020-12-03] MEDS: HumuLIN R SUBCUT PRN ×4 (05:52→22:06)
--- NOTE | 2020-12-03 06:28 | RAD ---
HISTORYsobSTUDYCHEST, 1 VIEWCOMPARISONOne day prior.TECHNIQUEAP view of the chestFINDINGSStatus post median sternotomy.The cardiac and mediastinal contours appear stable. Stable left worse than right base airspace opacities. Blunted costophrenic sulci suspicious for small pleural effusions. No pneumothorax.IMPRESSIONNo significant change. Stable bibasilar airspace opacities that may represent pneumonia. Suspect small pleural effusions.Electronically signed by: Campbell Thakur (Dec 03, 2020 06:26:08)
[2020-12-03] MEDS: NS + KCL 40 MEQ/L 1,000 ML IV SCH ×3 (07:18→23:45)
[2020-12-03] MEDS: PULMICORT NEB TX 0.5 MG NEB SCH ×2 (08:50→20:27)
[2020-12-03] MEDS: ZOSYN VIAL 3.375 GRAMS 3.375 G in NS 50 ML IV + SPIKE MINIBAG* 50 ML IV SCH (08:52)
[2020-12-03] MEDS: ALBUMIN HUMAN 25%- 100 ML 100 ML IV SCH (08:52)
[2020-12-03] MEDS: PEPCID 20 MG IV PREMIX* 20 MG/50 ML BAG IV SCH (08:53)
[2020-12-03] MEDS: LEVAQUIN PREMIX IV 500 MG 500 MG/100 ML BAG IV SCH (08:57)
[2020-12-03] MEDS: K-DUR TAB 20 MEQ PO SCH ×2 (08:58→21:20)
[2020-12-03] MEDS: XARELTO PO SCH (08:58)
[2020-12-03] MEDS: PROTONIX INJ 40 MG VIAL IVP SCH ×2 (08:58→21:26)
[2020-12-03] MEDS: HEMOCYTE-PLUS PO SCH (08:59)
[2020-12-03] MEDS: ASPIRIN EC 81 MG PO SCH (08:59)
[2020-12-03] MEDS: CARDIZEM CD 240 MG 24-HR PO SCH ×2 (08:59→21:24)
[2020-12-03] MEDS: VITAMIN D3 125 mcg (5,000 UNITS) PO SCH (08:59)
[2020-12-03] MEDS ORDERED: LASIX IVP ONE (09:08)
[2020-12-03] MEDS ORDERED: NS + KCL 40 MEQ/L 1,000 ML IV SCH (11:00)
[2020-12-03] MEDS ORDERED: NS 1/2 1000 ML IV 1,000 ML IV SCH (20:00)
[2020-12-03] MEDS ORDERED: NS 1/2 1000 ML IV 1,000 ML IV ONE (20:25)
[2020-12-03] MEDS: COZAAR PO SCH (21:22)
[2020-12-03] MEDS: LIPITOR TAB 40 MG PO SCH (21:22)
[2020-12-03] MEDS: FLOMAX PO SCH (21:23)
[2020-12-03] MEDS: SNACK - Diabetic Appropriate PO SCH (21:51)
[2020-12-04] MEDS: DUONEB 0.5 MG/3 MG (3 mL) NEB SCH ×3 (00:55→08:53)
[2020-12-04] MEDS: APRESOLINE TAB 25 MG PO SCH ×2 (05:21→14:23)
[2020-12-04 05:22] LABS: BASOPHILS % (AUTO) 0.5 % (0.2-1.0); EOSINOPHILS # (AUTO) 0.1 x10^3/uL (0.0-0.2); EOSINOPHILS % (AUTO) 1.8 % (0.9-2.9); HEMATOCRIT 24.2 % (42.0-54.0); HEMOGLOBIN 8.4 g/dL (13.5-18.0); LYMPHOCYTES # (AUTO) 0.9 X10^3/uL (1.3-2.9); MEAN CORPUSCULAR HEMOGLOBIN 32.4 pg (27.0-34.0); MEAN CORPUSCULAR HGB CONC 34.7 g/dL (33.0-35.0); MEAN CORPUSCULAR VOLUME 93.3 fL (80.0-100.0); MEAN PLATELET VOLUME 9.1 fL (7.4-11.0); MONOCYTES # (AUTO) 0.6 x10^3/uL (0.3-0.8); MONOCYTES % (AUTO) 10.4 % (0.0-13.0); NEUTROPHILS # (AUTO) 4.2 x10^3/uL (2.2-4.8); NEUTROPHILS % (AUTO) 71.3 % (42.0-75.0); PLATELET COUNT 208 X10^3/uL (150.0-450.0); RED BLOOD COUNT 2.59 X10^6/uL (4.7-6.0); WHITE BLOOD COUNT 5.9 X10^3/uL (3.6-10.0)
[2020-12-04] MEDS: SYNTHROID 50 mcg TAB PO SCH (05:30)
[2020-12-04 05:42] LABS: ALANINE AMINOTRANSFERASE 16 Units/L (12-78); ALBUMIN 2.6 g/dL (3.4-5.0); ALKALINE PHOSPHATASE 69 Units/L (46-116); ASPARTATE AMINO TRANSFERASE 30 Units/L (15-37); BLOOD UREA NITROGEN 18 mg/dL (7-18); CALCIUM 8.6 mg/dL (8.5-10.1); CARBON DIOXIDE 23.9 mmol/L (21-32); CHLORIDE 105 mmol/L (98-107); COR CA(FOR HYPOALB) 9.7 mg/dL (8.5-10.1); COR NA(FOR HYPERGLY) 140 mmol/L (136-145); CREATININE 1.44 mg/dL (0.70-1.30); SODIUM 137 mmol/L (136-145); TOTAL PROTEIN 6.6 g/dL (6.4-8.2); eGFR NON BLACK RACES 51 (>60)
[2020-12-04] MEDS: HumuLIN R SUBCUT PRN ×2 (05:47→11:15)
--- NOTE | 2020-12-04 05:49 | RAD ---
PROCEDURE: Chest X-ray 1 View .HISTORY: Dyspnea.TECHNIQUE: AP view .COMPARISON: 12/03/2020.TECHNICAL QUALITY: Satisfactory .FINDINGS:Normal size heart with previous sternotomy.Mediastinum and hilar regions show no masses or lymphadenopathy .Normal central vascularity .Continued mild consolidation lung bases with possible small effusions.No acute bony abnormality .IMPRESSION:Unchanged chest.Electronically signed by: Conrad Castillo (Dec 04, 2020 05:46:24)
[2020-12-04] MEDS: PULMICORT NEB TX 0.5 MG NEB SCH (08:53)
[2020-12-04] MEDS ORDERED: LASIX IVP SCH (09:00)
[2020-12-04] MEDS ORDERED: K-DUR TAB 20 MEQ PO SCH (09:00)
[2020-12-04] MEDS: LEVAQUIN PREMIX IV 500 MG 500 MG/100 ML BAG IV SCH (09:17)
[2020-12-04] MEDS: PEPCID 20 MG IV PREMIX* 20 MG/50 ML BAG IV SCH (09:17)
[2020-12-04] MEDS: PROTONIX INJ 40 MG VIAL IVP SCH (09:18)
[2020-12-04] MEDS: ALBUMIN HUMAN 25%- 100 ML 100 ML IV SCH (09:18)
[2020-12-04] MEDS: XARELTO PO SCH (09:19)
[2020-12-04] MEDS: VITAMIN D3 125 mcg (5,000 UNITS) PO SCH (09:19)
[2020-12-04] MEDS: CARDIZEM CD 240 MG 24-HR PO SCH (09:19)
[2020-12-04] MEDS: ASPIRIN EC 81 MG PO SCH (09:19)
[2020-12-04] MEDS: HEMOCYTE-PLUS PO SCH (09:19)
[2020-12-04 13:12] VITALS: BP 177/78
== END 2020-12-04 14:35 | DRG 871 ==
LOC: MED/SURG → OBSVTOIN 15:30
PROVIDERS: ADMIT Internal Medicine; ATTEND Internal Medicine
DX: R11.2 Nausea with vomiting, unspecified; M25.562 Pain in left knee; N17.8 Other acute kidney failure; R53.1 Weakness; R65.20 Severe sepsis without septic shock; E11.65 Type 2 diabetes mellitus with hyperglycemia; J15.211 Pneumonia due to Methicillin susceptible Staphylococcus aureus; R06.02 Shortness of breath; L03.116 Cellulitis of left lower limb; A40.0 Sepsis due to streptococcus, group A; E86.0 Dehydration; E87.6 Hypokalemia; I25.10 Atherosclerotic heart disease of native coronary artery without angina pectoris

== ENCOUNTER 2021-07-06 11:37 | Inpatient (IN) ==
--- NOTE | 2021-07-06 11:54 | DR.WEAKNES ---
HPI Time Seen Time Seen by Provider: 07/06/21 11:53 Complaints Chief Complaint Doctors Comments: 75 y/o male presents for evaluation. Awoke this am, around 0600, with headache, weakness, difficulty with speech. Symptoms are currently doing better. No h/o TIAs/CVAs in the past. Has a distant h/o CABG, is on Xarelto. No headache or pain at the present time. Denies visual issues, URI symptoms, GI/ symptoms. No fever/chills. Does have a h/o cardiac issues, h/o sepsis in the past. Reviewed Nurses Notes Reviewed: Yes Source History Provided: Patient Mode of Arrival Mode of Arrival: Ambulatory Timing Since onset, symptoms are:: Improved and Resolved Symptom Onset: Unknown (awoke with symptoms.) Context Onset: While asleep Stroke Symptoms: Acute confusion and Slurring PMH PMH Past Medical History: Arthritis, Coronary Artery Disease, Diabetes, Dyslipidemia, Hypertension, Hypothyroidism and Kidney Stones Past Surgical History: Yes Surgical History: CABG/Valve Surgery and Ortho Surgery Family History Family Medical History: ID and Hypertension Social History Do you use any recreational Drugs:: No ROS Review of Systems Constitutional: No Symptoms Reported Eyes: No Symptoms Reported ENTM: No Symptoms Reported Respiratoy: No Symptoms Reported Cardiovascular: No Symptoms Reported Gastrointestinal/Abdominal: No Symptoms Reported Genitourinary: No Symptoms Reported Neurological: Weakness and Speech Problem Musculoskeletal: No Symptoms Reported Integumentary: No Symptoms Reported Hematologic/Lymphatic: No Symptoms Reported Psychiatric: No Symptoms Reported All Other Systems: Reviewed and Negative PE Vital Signs Vitals: Temperature 97.1 F Pulse Rate 125 Respiratory Rate 32 Blood Pressure [Right Arm] 177/78 Blood Pressure 188/94 O2 Sat by Pulse Oximetry 95 General Limitations: No Limitations General Appearance: Alert and In No Apparent Distress Head Head Exam: Normal Inspection Eyes Eye exam: Normal Appearance, PERRL and EOMI ENT ENT Exam: Normal Exam and Mucous Membranes Moist Neck Neck Exam: Normal Inspection and Full ROM Respiratory Respiratory Exam: Normal Lung Sounds Bilat; negative Accessory Muscle Use and Respiratory Distress Respiratory Exam: Bilateral: Clear to Auscultation Cardiovascular Cardiovascular Exam: Irregular Rhythm and Normal Heart Sounds Abdominal Exam Abdominal Exam: Normal Inspection, Normal Bowel Sounds and Soft; negative Tenderness Extremities Extremities Exam: Normal Inspection and Full ROM; negative Edema Back Back Exam: Normal Inspection Neurologic Neurological Exam: Alert, Oriented X3 and CN II-XII Intact; negative Motor Sensory Deficit Psychiatric Psychiatric Exam: Normal Affect Skin Skin Exam: Warm and Dry MDM Differential Diagnosis Differential Diagnosis: CVA, Electrolyte Disorder and TIA COURSE Treatment Treatment: 75 y/o male had CVA symptoms this am on awakening. Symptoms currently resolved. PE benign. W/u initiated. Our CT scanner down, with transport to another facility for CT scan, and have pt returned. Pt with atrial fibrillation in the past, was cardioverted to sinus rhythym. Pt is on Xarelto. 7 - awaiting results of CT scan. Discussed with his attending, Dr Carey, with admit for observation. Pt's BP was elevated prior to transfer for CT scan, was given IV diltiazem, 10 mg. On return to our ER, even higher. Will give IV hydralazine. Still with HTN, afib, given additional diltiazem, 20 mg bolus. ROR Labs Reviewed Laboratory Results Reviewed?: Yes Result Diagrams: 07/06/21 12:25 07/06/21 12:25 Laboratory: WBC 5.2 X10^3/uL (3.6-10.0) 07/06/21 12:25 RBC 4.00 X10^6/uL (4.7-6.0) L 07/06/21 12:25 Hgb 12.7 g/dL (13.5-18.0) L 07/06/21 12:25 Hct 37.1 % (42.0-54.0) L 07/06/21 12:25 MCV 92.6 fL (80.0-100.0) 07/06/21 12:25 MCH 31.7 pg (27.0-34.0) 07/06/21 12:25 MCHC 34.2 g/dL (33.0-35.0) 07/06/21 12:25 RDW 15.6 % (11.6-16.5) 07/06/21 12:25 Plt Count 138 X10^3/uL (150.0-450.0) L 07/06/21 12:25 MPV 8.5 fL (7.4-11.0) 07/06/21 12:25 Neut % (Auto) 71.9 % (42.0-75.0) 07/06/21 12:25 Lymph % (Auto) 16.0 % (21.0-51.0) L 07/06/21 12:25 Day % (Auto) 10.8 % (0.0-13.0) 07/06/21 12:25 Eos % (Auto) 0.9 % (0.9-2.9) 07/06/21 12:25 Baso % (Auto) 0.4 % (0.2-1.0) 07/06/21 12:25 Neut # (Auto) 3.7 x10^3/uL (2.2-4.8) 07/06/21 12:25 Lymph # (Auto) 0.8 X10^3/uL (1.3-2.9) L 07/06/21 12:25 Day # (Auto) 0.6 x10^3/uL (0.3-0.8) 07/06/21 12:25 Eos # (Auto) 0.0 x10^3/uL (0.0-0.2) 07/06/21 12:25 Baso # (Auto) 0.0 X10^3/uL (0.0-0.1) 07/06/21 12:25 Absolute Nucleated RBC 0.0 /100WBC 07/06/21 12:25 PT 30.7 SECONDS (11.8-14.3) 07/06/21 12:25 INR Target Range - 07/06/21 12:25 INR 3.12 (0.8-1.3) H 07/06/21 12:25 APTT 50.0 SECONDS (22.9-36.5) H 07/06/21 12:25 PTT Comment - 07/06/21 12:25 Sodium 142 mmol/L (136-145) 07/06/21 12:25 Corrected Sodium 145 mmol/L (136-145) 07/06/21 12:25 Potassium 3.8 mmol/L (3.5-5.1) 07/06/21 12:25 Chloride 106 mmol/L (98-107) 07/06/21 12:25 Carbon Dioxide 26.2 mmol/L (21-32) 07/06/21 12:25 BUN 13 mg/dL (7-18) 07/06/21 12:25 Creatinine 1.29 mg/dL (0.70-1.30) 07/06/21 12:25 Est GFR (MDRD) Af Amer > 60 (>60) 07/06/21 12:25 Est GFR (MDRD) Non-Af 58 (>60) L 07/06/21 12:25 Glucose 215 mg/dL (65-99) H 07/06/21 12:25 POC Glucose (mg/dL) 188 mg/dL (65-99) H 07/06/21 17:19 Calcium 8.4 mg/dL (8.5-10.1) L 07/06/21 12:25 Corrected Calcium TNP 07/06/21 12:25 Total Bilirubin 1.20 mg/dL (0.2-1.0) H 07/06/21 12:25 AST 46 Units/L (15-37) H 07/06/21 12:25 ALT 12 Units/L (12-78) 07/06/21 12:25 Alkaline Phosphatase 101 Units/L (46-116) 07/06/21 12:25 Creatine Kinase 49 Units/L (39-308) 07/06/21 12:25 CK-MB (CK-2) < 1.0 ng/mL (0-4.0) 07/06/21 12:25 CK/CKMB % Calc 2.0 % (<4) 07/06/21 12:25 Troponin I High Sens 24.0 ng/L (4.0-60.0) 07/06/21 12:25 Total Protein 6.8 g/dL (6.4-8.2) 07/06/21 12:25 Albumin 3.4 g/dL (3.4-5.0) 07/06/21 12:25 Globulin 3.4 g/dL (2.5-4.5) 07/06/21 12:25 Albumin/Globulin Ratio 1.0 Ratio (1.1-2.1) L 07/06/21 12:25 XRAY XRAY Interpreted by: Radiologist X-ray Results: CT head - small hypodense area of left puri radiata, unde terminate age, with scattered small vessel ishemic changes EKG Rate: 90 [place]: Normal Rhythm: Afib Block: None Hypertrophy: None ST: Nonsp Opioid Opioid Risk Tool Age ([place] if 16-45): No History of Preadolescent Sexual Abuse: No Total: 0 Total Score Risk Category: Low Risk Copyright: Nelson BARNES predicting aberrant behaviors Diagnosis Discharge Problem: Transient ischemic attack (TIA) Atrial fibrillation Qualifiers: Atrial fibrillation type: unspecified Qualified Code(s): I48.91 - Unspecified atrial fibrillation
[2021-07-06 12:33] LABS: BASOPHILS % (AUTO) 0.4 % (0.2-1.0); EOSINOPHILS % (AUTO) 0.9 % (0.9-2.9); HEMATOCRIT 37.1 % (42.0-54.0); HEMOGLOBIN 12.7 g/dL (13.5-18.0); LYMPHOCYTES # (AUTO) 0.8 X10^3/uL (1.3-2.9); MEAN CORPUSCULAR HEMOGLOBIN 31.7 pg (27.0-34.0); MEAN CORPUSCULAR HGB CONC 34.2 g/dL (33.0-35.0); MEAN CORPUSCULAR VOLUME 92.6 fL (80.0-100.0); MEAN PLATELET VOLUME 8.5 fL (7.4-11.0); MONOCYTES # (AUTO) 0.6 x10^3/uL (0.3-0.8); MONOCYTES % (AUTO) 10.8 % (0.0-13.0); NEUTROPHILS # (AUTO) 3.7 x10^3/uL (2.2-4.8); NEUTROPHILS % (AUTO) 71.9 % (42.0-75.0); RED CELL DISTRIBUTION WIDTH 15.6 % (11.6-16.5); WHITE BLOOD COUNT 5.2 X10^3/uL (3.6-10.0)
--- NOTE | 2021-07-06 12:37 | RAD ---
HISTORYHTN; DM SX: CABG/VALVE SURG; AKOSUA TKR; HERNIA REPAIR STROKE LIKE SYMPTOMS, WEAKNESSSTUDYCHEST, 1 VIEWCOMPARISONJuly 2020FINDINGSThe trachea is midline. The cardiac silhouette is stable as are changes from CABG procedure. The lungs are clear without focal infiltrate or effusion. The bony thorax is unremarkable.IMPRESSIONNo acute cardiopulmonary disease.Electronically signed by: CHAD MOSELEY (Jul 06, 2021 12:36:45)
[2021-07-06 12:57] LABS: ALANINE AMINOTRANSFERASE 12 Units/L (12-78); ALBUMIN 3.4 g/dL (3.4-5.0); ALKALINE PHOSPHATASE 101 Units/L (46-116); ASPARTATE AMINO TRANSFERASE 46 Units/L (15-37); BLOOD UREA NITROGEN 13 mg/dL (7-18); CALCIUM 8.4 mg/dL (8.5-10.1); CARBON DIOXIDE 26.2 mmol/L (21-32); CHLORIDE 106 mmol/L (98-107); COR NA(FOR HYPERGLY) 145 mmol/L (136-145); CREATINE KINASE 49 Units/L (39-308); CREATINE KINASE MB < 1.0 ng/mL (0-4.0); CREATININE 1.29 mg/dL (0.70-1.30); SODIUM 142 mmol/L (136-145); TOTAL PROTEIN 6.8 g/dL (6.4-8.2); eGFR NON BLACK RACES 58 (>60)
[2021-07-06] MEDS ORDERED: CARDIZEM INJ 50 MG VIAL IVP ONE ×2 (14:28→18:14)
[2021-07-06] MEDS ORDERED: CARDIZEM INJ 50 MG VIAL ONE (14:31)
[2021-07-06] MEDS ORDERED: NS 1,000 ML IV 1,000 ML ONE (14:35)
[2021-07-06] MEDS ORDERED: APRESOLINE INJ 20 MG VIAL IVP ONE (17:19)
[2021-07-06] MEDS ORDERED: APRESOLINE INJ 20 MG VIAL ONE (17:26)
[2021-07-06] MEDS ORDERED: CARDIZEM CD 240 MG 24-HR PO SCH (22:51)
[2021-07-06] MEDS: APRESOLINE TAB 25 MG PO SCH (23:27)
[2021-07-06] MEDS: FLOMAX PO SCH (23:29)
[2021-07-06] MEDS: COZAAR PO SCH (23:29)
[2021-07-06] MEDS: LANTUS SC SCH (23:30)
[2021-07-06] MEDS: LIPITOR TAB 40 MG PO SCH (23:30)
[2021-07-06] MEDS: PROTONIX TAB 40 MG PO SCH (23:30)
[2021-07-06] MEDS: [UNRECOGNIZED DRUG - OTHER] SC SCH (23:30)
[2021-07-06] MEDS: INSULIN LISPRO 100 UNIT/ML SC SCH (23:30)
[2021-07-06] MEDS: PEPCID TAB 40 MG PO SCH (23:30)
[2021-07-06] MEDS: SNACK - Diabetic Appropriate PO SCH (23:31)
[2021-07-07] MEDS: APRESOLINE TAB 25 MG PO SCH ×3 (05:48→21:41)
[2021-07-07] MEDS: INSULIN LISPRO 100 UNIT/ML SC SCH (05:48)
[2021-07-07] MEDS: [UNRECOGNIZED DRUG - OTHER] SC SCH (05:48)
[2021-07-07 06:15] VITALS: BMI 27.1
[2021-07-07] MEDS ORDERED: MODAFINIL 200 MG PO SCH (09:00)
[2021-07-07] MEDS: XARELTO PO SCH (09:56)
[2021-07-07] MEDS: CARDIZEM CD 240 MG 24-HR PO SCH (09:57)
[2021-07-07] MEDS: PEPCID TAB 40 MG PO SCH ×2 (09:58→21:40)
[2021-07-07] MEDS: PROTONIX TAB 40 MG PO SCH ×2 (09:58→21:40)
[2021-07-07] MEDS: SYNTHROID 50 mcg TAB PO SCH (09:58)
[2021-07-07] MEDS: HumaLOG SC SCH ×2 (15:00→21:41)
--- NOTE | 2021-07-07 16:45 | DR.H&P ---
H&P - History & Physical for Day of: H&P Date: 07/06/21 - Chief Complaint Chief Complaint: WEAKNESS, HEADACHE, DIFFICULTY WITH SPEECH - History of Present Illness History of Present Illness: CISCO IS A 76 YEAR OLD PATIENT OF OURS. HE PRESE NTED TO THE ER WITH COMPLAINTS OF HEADACHE, WEAKNESS, AND DIFFICULTY WITH SPEECH. SYMPTOMS STARTED UPON AWAKENING, AT APPROXIMATELY 0600 ON 07/06/21. UPON PRESENTATION TO THE ER, PATIENT WAS NOTED WITH SOME GENERALIZED WEAKNESS AND DID HAVE DIFFICULTY EXPRESSING WHAT HE WAS TRYING TO SAY. HE DENIES H/O TIA OR CVAs IN THE PAST. HE DOES HAVE PMH OF CABG, DM II, DYSLIPIDEMIA, HTN, HYPOTHYROIDISM, AND KIDNEY STONES. HE IS CURRENTLY ON XARELTO. ON ARRIVAL TO THE ER, HIS VITALS WERE: 97.1-100-17-95%-143/86. LABS WERE OBTAINED. WBC 5.2, RBC 4.00, HGB 12.37, HCT 37.1, PLT COUNT 138, INR 3.12, PTT 50.0, SODIUM 142, POTASSIUM 3.8, CHLORIDE 106, BUN 13, CREATININE 1.29, GLUCOSE 215, CALCIUM 8.4, TOTAL BILI 1.20, AST 46, TOTAL PROTEIN 6.8, ALBUMIN 3.4. CARDIAC ENZYMES WERE WITHIN NORMAL LIMITS. COVID-19 NEGATIVE. A CHEST XRAY WAS OBTAINED AND REVEALED: NO ACUTE CARDIOPULMONARY DISEASE. EKG REVEALED: ATRIAL FIBRILLATION WITH HR 90. A BRAIN CT WITHOUT CONTRAST WAS OBTAINED AND REVEALED: LOW DENSITY AREA IN THE LEFT KOO RADIATA OF UNCERTAIN AGE WHICH COULD REPRESENT A SUBACUTE INFARCT CORRELATION WITH MRI MAY BE OF BENEFIT. IN THE ER, HE WAS GIVEN CARDIZEM 10MG IV X 1 AT 14:42 DUE TO HR OF 115-120. HE WAS GIVEN AN ADDITIONAL DOSE OF 20MG AT 19:05 DUE TO HR OF 125. HR DECREASED TO 102 AFTER CARDIZEM BOLUS. HE WAS ADMITTED TO THE HOSPITAL FOR FURTHER EVALUATION AND TREATMENT OF A-FIB, SUSPECT ED CVA. HE WAS STARTED ON CARDIZEM CD 240MG PO DAILY, HYDRALAZINE 25MG PO TID, AND HIS HOME MEDICATIONS OF LIPITOR, PEPCID, LANTUS 43 UNITS SC HS, HUMALOG 12 UNITS SC TID, SYNTHROID, COZAAR, PROTONIX, XARELTO, AND FLOMAX WERE RESUMED. WE WILL OBTAIN A BRAIN MRI WITHOUT CONTRAST. OTHERWISE, WE PLAN TO FOLLOW UP WITH AM LABS AND CONTINUE TO MONITOR. TIME SPENT ON CLINICAL ASSESSMENT, REVIEWING LABS AND IMAGING, DECISION MAKING, AND DOCUMENTATION WAS GREATER THAN 75 MINUTES. - Past Medical History Past Medical History: Coronary Artery Disease, Hypertension, Dyslipidemia, Diabetes, Hypothyroidism, Arthritis, Kidney Stones - Past Surgical History Surgical History: CABG/Valve Surgery, Ortho Surgery, Other Additional Surgical History: BILATERAL TKA, HERNIA REPAIR - Family History Family Medical History: [place], Hypertension - Social History Does patient currently use any type of tobacco product: No Does any household member use tobacco: No Alcohol Use: None Drug Use: None - Medications Home Medications: pseudoephedrine Allergy (Verified 11/23/20 17:33) - Review of Systems Constitutional: Weakness Eyes: No Symptoms Reported ENT: No Symptoms Reported Respiratory: No Symptoms Reported Cardiovascular: No Symptoms Reported Gastrointestinal: No Symptoms Reported Genitourinary: No Symptoms Reported Musculoskeletal: No Symptoms Reported Skin: No Symptoms Reported Neurological: See HPI, Weakness, Change in Speech - Physical Exam Vital Signs: Temperature 98.7 F Pulse Rate [Brachial] 97 Pulse Rate 113 Respiratory Rate 28 Blood Pressure [Right Arm] 149/81 Blood Pressure 154/79 O2 Sat by Pulse Oximetry 94 Oriented: Normal Eyes: Normal Ear: Normal Nose: Normal Throat: Normal Respiratory: Diminished Throughout Cardiovascular: Tachycardia, Irregular : Normal Auscultation: Bowel Sounds: Normal Palpation: Normal Tenderness: Normal Skin: Normal Musculoskeletal: Normal Psychiatric: Normal Mood Description: Calm Affect: Normal Speech Pattern: Inappropriate - Assessment/Plan (1) Suspected cerebrovascular accident (CVA) Status: Acute Plan: ADMIT, OBTAIN BRAIN MRI, CARDIZEM CD 240MG PO DAILY, HYDRALAZINE 25MG PO TID, AND HIS HOME MEDICATIONS OF LIPITOR, PEPCID, LANTUS 43 UNITS SC HS, HUMALOG 12 UNITS SC TID, SYNTHROID, COZAAR, PROTONIX, XARELTO, AND FLOMAX WERE RESUMED. (2) Atrial fibrillation Qualifiers: Atrial fibrillation type: unspecified Qualified Code(s): I48.91 - Unspecified atrial fibrillation Status: Acute (3) Generalized weakness Status: Acute (4) Anemia, chronic renal failure Qualifiers: Chronic kidney disease stage: unspecified stage Qualified Code(s): N18.9 - Chronic kidney disease, unspecified; D63.1 - Anemia in chronic kidney disease Status: Acute (5) Hx of CABG Status: Acute (6) HTN (hypertension) Qualifiers: Hypertension type: primary hypertension Qualified Code(s): I10 - Essential (primary) hypertension Status: Acute (7) Diabetes mellitus Qualifiers: Diabetes mellitus type: type 2 Diabetes mellitus side laster insulin use: with [facility] use Diabetes mellitus complication status: with hyperglycemia Qualified Code(s): E11.65 - Type 2 diabetes mellitus with hyperglycemia; Z79.4 - snf (current) use of insulin Status: Acute (8) Dyslipidemia Status: Acute (9) Hypothyroidism Qualifiers: Hypothyroidism type: acquired Qualified Code(s): E03.9 - Hypothyroidism, unspecified Status: Acute - Allergies Allergies/Adverse Reactions: Allergies Allergy/AdvReac Type Severity Reaction Status Date / Time pseudoephedrine Allergy Verified 11/23/20 17:33
--- NOTE | 2021-07-07 17:36 | MRI ---
HISTORYWEAKNESS, SLURRED SPEECHSTUDYBRAIN W/O CONCOMPARISONCT yesterdayTECHNIQUEMultiplanar multi-sequence MRI of the brain was obtained utilizing standard departmental protocol. Sagittal and axial T1 weighted images were obtained. Axial T2 and flair weighted images were performed as well. Axial diffusion weighted and ADC trace mapping was performed.FINDINGSThe midline structures appear unremarkable. The evaluation of the brain parenchyma demonstrates no abnormal signal characteristics to suggest intraparenchymal mass or hemorrhage. No extra-axial fluid collections are observed. The ventricular system appears symmetric and nondilated. The CP angle is normal in its appearance without brainstem mass or evidence for acoustic neuroma. The flow voids on both T1 and T2 weighted imaging appear unremarkable. Evaluation of the diffusion weighted imaging does not demonstrate abnormal signal characteristics to suggest acute ischemic change. Scattered small vessel ischemic changes with an old area of encephalomalacia in the right parietal subcortical white matter lacunar infarct in the left coronal radiata are noted along with moderate cortical atrophy. The extracranial structures are unremarkable.IMPRESSIONChronic changes as above with no evidence for acute/subacute infarct.Electronically signed by: CHAD MOSELEY (Jul 07, 2021 17:35:17)
[2021-07-07] MEDS: SNACK - Diabetic Appropriate PO SCH (21:39)
[2021-07-07] MEDS: LIPITOR TAB 40 MG PO SCH (21:40)
[2021-07-07] MEDS: LANTUS SC SCH (21:40)
[2021-07-07] MEDS: FLOMAX PO SCH (21:40)
[2021-07-07] MEDS: COZAAR PO SCH (21:40)
[2021-07-08] MEDS: APRESOLINE TAB 25 MG PO SCH ×3 (05:33→22:21)
[2021-07-08] MEDS: HumaLOG SC SCH ×3 (05:33→22:26)
[2021-07-08 06:08] LABS: BASOPHILS % (AUTO) 0.2 % (0.2-1.0); EOSINOPHILS % (AUTO) 0.1 % (0.9-2.9); HEMATOCRIT 38.4 % (42.0-54.0); HEMOGLOBIN 13.1 g/dL (13.5-18.0); LYMPHOCYTES # (AUTO) 0.7 X10^3/uL (1.3-2.9); LYMPHOCYTES % (AUTO) 8.4 % (21.0-51.0); MEAN CORPUSCULAR HEMOGLOBIN 31.7 pg (27.0-34.0); MEAN CORPUSCULAR HGB CONC 34.2 g/dL (33.0-35.0); MEAN CORPUSCULAR VOLUME 92.8 fL (80.0-100.0); MEAN PLATELET VOLUME 9.3 fL (7.4-11.0); MONOCYTES # (AUTO) 0.8 x10^3/uL (0.3-0.8); MONOCYTES % (AUTO) 9.1 % (0.0-13.0); NEUTROPHILS # (AUTO) 7.3 x10^3/uL (2.2-4.8); NEUTROPHILS % (AUTO) 82.2 % (42.0-75.0); RED BLOOD COUNT 4.14 X10^6/uL (4.7-6.0); RED CELL DISTRIBUTION WIDTH 15.4 % (11.6-16.5); WHITE BLOOD COUNT 8.8 X10^3/uL (3.6-10.0)
[2021-07-08 06:15] LABS: ALANINE AMINOTRANSFERASE 8 Units/L (12-78); ALKALINE PHOSPHATASE 86 Units/L (46-116); ASPARTATE AMINO TRANSFERASE 17 Units/L (15-37); BLOOD UREA NITROGEN 15 mg/dL (7-18); CALCIUM 8.4 mg/dL (8.5-10.1); CARBON DIOXIDE 23.2 mmol/L (21-32); CHLORIDE 106 mmol/L (98-107); COR CA(FOR HYPOALB) 9.2 mg/dL (8.5-10.1); CREATININE 1.24 mg/dL (0.70-1.30); SODIUM 140 mmol/L (136-145); TOTAL PROTEIN 6.9 g/dL (6.4-8.2); eGFR NON BLACK RACES > 60 (>60)
[2021-07-08] MEDS ORDERED: MAGNESIUM SULFATE 1 GRAM/100 mL PREMIX 1 G/100 ML BAG IV PRN (06:51)
[2021-07-08] MEDS ORDERED: POTASSIUM CHL 60 MEQ/NS 0.45% 500 ML IV PRN (06:51)
[2021-07-08] MEDS ORDERED: KLOR-CON PO PRN (06:51)
[2021-07-08] MEDS ORDERED: POTASSIUM CHLORIDE LIQ 20 MEQ UDC PO PRN (06:51)
[2021-07-08] MEDS ORDERED: MICRO K EXTEN CAP 10 MEQ PO PRN (06:51)
[2021-07-08] MEDS ORDERED: POTASSIUM CHL 40 MEQ/NS 0.45% 500 ML IV PRN (06:51)
[2021-07-08] MEDS ORDERED: K-RIDER 10 MEQ/NS 100 ML 10 MEQ/100 ML BAG IV PRN (06:51)
[2021-07-08] MEDS: SYNTHROID 50 mcg TAB PO SCH (08:26)
[2021-07-08] MEDS: PEPCID TAB 40 MG PO SCH ×2 (08:26→22:22)
[2021-07-08] MEDS: CARDIZEM CD 240 MG 24-HR PO SCH (08:26)
[2021-07-08] MEDS: PROTONIX TAB 40 MG PO SCH ×2 (08:26→22:21)
[2021-07-08] MEDS: XARELTO PO SCH (08:26)
[2021-07-08] MEDS: K-DUR TAB 20 MEQ PO PRN (08:27)
[2021-07-08] MEDS: SNACK - Diabetic Appropriate PO SCH (20:22)
[2021-07-08] MEDS: COZAAR PO SCH (22:20)
[2021-07-08] MEDS: FLOMAX PO SCH (22:21)
[2021-07-08] MEDS: LIPITOR TAB 40 MG PO SCH (22:21)
[2021-07-08] MEDS: LANTUS SC SCH (22:25)
[2021-07-09 04:53] LABS: BASOPHILS % (AUTO) 0.2 % (0.2-1.0); EOSINOPHILS % (AUTO) 0.4 % (0.9-2.9); HEMATOCRIT 34.8 % (42.0-54.0); HEMOGLOBIN 11.9 g/dL (13.5-18.0); LYMPHOCYTES # (AUTO) 0.8 X10^3/uL (1.3-2.9); LYMPHOCYTES % (AUTO) 10.9 % (21.0-51.0); MEAN CORPUSCULAR HEMOGLOBIN 31.5 pg (27.0-34.0); MEAN CORPUSCULAR HGB CONC 34.2 g/dL (33.0-35.0); MEAN CORPUSCULAR VOLUME 92.1 fL (80.0-100.0); MEAN PLATELET VOLUME 9.2 fL (7.4-11.0); MONOCYTES # (AUTO) 0.6 x10^3/uL (0.3-0.8); MONOCYTES % (AUTO) 8.9 % (0.0-13.0); NEUTROPHILS # (AUTO) 5.6 x10^3/uL (2.2-4.8); NEUTROPHILS % (AUTO) 79.6 % (42.0-75.0); RED BLOOD COUNT 3.78 X10^6/uL (4.7-6.0); RED CELL DISTRIBUTION WIDTH 15.3 % (11.6-16.5); WHITE BLOOD COUNT 7.1 X10^3/uL (3.6-10.0)
[2021-07-09 05:18] LABS: ALBUMIN 2.6 g/dL (3.4-5.0); CALCIUM 8.1 mg/dL (8.5-10.1); CARBON DIOXIDE 21.7 mmol/L (21-32); COR CA(FOR HYPOALB) 9.2 mg/dL (8.5-10.1); CREATININE 1.59 mg/dL (0.70-1.30); TOTAL PROTEIN 6.6 g/dL (6.4-8.2)
[2021-07-09] MEDS: APRESOLINE TAB 25 MG PO SCH ×3 (05:22→21:31)
[2021-07-09] MEDS: HumaLOG SC SCH ×3 (05:23→22:11)
--- NOTE | 2021-07-09 08:29 | PCM.PROG ---
Progress Note - Progress Note for Day of Date of Exam: 07/07/21 - Subjective Subjective: WAS ADMITTED FOR A-FIB, WEAKNESS, RULE OUT CVA. TODAY, HE IS ALERT AND ORIENTED, LYING IN BED ON MORNING ROUNDS. HE CONTINUES WITH COMPLAINTS OF GENERALIZED WEAKNESS, AND DIFFICULTY EXPRESSING WHAT HE IS TRYING TO SAY. ON EXAMINATION, PUPILS PERRLA. HE IS TACHYCARDIC WITH HR 110-120. BILATERAL LUNGS NOTED WITH DIMINISHED LUNG SOUNDS THROUGHOUT. ABDOMEN IS ROUND, SOFT, AND NON-TENDER WITH NORMAL BOWEL SOUNDS NOTED IN ALL QUADRANTS. HIS VITALS THIS MORNING ARE: 98.3-112-20-95%-137/96. LABS WERE OBTAINED. ABNORMAL LAB VALUES INCLUDE THE FOLLOWING: RBC 4.14, HGB 13.1, HCT 38.4, PLT COUNT 147, POTASSIUM 3.3, CALCIUM 8.4, TOTAL BILI 1.40, ALT 8, ALBUMIN 3.0. HE IS CURRENTLY RECEIVING CARDIZEM CD 240MG PO DAILY, HYDRALAZINE 25MG PO TID, AND HIS HOME MEDICATIONS OF LIPITOR, PEPCID, LANTUS 43 UNITS SC HS, HUMALOG 12 UNITS SC TID, SYNTHROID, COZAAR, PROTONIX, XARELTO, AND FLOMAX WERE RESUMED. TODAY, WE WILL OBTAIN A BRAIN MRI TO RULE OUT CVA. WE WILL HAVE PHYSICAL THERAPY WORK WITH PATIENT. OTHERWISE, WE PLAN TO FOLLOW UP WITH AM LABS AND CONTINUE TO MONITOR. TIME SPENT ON CLINICAL ASSESSMENT, REVIEWING LABS AND IMAGING, DECISION MAKING, AND DOCUMENTATION GREATER THAN 45 MINUTES. - Past Medical Family Social History Past Med/Fam/Surg Hx: No changes since H&P Allergies: Allergies pseudoephedrine Allergy (Verified 11/23/20 17:33) - Review of Systems ROS: No change since H&P - Vital Signs and I&O's Vital Signs: Temperature 98 F Pulse Rate [Brachial] 96 Pulse Rate 113 Respiratory Rate 18 Blood Pressure [Right Arm] 123/70 Blood Pressure 154/79 O2 Sat by Pulse Oximetry 92 Intake and Output: Intake & Output 07/06/21 07/07/21 07/08/21 07/09/21 11:59 11:59 11:59 11:59 Intake Total 702 / 702 1020 / 1020 1287 / 1287 Output Total 250 / 250 325 / 325 Balance 452 / 452 695 / 695 1287 / 1287 - Physical Exam Oriented: Normal Eyes: Normal Ear: Normal Nose: Normal Throat: Normal Respiratory: Generalized, Diminished Cardiovascular: Tachycardia, Irregular : Normal Auscultation: Bowel Sounds: Normal Palpation: Normal Tenderness: Normal Skin: Normal Musculoskeletal: Normal Psychiatric: Normal Mood Description: Calm Affect: Normal Speech Pattern: Clear, Appropriate - Laboratory and Diagnostics Result Diagrams: 07/09/21 04:05 07/09/21 04:05 Labs: Laboratory WBC 7.1 X10^3/uL (3.6-10.0) 07/09/21 04:05 RBC 3.78 X10^6/uL (4.7-6.0) L 07/09/21 04:05 Hgb 11.9 g/dL (13.5-18.0) L 07/09/21 04:05 Hct 34.8 % (42.0-54.0) L 07/09/21 04:05 MCV 92.1 fL (80.0-100.0) 07/09/21 04:05 MCH 31.5 pg (27.0-34.0) 07/09/21 04:05 MCHC 34.2 g/dL (33.0-35.0) 07/09/21 04:05 RDW 15.3 % (11.6-16.5) 07/09/21 04:05 Plt Count 155 X10^3/uL (150.0-450.0) 07/09/21 04:05 MPV 9.2 fL (7.4-11.0) 07/09/21 04:05 Neut % (Auto) 79.6 % (42.0-75.0) H 07/09/21 04:05 Lymph % (Auto) 10.9 % (21.0-51.0) L 07/09/21 04:05 [place] % (Auto) 8.9 % (0.0-13.0) 07/09/21 04:05 Eos % (Auto) 0.4 % (0.9-2.9) L 07/09/21 04:05 Baso % (Auto) 0.2 % (0.2-1.0) 07/09/21 04:05 Neut # (Auto) 5.6 x10^3/uL (2.2-4.8) H 07/09/21 04:05 Lymph # (Auto) 0.8 X10^3/uL (1.3-2.9) L 07/09/21 04:05 [place] # (Auto) 0.6 x10^3/uL (0.3-0.8) 07/09/21 04:05 Eos # (Auto) 0.0 x10^3/uL (0.0-0.2) 07/09/21 04:05 Baso # (Auto) 0.0 X10^3/uL (0.0-0.1) 07/09/21 04:05 Absolute Nucleated RBC 0.0 /100WBC 07/09/21 04:05 PT 30.7 SECONDS (11.8-14.3) 07/06/21 12:25 INR Target Range - 07/06/21 12:25 INR 3.12 (0.8-1.3) H 07/06/21 12:25 APTT 50.0 SECONDS (22.9-36.5) H 07/06/21 12:25 PTT Comment - 07/06/21 12:25 Sodium 139 mmol/L (136-145) 07/09/21 04:05 Corrected Sodium 140 mmol/L (136-145) 07/09/21 04:05 Potassium 3.7 mmol/L (3.5-5.1) 07/09/21 04:05 Chloride 106 mmol/L (98-107) 07/09/21 04:05 Carbon Dioxide 21.7 mmol/L (21-32) 07/09/21 04:05 BUN 23 mg/dL (7-18) H 07/09/21 04:05 Creatinine 1.59 mg/dL (0.70-1.30) H 07/09/21 04:05 Est GFR (MDRD) Af Amer 55 (>60) L 07/09/21 04:05 Est GFR (MDRD) Non-Af 45 (>60) L 07/09/21 04:05 Glucose 161 mg/dL (65-99) H 07/09/21 04:05 POC Glucose (mg/dL) 153 mg/dL (65-99) H 07/09/21 05:22 Calcium 8.1 mg/dL (8.5-10.1) L 07/09/21 04:05 Corrected Calcium 9.2 mg/dL (8.5-10.1) 07/09/21 04:05 Magnesium 2.2 mg/dL (1.7-2.9) 07/08/21 05:08 Total Bilirubin 1.30 mg/dL (0.2-1.0) H 07/09/21 04:05 AST 13 Units/L (15-37) L 07/09/21 04:05 ALT 8 Units/L (12-78) L 07/09/21 04:05 Alkaline Phosphatase 79 Units/L (46-116) 07/09/21 04:05 Creatine Kinase 49 Units/L (39-308) 07/06/21 12:25 CK-MB (CK-2) < 1.0 ng/mL (0-4.0) 07/06/21 12:25 CK/CKMB % Calc 2.0 % (<4) 07/06/21 12:25 Troponin I High Sens 24.0 ng/L (4.0-60.0) 07/06/21 12:25 Total Protein 6.6 g/dL (6.4-8.2) 07/09/21 04:05 Albumin 2.6 g/dL (3.4-5.0) L 07/09/21 04:05 Globulin 4.0 g/dL (2.5-4.5) 07/09/21 04:05 Albumin/Globulin Ratio 0.7 Ratio (1.1-2.1) L 07/09/21 04:05 SARS CoV-2 RNA Rapid BETY Negative (NEGATIVE) 07/06/21 18:55 - Plan (1) Suspected cerebrovascular accident (CVA) Status: Acute Plan: OBTAIN BRAIN MRI, CARDIZEM CD 240MG PO DAILY, HYDRALAZINE 25MG PO TID, AND HIS HOME MEDICATIONS OF LIPITOR, PEPCID, LANTUS 43 UNITS SC HS, HUMALOG 12 UNITS SC TID, SYNTHROID, COZAAR, PROTONIX, XARELTO, AND FLOMAX WERE RESUMED. (2) Atrial fibrillation Status: Acute Qualifiers: Atrial fibrillation type: unspecified Qualified Code(s): I48.91 - Unspecified atrial fibrillation (3) Generalized weakness Status: Acute (4) Anemia, chronic renal failure Status: Acute Qualifiers: Chronic kidney disease stage: unspecified stage Qualified Code(s): N18.9 - Chronic kidney disease, unspecified; D63.1 - Anemia in chronic kidney disease (5) Hx of CABG Status: Acute (6) HTN (hypertension) Status: Acute Qualifiers: Hypertension type: primary hypertension Qualified Code(s): I10 - Essential (primary) hypertension (7) Diabetes mellitus Status: Acute Qualifiers: Diabetes mellitus type: type 2 Diabetes mellitus intermediate project manager insulin use: with [facility] use Diabetes mellitus complication status: with hyperglycemia Qualified Code(s): E11.65 - Type 2 diabetes mellitus with hyperglycemia; Z79.4 - FPC (current) use of insulin (8) Dyslipidemia Status: Acute (9) Hypothyroidism Status: Acute Qualifiers: Hypothyroidism type: acquired Qualified Code(s): E03.9 - Hypothyroidism, unspecified
--- NOTE | 2021-07-09 08:36 | PCM.PROG ---
Progress Note - Progress Note for Day of Date of Exam: 07/08/21 - Subjective Subjective: WAS ADMITTED FOR A-FIB, WEAKNESS, RULE OUT CVA. TODAY, HE IS ALERT AND ORIENTED, LYING IN BED ON MORNING ROUNDS. HE CONTINUES WITH COMPLAINTS OF GENERALIZED WEAKNESS, BUT DOES NOT HAVE ANY DIFFICULTY WITH SPEECH THIS MORNING. ON EXAMINATION, PUPILS PERRLA. HEART IS REGULAR IN RATE AND RHYTHM. BILATERAL LUNGS NOTED WITH DIMINISHED LUNG SOUNDS THROUGHOUT. ABDOMEN IS ROUND, SOFT, AND NON-TENDER WITH NORMAL BOWEL SOUNDS NOTED IN ALL QUADRANTS. HIS VITALS THIS MORNING ARE: 98.9-100-18-94%-138/79. LABS WERE OBTAINED. ABNORMAL LAB VALUES INCLUDE THE FOLLOWING: RBC 4.14, HGB 13.1, HCT 38.4, PLT COUNT 147, POTASSIUM 3.3, CALCIUM 8.4, TOTAL PROTEIN 1.40, ALT 8, ALBUMIN 3.0. WE OBTAINED A BRAIN MRI YESTERDAY. IT REVEALED: The midline structures appear unremarkable. The evaluation of the brain parenchyma demonstrates no abnormal signal characteristics to suggest intraparenchymal mass or hemorrhage. No extra-axial fluid collections are observed. The ventricular system appears symmetric and nondilated. The CP angle is normal in its appearance without brainstem mass or evidence for acoustic neuroma. The flow voids on both T1 and T2 weighted imaging appear unremarkable. Evaluation of the diffusion weighted imaging does not demonstrate abnormal signal characteristics to suggest acute ischemic change. 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 The extracranial structures are unremarkable. HE IS CURRENTLY RECEIVING CARDIZEM CD 240MG PO DAILY, HYDRALAZINE 25MG PO TID, AND HIS HOME MEDICATIONS OF LIPITOR, PEPCID, LANTUS 43 UNITS SC HS, HUMALOG 12 UNITS SC TID, SYNTHROID, COZAAR, PROTONIX, XARELTO, AND FLOMAX WERE RESUMED. PHYSICAL THERAPY WILL WORK WITH PATIENT TODAY. OTHERWISE, WE PLAN TO FOLLOW UP WITH AM LABS AND CONTINUE TO MONITOR. TIME SPENT ON CLINICAL ASSESSMENT, REVIEWING LABS AND IMAGING, DECISION MAKING, AND DOCUMENTATION GREATER THAN 45 MINUTES. - Past Medical Family Social History Past Med/Fam/Surg Hx: No changes since H&P Allergies: Allergies pseudoephedrine Allergy (Verified 11/23/20 17:33) - Review of Systems ROS: No change since H&P - Vital Signs and I&O's Vital Signs: Temperature 98 F Pulse Rate [Brachial] 96 Pulse Rate 113 Respiratory Rate 18 Blood Pressure [Right Arm] 123/70 Blood Pressure 154/79 O2 Sat by Pulse Oximetry 92 Intake and Output: Intake & Output 07/06/21 07/07/21 07/08/21 07/09/21 11:59 11:59 11:59 11:59 Intake Total 702 / 702 1020 / 1020 1287 / 1287 Output Total 250 / 250 325 / 325 Balance 452 / 452 695 / 695 1287 / 1287 - Physical Exam Oriented: Normal Eyes: Normal Ear: Normal Nose: Normal Throat: Normal Respiratory: Generalized, Diminished Cardiovascular: Tachycardia, Irregular : Normal Auscultation: Bowel Sounds: Normal Palpation: Normal Tenderness: Normal Skin: Normal Musculoskeletal: Normal Psychiatric: Normal Mood Description: Calm Affect: Normal Speech Pattern: Clear, Appropriate - Laboratory and Diagnostics Result Diagrams: 07/09/21 04:05 07/09/21 04:05 Labs: Laboratory WBC 7.1 X10^3/uL (3.6-10.0) 07/09/21 04:05 RBC 3.78 X10^6/uL (4.7-6.0) L 07/09/21 04:05 Hgb 11.9 g/dL (13.5-18.0) L 07/09/21 04:05 Hct 34.8 % (42.0-54.0) L 07/09/21 04:05 MCV 92.1 fL (80.0-100.0) 07/09/21 04:05 MCH 31.5 pg (27.0-34.0) 07/09/21 04:05 MCHC 34.2 g/dL (33.0-35.0) 07/09/21 04:05 RDW 15.3 % (11.6-16.5) 07/09/21 04:05 Plt Count 155 X10^3/uL (150.0-450.0) 07/09/21 04:05 MPV 9.2 fL (7.4-11.0) 07/09/21 04:05 Neut % (Auto) 79.6 % (42.0-75.0) H 07/09/21 04:05 Lymph % (Auto) 10.9 % (21.0-51.0) L 07/09/21 04:05 [place] % (Auto) 8.9 % (0.0-13.0) 07/09/21 04:05 Eos % (Auto) 0.4 % (0.9-2.9) L 07/09/21 04:05 Baso % (Auto) 0.2 % (0.2-1.0) 07/09/21 04:05 Neut # (Auto) 5.6 x10^3/uL (2.2-4.8) H 07/09/21 04:05 Lymph # (Auto) 0.8 X10^3/uL (1.3-2.9) L 07/09/21 04:05 [place] # (Auto) 0.6 x10^3/uL (0.3-0.8) 07/09/21 04:05 Eos # (Auto) 0.0 x10^3/uL (0.0-0.2) 07/09/21 04:05 Baso # (Auto) 0.0 X10^3/uL (0.0-0.1) 07/09/21 04:05 Absolute Nucleated RBC 0.0 /100WBC 07/09/21 04:05 PT 30.7 SECONDS (11.8-14.3) 07/06/21 12:25 INR Target Range - 07/06/21 12:25 INR 3.12 (0.8-1.3) H 07/06/21 12:25 APTT 50.0 SECONDS (22.9-36.5) H 07/06/21 12:25 PTT Comment - 07/06/21 12:25 Sodium 139 mmol/L (136-145) 07/09/21 04:05 Corrected Sodium 140 mmol/L (136-145) 07/09/21 04:05 Potassium 3.7 mmol/L (3.5-5.1) 07/09/21 04:05 Chloride 106 mmol/L (98-107) 07/09/21 04:05 Carbon Dioxide 21.7 mmol/L (21-32) 07/09/21 04:05 BUN 23 mg/dL (7-18) H 07/09/21 04:05 Creatinine 1.59 mg/dL (0.70-1.30) H 07/09/21 04:05 Est GFR (MDRD) Af Amer 55 (>60) L 07/09/21 04:05 Est GFR (MDRD) Non-Af 45 (>60) L 07/09/21 04:05 Glucose 161 mg/dL (65-99) H 07/09/21 04:05 POC Glucose (mg/dL) 153 mg/dL (65-99) H 07/09/21 05:22 Calcium 8.1 mg/dL (8.5-10.1) L 07/09/21 04:05 Corrected Calcium 9.2 mg/dL (8.5-10.1) 07/09/21 04:05 Magnesium 2.2 mg/dL (1.7-2.9) 07/08/21 05:08 Total Bilirubin 1.30 mg/dL (0.2-1.0) H 07/09/21 04:05 AST 13 Units/L (15-37) L 07/09/21 04:05 ALT 8 Units/L (12-78) L 07/09/21 04:05 Alkaline Phosphatase 79 Units/L (46-116) 07/09/21 04:05 Creatine Kinase 49 Units/L (39-308) 07/06/21 12:25 CK-MB (CK-2) < 1.0 ng/mL (0-4.0) 07/06/21 12:25 CK/CKMB % Calc 2.0 % (<4) 07/06/21 12:25 Troponin I High Sens 24.0 ng/L (4.0-60.0) 07/06/21 12:25 Total Protein 6.6 g/dL (6.4-8.2) 07/09/21 04:05 Albumin 2.6 g/dL (3.4-5.0) L 07/09/21 04:05 Globulin 4.0 g/dL (2.5-4.5) 07/09/21 04:05 Albumin/Globulin Ratio 0.7 Ratio (1.1-2.1) L 07/09/21 04:05 SARS CoV-2 RNA Rapid BETY Negative (NEGATIVE) 07/06/21 18:55 - Plan (1) Suspected cerebrovascular accident (CVA) Status: Acute Plan: CARDIZEM CD 240MG PO DAILY, HYDRALAZINE 25MG PO TID, AND HIS HOME MEDICATIONS OF LIPITOR, PEPCID, LANTUS 43 UNITS SC HS, HUMALOG 12 UNITS SC TID, SYNTHROID, COZAAR, PROTONIX, XARELTO, AND FLOMAX WERE RESUMED. (2) Atrial fibrillation Status: Acute Qualifiers: Atrial fibrillation type: unspecified Qualified Code(s): I48.91 - Unspecified atrial fibrillation (3) Generalized weakness Status: Acute (4) Anemia, chronic renal failure Status: Acute Qualifiers: Chronic kidney disease stage: unspecified stage Qualified Code(s): N18.9 - Chronic kidney disease, unspecified; D63.1 - Anemia in chronic kidney disease (5) Hx of CABG Status: Acute (6) HTN (hypertension) Status: Acute Qualifiers: Hypertension type: primary hypertension Qualified Code(s): I10 - Essential (primary) hypertension (7) Diabetes mellitus Status: Acute Qualifiers: Diabetes mellitus type: type 2 Diabetes mellitus terminal gauger insulin use: with terminal gauger use Diabetes mellitus complication status: with hyperglycemia Qualified Code(s): E11.65 - Type 2 diabetes mellitus with hyperglycemia; Z79.4 - manager long term care (current) use of insulin (8) Dyslipidemia Status: Acute (9) Hypothyroidism Status: Acute Qualifiers: Hypothyroidism type: acquired Qualified Code(s): E03.9 - Hypothyroidism, unspecified
[2021-07-09] MEDS: PEPCID TAB 40 MG PO SCH (08:58)
[2021-07-09] MEDS: CARDIZEM CD 240 MG 24-HR PO SCH (08:58)
[2021-07-09] MEDS: XARELTO PO SCH (08:58)
[2021-07-09] MEDS: PROTONIX TAB 40 MG PO SCH ×2 (08:58→20:48)
[2021-07-09] MEDS: SYNTHROID 50 mcg TAB PO SCH (08:58)
--- NOTE | 2021-07-09 09:33 | RAD ---
HISTORYFEVERSTUDYCHEST x-ray, 1 VIEWCOMPARISONX-ray 07/06/2021FINDINGSProbable CHF with pulmonary edema and small pleural effusions. Findings may have slightly worsened since prior study. Prior sternotomy. No pneumothorax is seen.IMPRESSIONProbable CHF with pulmonary edema and small pleural effusions. Findings may have slightly worsened since prior study.Electronically signed by: Gary Noriega (Jul 09, 2021 09:32:30)
--- NOTE | 2021-07-09 09:49 | PCM.PROG ---
Progress Note - Progress Note for Day of Date of Exam: 07/09/21 - Subjective Subjective: WAS ADMITTED FOR A-FIB, WEAKNESS, RULE OUT CVA. TODAY, HE IS ALERT AND ORIENTED, LYING IN BED ON MORNING ROUNDS. HE CONTINUES WITH COMPLAINTS OF GENERALIZED WEAKNESS, BUT DOES NOT HAVE ANY DIFFICULTY WITH SPEECH THIS MORNING. SPOUSE REPORTS THAT HE HAS BEEN CONFUSED AT TIMES. NURSING STAFF REPORTS UNSTEADY GAIT AND THAT PATIENT REQUIRES ASSISTANCE WITH AMBULATION. THEY ALSO REPORT THAT PATIENT HAS HAD DARK COLORED URINE. HE WAS FEBRILE THROUGHOUT THE NIGHT. ON EXAMINATION, PUPILS PERRLA. HEART IS REGULAR IN RATE AND RHYTHM. BILATERAL LUNGS NOTED WITH DIMINISHED LUNG SOUNDS THROUGHOUT. ABDOMEN IS ROUND, SOFT, AND NON-TENDER WITH NORMAL BOWEL SOUNDS NOTED IN ALL QUADRANTS. HIS VITALS THIS MORNING ARE: 98.0-96-18-92%-123/70. LABS WERE OBTAINED. ABNORMAL LAB VALUES INCLUDE THE FOLLOWING: RBC 3.78, HGB 11.9, HCT 34.8, BUN 23, CREATININE 1.59, GLUCOSE 161, CALCIUM 8.1, TOTAL BILI 1.30, AST 13, ALT 8, ALBUMIN 2.6. HE IS CURRENTLY RECEIVING CARDIZEM CD 240MG PO DAILY, HYDRALAZINE 25MG PO TID, AND HIS HOME MEDICATIONS OF LIPITOR, PEPCID, LANTUS 43 UNITS SC HS, HUMALOG 12 UNITS SC TID, SYNTHROID, COZAAR, PROTONIX, XARELTO, AND FLOMAX WERE RESUMED. TODAY, WE WILL ADD NORMAL SALINE AT 75 ML/HR AND CIPRO 400MG IV BID FOR TREATMENT OF UTI. PHYSICAL THERAPY WILL WORK WITH PATIENT TODAY. OTHERWISE, WE PLAN TO FOLLOW UP WITH AM LABS AND CONTINUE TO MONITOR. TIME SPENT ON CLINICAL ASSESSMENT, REVIEWING LABS AND IMAGING, DECISION MAKING, AND DOCUMENTATION GREATER THAN 45 MINUTES. - Past Medical Family Social History Past Med/Fam/Surg Hx: No changes since H&P Allergies: Allergies pseudoephedrine Allergy (Verified 11/23/20 17:33) - Review of Systems ROS: No change since H&P - Vital Signs and I&O's Vital Signs: Temperature 98 F Pulse Rate [Brachial] 96 Pulse Rate 113 Respiratory Rate 18 Blood Pressure [Right Arm] 123/70 Blood Pressure 154/79 O2 Sat by Pulse Oximetry 92 Intake and Output: Intake & Output 07/06/21 07/07/21 07/08/21 07/09/21 11:59 11:59 11:59 11:59 Intake Total 702 / 702 1020 / 1020 1287 / 1287 Output Total 250 / 250 325 / 325 Balance 452 / 452 695 / 695 1287 / 1287 - Physical Exam Oriented: Normal Eyes: Normal Ear: Normal Nose: Normal Throat: Normal Respiratory: Generalized, Diminished Cardiovascular: Normal, Irregular : Normal Auscultation: Bowel Sounds: Normal Palpation: Normal Tenderness: Normal Skin: Normal Musculoskeletal: Normal Psychiatric: Normal Mood Description: Calm Affect: Normal Speech Pattern: Clear, Appropriate - Laboratory and Diagnostics Result Diagrams: 07/09/21 04:05 07/09/21 04:05 Labs: Laboratory WBC 7.1 X10^3/uL (3.6-10.0) 07/09/21 04:05 RBC 3.78 X10^6/uL (4.7-6.0) L 07/09/21 04:05 Hgb 11.9 g/dL (13.5-18.0) L 07/09/21 04:05 Hct 34.8 % (42.0-54.0) L 07/09/21 04:05 MCV 92.1 fL (80.0-100.0) 07/09/21 04:05 MCH 31.5 pg (27.0-34.0) 07/09/21 04:05 MCHC 34.2 g/dL (33.0-35.0) 07/09/21 04:05 RDW 15.3 % (11.6-16.5) 07/09/21 04:05 Plt Count 155 X10^3/uL (150.0-450.0) 07/09/21 04:05 MPV 9.2 fL (7.4-11.0) 07/09/21 04:05 Neut % (Auto) 79.6 % (42.0-75.0) H 07/09/21 04:05 Lymph % (Auto) 10.9 % (21.0-51.0) L 07/09/21 04:05 [place] % (Auto) 8.9 % (0.0-13.0) 07/09/21 04:05 Eos % (Auto) 0.4 % (0.9-2.9) L 07/09/21 04:05 Baso % (Auto) 0.2 % (0.2-1.0) 07/09/21 04:05 Neut # (Auto) 5.6 x10^3/uL (2.2-4.8) H 07/09/21 04:05 Lymph # (Auto) 0.8 X10^3/uL (1.3-2.9) L 07/09/21 04:05 [place] # (Auto) 0.6 x10^3/uL (0.3-0.8) 07/09/21 04:05 Eos # (Auto) 0.0 x10^3/uL (0.0-0.2) 07/09/21 04:05 Baso # (Auto) 0.0 X10^3/uL (0.0-0.1) 07/09/21 04:05 Absolute Nucleated RBC 0.0 /100WBC 07/09/21 04:05 PT 30.7 SECONDS (11.8-14.3) 07/06/21 12:25 INR Target Range - 07/06/21 12:25 INR 3.12 (0.8-1.3) H 07/06/21 12:25 APTT 50.0 SECONDS (22.9-36.5) H 07/06/21 12:25 PTT Comment - 07/06/21 12:25 Sodium 139 mmol/L (136-145) 07/09/21 04:05 Corrected Sodium 140 mmol/L (136-145) 07/09/21 04:05 Potassium 3.7 mmol/L (3.5-5.1) 07/09/21 04:05 Chloride 106 mmol/L (98-107) 07/09/21 04:05 Carbon Dioxide 21.7 mmol/L (21-32) 07/09/21 04:05 BUN 23 mg/dL (7-18) H 07/09/21 04:05 Creatinine 1.59 mg/dL (0.70-1.30) H 07/09/21 04:05 Est GFR (MDRD) Af Amer 55 (>60) L 07/09/21 04:05 Est GFR (MDRD) Non-Af 45 (>60) L 07/09/21 04:05 Glucose 161 mg/dL (65-99) H 07/09/21 04:05 POC Glucose (mg/dL) 153 mg/dL (65-99) H 07/09/21 05:22 Calcium 8.1 mg/dL (8.5-10.1) L 07/09/21 04:05 Corrected Calcium 9.2 mg/dL (8.5-10.1) 07/09/21 04:05 Magnesium 2.2 mg/dL (1.7-2.9) 07/08/21 05:08 Total Bilirubin 1.30 mg/dL (0.2-1.0) H 07/09/21 04:05 AST 13 Units/L (15-37) L 07/09/21 04:05 ALT 8 Units/L (12-78) L 07/09/21 04:05 Alkaline Phosphatase 79 Units/L (46-116) 07/09/21 04:05 Creatine Kinase 49 Units/L (39-308) 07/06/21 12:25 CK-MB (CK-2) < 1.0 ng/mL (0-4.0) 07/06/21 12:25 CK/CKMB % Calc 2.0 % (<4) 07/06/21 12:25 Troponin I High Sens 24.0 ng/L (4.0-60.0) 07/06/21 12:25 Total Protein 6.6 g/dL (6.4-8.2) 07/09/21 04:05 Albumin 2.6 g/dL (3.4-5.0) L 07/09/21 04:05 Globulin 4.0 g/dL (2.5-4.5) 07/09/21 04:05 Albumin/Globulin Ratio 0.7 Ratio (1.1-2.1) L 07/09/21 04:05 SARS CoV-2 RNA Rapid BETY Negative (NEGATIVE) 07/06/21 18:55 - Plan (1) Atrial fibrillation Status: Acute Qualifiers: Atrial fibrillation type: unspecified Qualified Code(s): I48.91 - Unspecified atrial fibrillation Plan: NS AT 75 ML/HR, CIPRO 400MG IV BID, CARDIZEM CD 240MG PO DAILY, HYDRALAZINE 25MG PO TID, AND HIS HOME MEDICATIONS OF LIPITOR, PEPCID, LANTUS 43 UNITS SC HS, HUMALOG 12 UNITS SC TID, SYNTHROID, COZAAR, PROTONIX, XARELTO, AND FLOMAX WERE RESUMED. (2) Urinary tract infection Status: Acute Qualifiers: Urinary tract infection type: site unspecified (3) Generalized weakness Status: Acute (4) Anemia, chronic renal failure Status: Acute Qualifiers: Chronic kidney disease stage: unspecified stage Qualified Code(s): N18.9 - Chronic kidney disease, unspecified; D63.1 - Anemia in chronic kidney disease (5) Hx of CABG Status: Acute (6) HTN (hypertension) Status: Acute Qualifiers: Hypertension type: primary hypertension Qualified Code(s): I10 - Essential (primary) hypertension (7) Diabetes mellitus Status: Acute Qualifiers: Diabetes mellitus type: type 2 Diabetes mellitus truck terminal manager insulin use: with nursing home use Diabetes mellitus complication status: with hyperglycemia Qualified Code(s): E11.65 - Type 2 diabetes mellitus with hyperglycemia; Z79.4 - joint terminal attack controller (current) use of insulin (8) Dyslipidemia Status: Acute (9) Hypothyroidism Status: Acute Qualifiers: Hypothyroidism type: acquired Qualified Code(s): E03.9 - Hypothyroidism, unspecified
[2021-07-09] MEDS ORDERED: NS 1,000 ML IV 1,000 ML ONE (11:05)
[2021-07-09] MEDS: CIPRO IV 400 MG PREMIX* 400 MG/200 ML IV.SOLN. IV SCH ×2 (11:08→20:52)
[2021-07-09] MEDS: NS 1,000 ML IV 1,000 ML IV SCH (11:08)
[2021-07-09 11:09] LABS: BILIRUBIN,URINE 1+ (NEGATIVE); BLOOD/HEMOGLOBIN,URINE 2+ (NEGATIVE); GLUCOSE, URINE NEGATIVE (NEGATIVE); KETONES,URINE NEGATIVE (NEGATIVE); LEUKOCYTE ESTERASE ,URINE NEGATIVE (NEGATIVE); NITRITES,URINE NEGATIVE (NEGATIVE); PROTEIN,URINE 3+ (NEGATIVE); UROBILINOGEN,URINE 1+ (NORMAL)
[2021-07-09 11:33] LABS: APPEARANCE,URINE CLOUDY (CLEAR); COLOR,URINE AMBER (YELLOW)
[2021-07-09 11:34] LABS: BACTERIA,URINE TRACE /HPF (NEGATIVE); SQUAMOUS EPITHELIAL CELL,UR RARE /HPF (NEGATIVE)
[2021-07-09] MEDS: COZAAR PO SCH (20:48)
[2021-07-09] MEDS: LIPITOR TAB 40 MG PO SCH (20:48)
[2021-07-09] MEDS: FLOMAX PO SCH (20:48)
[2021-07-09] MEDS: SNACK - Diabetic Appropriate PO SCH (20:53)
[2021-07-09] MEDS: LANTUS SC SCH (22:14)
[2021-07-10] MEDS: NS 1,000 ML IV 1,000 ML IV SCH ×2 (00:36→05:23)
[2021-07-10] MEDS: APRESOLINE TAB 25 MG PO SCH (05:24)
[2021-07-10] MEDS: HumaLOG SC SCH (05:28)
[2021-07-10 06:33] LABS: BASOPHILS % (AUTO) 0.2 % (0.2-1.0); EOSINOPHILS # (AUTO) 0.1 x10^3/uL (0.0-0.2); EOSINOPHILS % (AUTO) 1.8 % (0.9-2.9); HEMATOCRIT 32.3 % (42.0-54.0); HEMOGLOBIN 11.1 g/dL (13.5-18.0); LYMPHOCYTES # (AUTO) 0.8 X10^3/uL (1.3-2.9); LYMPHOCYTES % (AUTO) 18.8 % (21.0-51.0); MEAN CORPUSCULAR HEMOGLOBIN 31.4 pg (27.0-34.0); MEAN CORPUSCULAR HGB CONC 34.4 g/dL (33.0-35.0); MEAN CORPUSCULAR VOLUME 91.1 fL (80.0-100.0); MEAN PLATELET VOLUME 9.3 fL (7.4-11.0); MONOCYTES # (AUTO) 0.4 x10^3/uL (0.3-0.8); MONOCYTES % (AUTO) 10.2 % (0.0-13.0); RED BLOOD COUNT 3.54 X10^6/uL (4.7-6.0); RED CELL DISTRIBUTION WIDTH 15.3 % (11.6-16.5); WHITE BLOOD COUNT 4.3 X10^3/uL (3.6-10.0)
[2021-07-10 06:49] LABS: ALANINE AMINOTRANSFERASE 11 Units/L (12-78); ALBUMIN 2.5 g/dL (3.4-5.0); ALKALINE PHOSPHATASE 77 Units/L (46-116); ASPARTATE AMINO TRANSFERASE 22 Units/L (15-37); BLOOD UREA NITROGEN 24 mg/dL (7-18); CALCIUM 8.3 mg/dL (8.5-10.1); CHLORIDE 107 mmol/L (98-107); COR CA(FOR HYPOALB) 9.5 mg/dL (8.5-10.1); SODIUM 139 mmol/L (136-145); TOTAL PROTEIN 6.4 g/dL (6.4-8.2); eGFR NON BLACK RACES 52 (>60)
[2021-07-10] MEDS: CIPRO IV 400 MG PREMIX* 400 MG/200 ML IV.SOLN. IV SCH (08:58)
[2021-07-10] MEDS: SYNTHROID 50 mcg TAB PO SCH (08:59)
[2021-07-10] MEDS: CARDIZEM CD 240 MG 24-HR PO SCH (08:59)
[2021-07-10] MEDS: PROTONIX TAB 40 MG PO SCH (08:59)
[2021-07-10] MEDS: PEPCID TAB 40 MG PO SCH (08:59)
[2021-07-10] MEDS: XARELTO PO SCH (09:00)
[2021-07-10] MEDS: K-DUR TAB 20 MEQ PO PRN (09:00)
[2021-07-10 09:11] VITALS: BP 134/75
== END 2021-07-10 11:45 | disposition home health service (06) | DRG 69 ==
LOC: ER 11:37 → MED/SURG 11:37
PROVIDERS: ADMIT Internal Medicine; ATTEND Internal Medicine
DX: D63.1 Anemia in chronic kidney disease; N18.9 Chronic kidney disease, unspecified; I48.91 Unspecified atrial fibrillation; E11.65 Type 2 diabetes mellitus with hyperglycemia; R51.9 Headache, unspecified; I25.10 Atherosclerotic heart disease of native coronary artery without angina pectoris; R13.11 Dysphagia, oral phase; R79.1 Abnormal coagulation profile; R26.81 Unsteadiness on feet; Z20.822 Contact with and (suspected) exposure to COVID-19; N39.0 Urinary tract infection, site not specified; I12.9 Hypertensive chronic kidney disease with stage 1 through stage 4 chronic kidney disease, or unspecified chronic kidney disease; Z95.1 Presence of aortocoronary bypass graft; E78.2 Mixed hyperlipidemia; R94.31 Abnormal electrocardiogram [ECG] [EKG]; G45.8 Other transient cerebral ischemic attacks and related syndromes; R53.1 Weakness; Z79.4 Long term (current) use of insulin